=== PATIENT | female | born 1955 | race Two or more races ===

== ENCOUNTER 2020-01-14 08:46 | Outpatient (REF) | payer OTHER, SELFPAY | END 2020-01-14 08:47 | disposition home or self-care (01) | LOC: HO.LAB 08:46 | PROVIDERS: Visit Provider Internal Medicine | DX: Z20.828 Contact with and (suspected) exposure to other viral communicable diseases (principal) | CPT/HCPCS: 87635 ==

== ENCOUNTER 2021-02-04 11:24 | Outpatient (REF) | payer OTHER, SELFPAY | END 2021-02-04 11:25 | disposition home or self-care (01) | LOC: HO.LAB 11:24 | PROVIDERS: PCP Internal Medicine; Visit Provider Internal Medicine | DX: Z20.822 Contact with and (suspected) exposure to COVID-19 (principal) | CPT/HCPCS: C9803; U0003; U0005 ==

== ENCOUNTER 2021-08-08 13:00 | Outpatient (REF) | payer OTHER, SELFPAY ==
[2021-08-08 14:11] LABS: MANUAL DIFF FLAG NO
[2021-08-08 14:44] LABS: Basophils Percent Auto 0.4 % (0-2); Eosinophils Absolute Auto 0.2 X10*3/uL (0.0-0.4); Hemoglobin 11.7 g/dl (12.0-16.0); Imm Gran Abs Auto 0.01 X10*3/uL (0.00-0.03); Imm Gran Pct Auto 0.1 % (0.0-0.4); Lymphocytes Absolute Auto 3.9 X10*3/uL (1.2-4.9); Lymphocytes Percent Auto 51.4 % (20-40); Mean Corpuscular HGB Conc 32.5 g/dl (31.0-35.0); Mean Corpuscular Volume 95.2 fL (80.0-98.0); Mean Platelet Volume 10.8 fL (9.4-12.3); Monocytes Absolute Auto 0.7 X10*3/uL (0.1-1.2); Monocytes Percent Auto 8.9 % (2-11); Neutrophils Absolute Auto 2.8 x10*3/uL (2.0-8.3); Neutrophils Percent Auto 36.2 % (45-73); Platelet Count 268 X10*3/uL (160-400); Red Blood Count 3.78 X10*6/uL (4.20-5.50); Red Cell Distribution Width 12.7 % (11.0-16.0); White Blood Count 7.6 X10*3/uL (4.8-10.8)
[2021-08-08 15:07] LABS: C Reactive Protein 0.39 mg/dL (< or = 0.50)
[2021-08-08 15:23] LABS: Erythrocyte Sedimentation Rate 9 MM/HR (0-20)
[2021-08-11 16:54] LABS: Vitamin D 25-OH, D2 12 ng/mL; Vitamin D 25-OH, D3 14 ng/mL; Vitamin D 25-OH, Total 26 ng/mL (30-100)
== END 2021-08-08 13:01 | disposition home or self-care (01) ==
LOC: HO.LAB 13:00
PROVIDERS: PCP Internal Medicine; Visit Provider Internal Medicine Rheumatology
DX: M05.9 Rheumatoid arthritis with rheumatoid factor, unspecified (principal); M85.80 Other specified disorders of bone density and structure, unspecified site; Z78.0 Asymptomatic menopausal state; Z79.899 Other long term (current) drug therapy
CPT/HCPCS: 36415; 82306; 85025; 85652; 86140

== ENCOUNTER 2021-08-11 11:18 | Inpatient (IN) | payer MEDICARE, OTHER, SELFPAY ==
--- NOTE | ~2021-08-11 | XR_ITS ---
EXAMINATION: XR CHEST CLINICAL INFORMATION: Dyspnea COMPARISON: 10/29/2018 TECHNIQUE: Frontal view of the chest was obtained. FINDINGS: Density at the right lateral lung base. This could represent the patient's nipple shadow or possible underlying lung nodularity.. This cannot be said with certainty. The left lung is clear. There is no failure or obvious infiltrate. No effusion. The cardiac silhouette is comparable. XR/XR chest 1V IMPRESSION: Density at the right lung base. This could represent a lung lesion versus the patient's nipple. Recommend PA and lateral films with nipple markers to further evaluate versus CT. Otherwise no acute finding
--- NOTE | ~2021-08-11 | NM_ITS ---
EXAMINATION: NM LUNG IMAGE PERFUSION CLINICAL INFORMATION: Dyspnea. New onset atrial fibrillation COMPARISON: 08/11/2021 chest x-ray TECHNIQUE: Multiple oblique gamma camera images of the chest were obtained following the intravenous injection of 3.8 mCi of technetium 99m MAA. FINDINGS: There is homogeneous distribution of activity within both lungs. No fixed segmental or subsegmental defects were identified. NM/NM pul perfusion IMPRESSION: Homogeneous distribution of activity with no focal subsegmental or segmental defects seen. Normal perfusion study.
[2021-08-11 11:21] VITALS: BP 129/84; PULSE 118; RESP 16; TEMP 35.9; O2SAT 98; BMI 28.3
--- NOTE | 2021-08-11 11:23 | ECG_ITS ---
Test Reason : diff breathing Blood Pressure : / mmHG Vent. Rate : 149 BPM Atrial Rate : 000 BPM P-R Int : 000 ms QRS Dur : 088 ms QT Int : 294 ms P-R-T Axes : 000 -08 076 degrees QTc Int : 463 ms Atrial fibrillation with rapid ventricular response Minimal voltage criteria for LVH, may be normal variant ( Eddie product ) Anterior infarct , age undetermined Abnormal ECG When compared to the previous EKG of 28 oct 2018, rhythm change Referred By: Generic ED Physician Electronically Signed By:BRETT BENTLEY
[2021-08-11 11:41] LABS: Basophils Percent Auto 0.3 % (0-2); Eosinophils Absolute Auto 0.2 X10*3/uL (0.0-0.4); Eosinophils Percent Auto 3.3 % (0-4); Hematocrit 39.1 % (37.0-47.0); Hemoglobin 12.9 g/dl (12.0-16.0); Imm Gran Abs Auto 0.01 X10*3/uL (0.00-0.03); Imm Gran Pct Auto 0.1 % (0.0-0.4); Lymphocytes Absolute Auto 4.5 X10*3/uL (1.2-4.9); Lymphocytes Percent Auto 64.9 % (20-40); MANUAL DIFF FLAG SCAN; Mean Corpuscular Hemoglobin 30.9 pg (27.0-33.0); Mean Corpuscular Volume 93.5 fL (80.0-98.0); Monocytes Absolute Auto 0.6 X10*3/uL (0.1-1.2); Monocytes Percent Auto 8.4 % (2-11); Neutrophils Absolute Auto 1.6 x10*3/uL (2.0-8.3); Platelet Count 277 X10*3/uL (160-400); Red Blood Count 4.18 X10*6/uL (4.20-5.50); Red Cell Distribution Width 12.8 % (11.0-16.0); SCAN SMEAR FLAG 1; White Blood Count 6.9 X10*3/uL (4.8-10.8)
[2021-08-11 11:50] LABS: Prothrombin Time 11.7 SEC (9.9-13.0)
[2021-08-11 11:56] LABS: Anion Gap 10 (12-20); Blood Urea Nitrogen 9 mg/dL (9-16); Calcium 9.3 mg/dL (8.4-10.2); Carbon Dioxide 27 mmol/L (22-29); Chloride 106 mmol/L (96-108); Estimated Glomerular Filt Rate > 60; Glucose Random 118 mg/dL (60-115); Potassium 4.1 mmol/L (3.3-5.1); Sodium 139 mmol/L (135-145)
[2021-08-11 11:58] LABS: SLIDE REVIEW VERIFIED
[2021-08-11 12:01] LABS: Troponin-I High Sensitivity 11.8 ng/L (<3.5-17.0)
--- NOTE | 2021-08-11 12:42 | ED_ITS ---
HPI - SOB/Dyspnea General Chief Complaint: Weakness Stated Complaint: diff breathing feels weird Time Seen by Provider: 08/11/21 12:33 Source: patient Mode of arrival: ambulatory Limitations: no limitations History of Present Illness MD elicited complaint: shortness of breath (fatigue, malaise, just doesn't feel well) Onset (ago): day(s) (last night) Timing: constant Severity: moderate Exacerbating factors: exertion and movement Relieving factors: rest Associated symptoms: cough, dizziness and lightheadedness Treatment prior to arrival: none Related Data Home Medications Medication Instructions Recorded Confirmed acetaminophen 650 mg 650 mg PO DAILY tab 08/08/21 08/08/21 tablet,extended release (Tylenol 8 Hour) aspirin 81 mg tablet,delayed 81 mg PO DAILY 08/08/21 08/08/21 release (Adult Low Dose Aspirin) clobetasol 0.05 % topical cream 1 appl TOPICAL BID PRN 08/08/21 08/08/21 etanercept 50 mg/mL (1 mL) 50 mg SUBCUT QWEEK 08/08/21 08/08/21 subcutaneous pen injector (Enbrel SureClick) ibuprofen 600 mg tablet 600 mg PO .prn rarely PRN tab 08/08/21 08/08/21 lisinopril 40 mg tablet 40 mg PO DAILY 08/08/21 08/08/21 oxabplpx-dwq-ucayb acid 0.4 1 tab PO DAILY 08/08/21 08/08/21 mg-lycopene 300 mcg-lutein 250 mcg tablet (Centrum Silver) omeprazole 20 mg capsule,delayed 20 mg PO DAILY 08/08/21 08/08/21 release triamcinolone acetonide 0.05 % 1 appl TOPICAL BID PRN 08/08/21 08/08/21 topical ointment Allergies Allergy/AdvReac Type Severity Reaction Status Date / Time ciprofloxacin [From Cipro] Allergy Intermediate Rash Verified 08/08/21 13:22 codeine Allergy Intermediate rash Verified 08/08/21 13:22 Review of Systems Review of Systems: Constitutional : No Fever, No Chills, pos fatigue ENT/Mouth : No sore throat, No Rhinorrhea, No Swallowing Difficulty Eyes: No Eye Pain, No Swelling, No Redness Cardiovascular : No Chest Pain, positive SOB, No Orthopnea, no Edema Respiratory : pos Cough, No Sputum, No Wheezing, positive dyspnea Gastrointestinal : No Nausea, No Vomiting, No Diarrhea, No abdominal Pain, No Hematochezia, No Melena Genitourinary : No Dysuria, pos Urinary Frequency, No Hematuria Musculoskeletal : No joint pain, No Myalgias Skin : No Skin Lesions, No rash Neuro : No Weakness, No Numbness, No Dizziness, No Headache Psych : No Anxiety/Panic, No Depression Heme/Lymph: No Bruising, No Lymphadenopathy Endocrine : No Polyuria, No Polydipsia All other systems reviewed and are negative [facility] Past Medical History Attestation statement: The following information was validated with the patient. Medical History History of myocardial infarction Hypertension Long-term use of immunosuppressant medication Osteopenia after menopause Seropositive rheumatoid arthritis Social History Social History Household Members: Spouse and Family Housing: House Are you a primary palliative care specialist to a significant other at home: No Do you presently have visiting nurse or other home services: No Alcohol intake: never Patient Tobacco Use Status: Former Tobacco user Years Smoked: quit 30-40 years ago e-Cigarette/Vaping Use: Never Used Use of substances other than those prescribed or required for medical reasons: No Advance Directives: Yes Advance Directives on File: Yes Advance Directives Date on File: 08/11/21 service: No Current occupational status: employed 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 Oriented X3. No acute distress. Eyes: Pupils equal, round and reactive to light. ENT: Pharynx normal. Neck: Normal inspection. Neck supple. CVS: tachycardic and irregular heart rate and rhythm. Pulses normal. Respiratory: No respiratory distress. Breath sounds normal. Abdomen: Soft and nontender. Skin: Skin warm and dry. Normal skin color. Normal skin turgor. Extremities: trace pitting lower extremity edema ankle to mid bull. No calf ttp Neuro: Oriented X 3. No motor deficit. No sensory deficit. Course Course Course Narrative: good response will give IV lopressor 2.5mg BP stable mildly elevated ddimer VQ scan ordered hemoglobin, plts stable normal coags and renal function could start on eliquis - chadsvasc score 4 eliquis 5mg BID repeat IV lopressor HR down to 120s went of DOAC with patient - daughter and here aware would be okay with eliquis risks and benefits explained no hx of bleeding issues will admit given HR up and down to 130s at times but then down to 80s symptomatic with standing hospitalist to follow up on VQ scan MDM - SOB/Dyspnea MDM Narrative Medical decision making narrative: 66 yo female with hx of RA, GERD, HTN, prior [place] comes in with feeling fatigue, weak, increased urinary frequency has no CP but feels mildy short of breath - she noted a dry cough since last night. At this time she is in afib which is new for the patient. Will obtain labs, CXR, IV lopressor for rate control. Dispo per results and rate control. Lab Data Result diagrams: 08/11/21 11:30 08/11/21 11:30 Labs: Lab Results 08/11/21 08/11/21 08/11/21 Range/Units 11:30 11:30 11:30 WBC 6.9 (4.8-10.8) X10*3/uL RBC 4.18 L (4.20-5.50) X10*6/uL Hgb 12.9 (12.0-16.0) g/dl Hct 39.1 (37.0-47.0) % MCV 93.5 (80.0-98.0) fL MCH 30.9 (27.0-33.0) pg MCHC 33.0 (31.0-35.0) g/dl RDW 12.8 (11.0-16.0) % Plt Count 277 (160-400) X10*3/uL MPV 10.0 (9.4-12.3) fL Immature Gran % (Auto) 0.1 (0.0-0.4) % Neut % (Auto) 23.0 L (45-73) % Lymph % (Auto) 64.9 H (20-40) % Trigg % (Auto) 8.4 (2-11) % Eos % (Auto) 3.3 (0-4) % Baso % (Auto) 0.3 (0-2) % Lymph # (Auto) 4.5 (1.2-4.9) X10*3/uL Trigg # (Auto) 0.6 (0.1-1.2) X10*3/uL Eos # (Auto) 0.2 (0.0-0.4) X10*3/uL Baso # (Auto) 0.0 (0.0-0.2) X10*3/uL Abs Immat Gran (auto) 0.01 (0.00-0.03) X10*3/uL Absolute Neuts (auto) 1.6 L (2.0-8.3) x10*3/uL Absolute Nucleated RBC 0.000 (0.0-0.012) X10*3/uL Nucleated RBC % (auto) 0.0 (0.0-0.2) /100WBC Smear Tech's Comments VERIFIED PT 11.7 (9.9-13.0) SEC INR 1.0 (0.9-1.1) D-Dimer High Sensitivty NG/ML Sodium 139 (135-145) mmol/L Potassium 4.1 (3.3-5.1) mmol/L Chloride 106 (96-108) mmol/L Carbon Dioxide 27 (22-29) mmol/L Anion Gap 10 L (12-20) BUN 9 (9-16) mg/dL Creatinine 0.72 (0.5-1.4) mg/dL Estim Creat Clear Calc 74.0 Estimated GFR > 60 Random Glucose 118 H (60-115) mg/dL Calcium 9.3 (8.4-10.2) mg/dL Magnesium 1.8 (1.6-2.6) mg/dL Total Bilirubin 1.3 H (0.0-1.0) mg/dL Direct Bilirubin 0.5 (0.0-0.5) mg/dL AST 23 (5-31) U/L ALT 15 (0-31) U/L Alkaline Phosphatase 89 (39-117) U/L Troponin I High Sens (<3.5-17.0) ng/L B-Natriuretic Peptide (<100) pg/mL Total Protein 7.3 (6.5-8.0) g/dL Albumin 3.8 (3.5-5.0) g/dL TSH 1.65 (0.32-4.0) uIU/mL Urine Color Urine Appearance Urine pH (5.0-8.0) Ur Specific [place] (1.005-1.025) Urine Protein (NEG-TRACE) MG/DL Urine Glucose (UA) (NEG) MG/DL Urine Ketones (NEG) MG/DL Urine Blood (NEG) Urine Nitrite (NEG) Ur Leukocyte Esterase (NEG) Urine RBC (0) /HPF Urine WBC (0-4) /HPF Ur Squamous Epith Cells /LPF Urine Bacteria /LPF COVID-19 (REX) (Negative) COVID-19 Clin Com 08/11/21 08/11/21 08/11/21 Range/Units 11:30 13:28 13:28 WBC (4.8-10.8) X10*3/uL RBC (4.20-5.50) X10*6/uL Hgb (12.0-16.0) g/dl Hct (37.0-47.0) % MCV (80.0-98.0) fL MCH (27.0-33.0) pg MCHC (31.0-35.0) g/dl RDW (11.0-16.0) % Plt Count (160-400) X10*3/uL MPV (9.4-12.3) fL Immature Gran % (Auto) (0.0-0.4) % Neut % (Auto) (45-73) % Lymph % (Auto) (20-40) % Trigg % (Auto) (2-11) % Eos % (Auto) (0-4) % Baso % (Auto) (0-2) % Lymph # (Auto) (1.2-4.9) X10*3/uL Trigg # (Auto) (0.1-1.2) X10*3/uL Eos # (Auto) (0.0-0.4) X10*3/uL Baso # (Auto) (0.0-0.2) X10*3/uL Abs Immat Gran (auto) (0.00-0.03) X10*3/uL Absolute Neuts (auto) (2.0-8.3) x10*3/uL Absolute Nucleated RBC (0.0-0.012) X10*3/uL Nucleated RBC % (auto) (0.0-0.2) /100WBC Smear Tech's Comments PT (9.9-13.0) SEC INR (0.9-1.1) D-Dimer High Sensitivty 286 NG/ML Sodium (135-145) mmol/L Potassium (3.3-5.1) mmol/L Chloride (96-108) mmol/L Carbon Dioxide (22-29) mmol/L Anion Gap (12-20) BUN (9-16) mg/dL Creatinine (0.5-1.4) mg/dL Estim Creat Clear Calc Estimated GFR Random Glucose (60-115) mg/dL Calcium (8.4-10.2) mg/dL Magnesium (1.6-2.6) mg/dL Total Bilirubin (0.0-1.0) mg/dL Direct Bilirubin (0.0-0.5) mg/dL AST (5-31) U/L ALT (0-31) U/L Alkaline Phosphatase (39-117) U/L Troponin I High Sens 11.8 (<3.5-17.0) ng/L B-Natriuretic Peptide 590 H (<100) pg/mL Total Protein (6.5-8.0) g/dL Albumin (3.5-5.0) g/dL TSH (0.32-4.0) uIU/mL Urine Color Urine Appearance Urine pH (5.0-8.0) Ur Specific [place] (1.005-1.025) Urine Protein (NEG-TRACE) MG/DL Urine Glucose (UA) (NEG) MG/DL Urine Ketones (NEG) MG/DL Urine Blood (NEG) Urine Nitrite (NEG) Ur Leukocyte Esterase (NEG) Urine RBC (0) /HPF Urine WBC (0-4) /HPF Ur Squamous Epith Cells /LPF Urine Bacteria /LPF COVID-19 (REX) (Negative) COVID-19 Clin Com 08/11/21 08/11/21 08/11/21 Range/Units 13:28 13:28 15:41 WBC (4.8-10.8) X10*3/uL RBC (4.20-5.50) X10*6/uL Hgb (12.0-16.0) g/dl Hct (37.0-47.0) % MCV (80.0-98.0) fL MCH (27.0-33.0) pg MCHC (31.0-35.0) g/dl RDW (11.0-16.0) % Plt Count (160-400) X10*3/uL MPV (9.4-12.3) fL Immature Gran % (Auto) (0.0-0.4) % Neut % (Auto) (45-73) % Lymph % (Auto) (20-40) % Trigg % (Auto) (2-11) % Eos % (Auto) (0-4) % Baso % (Auto) (0-2) % Lymph # (Auto) (1.2-4.9) X10*3/uL Trigg # (Auto) (0.1-1.2) X10*3/uL Eos # (Auto) (0.0-0.4) X10*3/uL Baso # (Auto) (0.0-0.2) X10*3/uL Abs Immat Gran (auto) (0.00-0.03) X10*3/uL Absolute Neuts (auto) (2.0-8.3) x10*3/uL Absolute Nucleated RBC (0.0-0.012) X10*3/uL Nucleated RBC % (auto) (0.0-0.2) /100WBC Smear Tech's Comments PT (9.9-13.0) SEC INR (0.9-1.1) D-Dimer High Sensitivty NG/ML Sodium (135-145) mmol/L Potassium (3.3-5.1) mmol/L Chloride (96-108) mmol/L Carbon Dioxide (22-29) mmol/L Anion Gap (12-20) BUN (9-16) mg/dL Creatinine (0.5-1.4) mg/dL Estim Creat Clear Calc Estimated GFR Random Glucose (60-115) mg/dL Calcium (8.4-10.2) mg/dL Magnesium (1.6-2.6) mg/dL Total Bilirubin (0.0-1.0) mg/dL Direct Bilirubin (0.0-0.5) mg/dL AST (5-31) U/L ALT (0-31) U/L Alkaline Phosphatase (39-117) U/L Troponin I High Sens 15.6 (<3.5-17.0) ng/L B-Natriuretic Peptide (<100) pg/mL Total Protein (6.5-8.0) g/dL Albumin (3.5-5.0) g/dL TSH (0.32-4.0) uIU/mL Urine Color STRAW Urine Appearance CLEAR Urine pH 6.0 (5.0-8.0) Ur Specific [place] 1.010 (1.005-1.025) Urine Protein NEG (NEG-TRACE) MG/DL Urine Glucose (UA) NEG (NEG) MG/DL Urine Ketones NEG (NEG) MG/DL Urine Blood 2+ H (NEG) Urine Nitrite NEG (NEG) Ur Leukocyte Esterase 1+ H (NEG) Urine RBC 1-4 (0) /HPF Urine WBC 0-2 (0-4) /HPF Ur Squamous Epith Cells TRACE /LPF Urine Bacteria TRACE /LPF COVID-19 (REX) Negative (Negative) COVID-19 Clin Com See Note ECG Data Attestation: I personally reviewed and interpreted this ECG as follows: ECG interpretation date: 08/11/21 ECG interpretation time: 12:45 Interpretation: Rate: 149 Rhythm: afib with RVR [place]allister: left Normal QRS complex. ST T wave : no DEBBIE, nonspecific qTC: normal prior studies: none available The study has been interpreted contemporaneously by me. Discharge Plan Discharge Clinical Impression: Atrial fibrillation with rapid ventricular response Patient Disposition: Admitted As Inpatient Instructions: A-fib (Atrial Fibrillation) (ED) Prescriptions: No Action lisinopril 40 mg tablet 40 mg PO DAILY 0RF Enbrel SureClick 50 mg/mL (1 mL) pen injector 50 mg subcut QWEEK 0RF omeprazole 20 mg capsule,delayed release(DR/EC) 20 mg PO DAILY 0RF Centrum Silver 0.4 mg-300 mcg- 250 mcg tablet 1 tab PO DAILY 0RF aspirin [Adult Low Dose Aspirin] 81 mg tablet,delayed release (DR/EC) 81 mg PO DAILY 0RF acetaminophen [Tylenol 8 Hour] 650 mg tablet extended release 650 mg PO DAILY 0RF ibuprofen 600 mg tablet 600 mg PO .prn rarely PRN (Reason: prnrarely) 0RF clobetasol 0.05 % cream 1 appl topical BID PRN0RF triamcinolone acetonide 0.05 % ointment 1 appl topical BID PRN0RF
[2021-08-11] MEDS: Metoprolol Tartrate 5 MG/5 ML VIAL IVPUSH (12:57)
[2021-08-11 13:00] VITALS: BP 147/91; PULSE 141; RESP 18; O2SAT 97
--- NOTE | 2021-08-11 13:04 | PC.NURSE ---
pt has no complaints at this time. earlier had fatigue, sob, palpitations. denies ever having cp, diaphoresis,
[2021-08-11 13:21] VITALS: BP 131/92; PULSE 103; RESP 18; O2SAT 98
--- NOTE | 2021-08-11 13:22 | PC.NURSE ---
pt continues to be asymptomatic.
[2021-08-11 13:49] LABS: D Dimer High Sensitivity 286 NG/ML
[2021-08-11] MEDS: Metoprolol Tartrate 5 MG/5 ML VIAL 2.5 MG IVPUSH ×2 (13:57→15:46)
[2021-08-11 13:59] LABS: B Type Natriuretic Peptide 590 pg/mL (<100); Troponin-I High Sensitivity 15.6 ng/L (<3.5-17.0)
[2021-08-11 14:00] LABS: COVID-19 Test Negative (Negative); IDNOW Serial# 55D5AD1C
[2021-08-11 14:07] LABS: Alanine Aminotransferase 15 U/L (0-31); Albumin Level 3.8 g/dL (3.5-5.0); Alkaline Phosphatase 89 U/L (39-117); Aspartate Amino Transferase 23 U/L (5-31); Bilirubin Direct 0.5 mg/dL (0.0-0.5); Bilirubin Total 1.3 mg/dL (0.0-1.0); Magnesium 1.8 mg/dL (1.6-2.6); Total Protein 7.3 g/dL (6.5-8.0)
[2021-08-11 14:27] LABS: Thyroid Stimulating Hormone 1.65 uIU/mL (0.32-4.0)
[2021-08-11] MEDS: Furosemide 20 MG/2 ML VIAL IVPUSH (14:43)
--- NOTE | 2021-08-11 15:18 | PC.NURSE ---
pt to nuc med w/o RN. was able to ambulate to BR unassisted w/o difficulty. Report given to Vandana FRASER.
[2021-08-11 15:47] VITALS: BP 117/93; PULSE 122; RESP 16; O2SAT 97
[2021-08-11 15:50] LABS: Appearance Urine CLEAR; Color Urine STRAW; Glucose Urine UA NEG (NEG); Leukocyte Esterase Urine 1+ (NEG); Nitrite Urine NEG (NEG); UACC Culture Trigger YES; Urine Blood 2+ (NEG); Urine Ketones NEG (NEG); Urine Protein NEG (NEG-TRACE)
[2021-08-11 15:57] LABS: Bacteria Urine TRACE /LPF; Squamous Epithelial Cell Urine TRACE /LPF; WBC Urine 0-2 /HPF (0-4)
--- NOTE | 2021-08-11 16:38 | PM.IMHP ---
History of Present Illness Date of Service: 08/11/21 Attending physician on admission: Sebastian Celaya Chief Complaint: Weakness This is a 58-year-old female who presents to the emergency department with multiple complaints. Patient states overnight she woke up multiple times throughout the night to urinate. She was also not feeling ?normal.? This morning when she woke up she was feeling weak and fatigued. She has associated dizziness. She denies any chest pain, palpitations or shortness of breath. She denies any abdominal pain, dysuria, nausea, vomiting. On arrival to the emergency department she was noted to be tachycardic with a heart rate as high as the 140s. EKG revealed atrial fibrillation with rapid ventricular response. Patient has no history of atrial fibrillation. She received multiple doses of IV Lopressor in order to attempt to control heart rate however she remained tachycardic. Patient continues to report weakness and dizziness. Her lab work was significant for an elevated BNP at 590, she was treated with a dose of IV Lasix. She underwent a V/Q scan the results of which are pending at the time of admission. Review of Systems Review of Systems: Yes Unobtainable due to mental status Constitutional: Constitutional: Denies chills, Reports fatigue, Denies fever(s) and Reports lethargy ENT: Reports dizziness Cardiovascular: Cardiovascular: Denies chest pain, Denies palpitations and Denies dyspnea Respiratory: Respiratory: Denies dyspnea Gastrointestinal: Gastrointestinal: Denies abdominal pain, Denies nausea and Denies vomiting Genitourinary: Genitourinary: Reports other (urinary frequency ) Neurologic: Reports dizziness Endocrine: Endocrine: Reports fatigue and Denies palpitations [facility] Medical History History of myocardial infarction Hypertension Long-term use of immunosuppressant medication Osteopenia after menopause Seropositive rheumatoid arthritis Functional capacity: independent ambulation Pertinent family history: no history of atrial fibrillation Social History Household Members: Spouse and Family Housing: House Are you a primary career and guidance counselor to a significant other at home: No Do you presently have visiting nurse or other home services: No Alcohol intake: never Patient Tobacco Use Status: Former Tobacco user Years Smoked: quit 30-40 years ago e-Cigarette/Vaping Use: Never Used Use of substances other than those prescribed or required for medical reasons: No Advance Directives: Yes Advance Directives on File: Yes Advance Directives Date on File: 08/11/21 service: No Current occupational status: employed 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 Meds Allergies Allergy/AdvReac Type Severity Reaction Status Date / Time ciprofloxacin [From Cipro] Allergy Intermediate Rash Verified 08/08/21 13:22 codeine Allergy Intermediate rash Verified 08/08/21 13:22 Active Medications: Current Medications Pharmacy Consult (Consult Rx Perform Med Rec) 1 each MISCELLANE ONCE PRN PRN Reason: Consult order Home Medications Medication Instructions Recorded Confirmed Last Taken Type acetaminophen 650 mg 650 mg PO DAILY tab 08/08/21 08/08/21 Unknown History tablet,extended release (Tylenol 8 Hour) aspirin 81 mg tablet,delayed 81 mg PO DAILY 08/08/21 08/08/21 Unknown History release (Adult Low Dose Aspirin) clobetasol 0.05 % topical cream 1 appl TOPICAL BID PRN 08/08/21 08/08/21 Unknown History etanercept 50 mg/mL (1 mL) 50 mg SUBCUT QWEEK 08/08/21 08/08/21 Unknown History subcutaneous pen injector (Enbrel SureClick) ibuprofen 600 mg tablet 600 mg PO .prn rarely PRN tab 08/08/21 08/08/21 Unknown History lisinopril 40 mg tablet 40 mg PO DAILY 08/08/21 08/08/21 Unknown History fkpowcvb-hwh-peuim acid 0.4 1 tab PO DAILY 08/08/21 08/08/21 Unknown History mg-lycopene 300 mcg-lutein 250 mcg tablet (Centrum Silver) omeprazole 20 mg capsule,delayed 20 mg PO DAILY 08/08/21 08/08/21 Unknown History release triamcinolone acetonide 0.05 % 1 appl TOPICAL BID PRN 08/08/21 08/08/21 Unknown History topical ointment Physical Exam Vital Signs and Narrative: Vital Signs: Last Vital Signs Temp 96.7 F L 08/11/21 11:21 Pulse 122 H 08/11/21 15:47 Resp 16 08/11/21 15:47 BP 117/93 H 08/11/21 15:47 Pulse Ox 97 08/11/21 15:47 BMI result Body Mass Index 28.3 Const: General: cooperative, comfortable, alert and awake Nutritional Appearance: average body habitus Orientation/consciousness: patient oriented x3 Eyes: Pupils: Equal, round and reactive pupils present EOM: EOMs intact bilaterally Resp: Effort & Inspection: normal respiratory effort and able to speak in complete sentences Auscultation: clear to auscultation bilaterally Cardio: Rate: tachycardic Rhythm: abnormal rhythm irregularly irregular Heart sounds: Murmur heart sound present Peripheral pulses: Peripheral pulses 2+ throughout GI: Inspection: No distended Palpation (GI): Soft to palpation and nontender Neuro: General: patient oriented x3 Cranial nerves: Yes Equal, round and reactive pupils present Extrem: General: Yes no pedal edema Results Labs CBC and Chem 7: 08/11/21 11:30 08/11/21 11:30 Labs: Laboratory Results - last 24 hr 08/11/21 08/11/21 08/11/21 11:30 11:30 11:30 MCV 93.5 MCH 30.9 MCHC 33.0 RDW 12.8 Plt Count 277 MPV 10.0 Immature Gran % (Auto) 0.1 Neut % (Auto) 23.0 L Lymph % (Auto) 64.9 H [place] % (Auto) 8.4 Eos % (Auto) 3.3 Baso % (Auto) 0.3 Lymph # (Auto) 4.5 Saunders # (Auto) 0.6 Eos # (Auto) 0.2 Baso # (Auto) 0.0 Abs Immat Gran (auto) 0.01 Absolute Neuts (auto) 1.6 L Absolute Nucleated RBC 0.000 Nucleated RBC % (auto) 0.0 Smear Tech's Comments VERIFIED PT 11.7 INR 1.0 D-Dimer High Sensitivty Anion Gap 10 L Estim Creat Clear Calc 74.0 Estimated GFR > 60 Random Glucose 118 H Calcium 9.3 Magnesium 1.8 Total Bilirubin 1.3 H Direct Bilirubin 0.5 AST 23 ALT 15 Alkaline Phosphatase 89 Troponin I High Sens B-Natriuretic Peptide Total Protein 7.3 Albumin 3.8 TSH 1.65 Urine Color Urine Appearance Urine pH Ur Specific [place] Urine Protein Urine Glucose (UA) Urine Ketones Urine Blood Urine Nitrite Ur Leukocyte Esterase Urine RBC Urine WBC Ur Squamous Epith Cells Urine Bacteria COVID-19 (REX) COVID-19 Clin Com 08/11/21 08/11/21 08/11/21 11:30 13:28 13:28 MCV MCH MCHC RDW Plt Count MPV Immature Gran % (Auto) Neut % (Auto) Lymph % (Auto) [place] % (Auto) Eos % (Auto) Baso % (Auto) Lymph # (Auto) [place] # (Auto) Eos # (Auto) Baso # (Auto) Abs Immat Gran (auto) Absolute Neuts (auto) Absolute Nucleated RBC Nucleated RBC % (auto) Smear Tech's Comments PT INR D-Dimer High Sensitivty 286 Anion Gap Estim Creat Clear Calc Estimated GFR Random Glucose Calcium Magnesium Total Bilirubin Direct Bilirubin AST ALT Alkaline Phosphatase Troponin I High Sens 11.8 B-Natriuretic Peptide 590 H Total Protein Albumin TSH Urine Color Urine Appearance Urine pH Ur Specific [place] Urine Protein Urine Glucose (UA) Urine Ketones Urine Blood Urine Nitrite Ur Leukocyte Esterase Urine RBC Urine WBC Ur Squamous Epith Cells Urine Bacteria COVID-19 (REX) COVID-[employer] 08/11/21 08/11/21 08/11/21 13:28 13:28 15:41 MCV MCH MCHC RDW Plt Count MPV Immature Gran % (Auto) Neut % (Auto) Lymph % (Auto) [place] % (Auto) Eos % (Auto) Baso % (Auto) Lymph # (Auto) [place] # (Auto) Eos # (Auto) Baso # (Auto) Abs Immat Gran (auto) Absolute Neuts (auto) Absolute Nucleated RBC Nucleated RBC % (auto) Smear Tech's Comments PT INR D-Dimer High Sensitivty Anion Gap Estim Creat Clear Calc Estimated GFR Random Glucose Calcium Magnesium Total Bilirubin Direct Bilirubin AST ALT Alkaline Phosphatase Troponin I High Sens 15.6 B-Natriuretic Peptide Total Protein Albumin TSH Urine Color STRAW Urine Appearance CLEAR Urine pH 6.0 Ur Specific [place] 1.010 Urine Protein NEG Urine Glucose (UA) NEG Urine Ketones NEG Urine Blood 2+ H Urine Nitrite NEG Ur Leukocyte Esterase 1+ H Urine RBC 1-4 Urine WBC 0-2 Ur Squamous Epith Cells TRACE Urine Bacteria TRACE COVID-19 (REX) Negative COVID-[employer] Com See Note Imaging Radiologist's Impressions: Impressions Chest X-Ray 08/11/21 14:00 IMPRESSION: Density at the right lung base. This could represent a lung lesion versus the patient's nipple. Recommend PA and lateral films with nipple markers to further evaluate versus CT. Otherwise no acute finding Assessment and Plan (1) Atrial fibrillation with rapid ventricular response: Status: Acute Plan This is a 66-year-old female with history of rheumatoid arthritis on Enbrel, hypertension, coronary artery disease who presents to the emergency department with dizziness and weakness found to have new onset atrial fibrillation with rapid ventricular response New onset atrial fibrillation with rapid ventricular response Patient is symptomatic with dizziness and fatigue HR fluctuating, but remains elevated CHADS2 Vasc score 4, will start Eliquis TSH wnl, mag 1.8 -cardiology conult -ECHO -will start lopressor 12.5 mg q6h -will start AC with Eliquis -tele monitoring Elevated BNP BNP 590 received a dose of lasix in ED ECHO pending appears euvolemic at this time, will hold off on further diuretics monitor fluid status closely Med rec pending at this time. DVT prophylaxis Code status-full code Healthcare proxy-patient endorses her daughter Chanel Attending-Dr. Celaya Given new onset atrial fibrillation, ongoing tachycardia and symptoms related to the above patient will likely need 2 midnight stay in the hospital for specialist consultation, heart rate regulation and close monitoring for possible CHF. Quality Stroke Does the patient have a stroke diagnosis?: No VTE Prior VTE?: No VTE Risk Level:: Medical - moderate - high VTE Device Contraindication: N/A - Device Ordered VTE Drug Contraindication: N/A - Med Ordered
[2021-08-11 17:17] VITALS: BP 120/71; PULSE 118; RESP 16; O2SAT 98
[2021-08-11] MEDS: Metoprolol Tartrate 12.5 MG HALFTAB PO (17:17)
--- NOTE | 2021-08-11 17:22 | PHA.MEDREC ---
Pharmacy Consult ? Medication Reconciliation Pharmacy has completed the medication reconciliation. Spoke with patient in the ED who knew her medications. Her lisinopril dose was just increased to 40 mg daily but today she only took 20 mg. She also is going to start taking melatonin. The only medication she took today was lisinopril 20 mg
[2021-08-11 20:15] VITALS: BP 109/75; PULSE 90; RESP 20; TEMP 36.8; O2SAT 97
[2021-08-11] MEDS: Acetaminophen 325 MG TABLET 650 MG PO (20:27)
[2021-08-11] MEDS: Apixaban 5 MG TABLET PO (20:27)
--- NOTE | 2021-08-11 21:40 | MHC.CM.PN ---
Addendum entered by Anabel Call 08/11/21 21:46: J&J 07/03/20. Pfizer 05/02/21 Original Note: IMM 08/11. HCP#1/daughter Chanel Burrows ([phone]) & HCP#2 Teagan Nichols ([phone]). On file. J&J/Pfizer booster. Lives with . 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 Independent. No DME/Services. Drives. D/C plan is home without services. Family to transport. Pt has asbestos microscopist at [facility] Dr. Turk. CM to follow for d/c needs.
[2021-08-12 00:41] VITALS: BP 129/90; PULSE 105; RESP 18; TEMP 36.8; O2SAT 97
[2021-08-12] MEDS: Metoprolol Tartrate 12.5 MG HALFTAB PO ×3 (00:44→09:37)
[2021-08-12] MEDS: 0.9 % Sodium Chloride Flush 3 ML SYRINGE IVFLUSH ×4 (00:45→19:49)
[2021-08-12 03:56] VITALS: BP 120/80; PULSE 85; RESP 20; TEMP 36.3; O2SAT 99; BMI 28.1
[2021-08-12 06:00] LABS: Anion Gap 9 (12-20); Blood Urea Nitrogen 15 mg/dL (9-16); Calcium 9.3 mg/dL (8.4-10.2); Carbon Dioxide 29 mmol/L (22-29); Chloride 104 mmol/L (96-108); Creatinine Clr Calc Pharmacy 73.9; Estimated Glomerular Filt Rate > 60; Glucose Random 115 mg/dL (60-115); Potassium 4.1 mmol/L (3.3-5.1); Sodium 138 mmol/L (135-145)
--- NOTE | 2021-08-12 07:00 | CA_ITS ---
Transthoracic Echocardiogram Patient (Last, First, Middle): Palmira Briones, Gender: Female Date of : 1955 Age: 66 Procedure Date: 08/12/2021 Procedure Type: Transthoracic Echocardiogram [place] [facility] [place]: 162.56 cm Weight: 74.39 kg BSA: 1.80 m2 Heart Rate: bpm Surgical Assist: Referring MD: Anayeli MCDERMOTT Symptoms: new onset afib Study Quality: Good ECG Rhythm: Atrial Fibrillation with rapid rate Conclusions: - The left ventricular systolic function is mildly decreased. The calculated ejection fraction is 43% by biplane method. - There is evidence of regional wall motion abnormalities. - No obvious valvular pathology seen on this study. Findings Left Ventricle Normal left ventricular cavity size. There is moderately increased left ventricular wall thickness. The left ventricular systolic function is mildly decreased. The calculated ejection fraction is 43% by biplane method. There is evidence of regional wall motion abnormalities. Diastolic function is indeterminate on the basis of available data. Wall Motion Rest Echo Findings The basal inferoseptal and basal anteroseptal segments are hypokinetic. The basal inferior segment is akinetic. Right Ventricle Normal right ventricular cavity size and systolic function. Atria Both atria are normal in size. Aortic Valve There is a normal trileaflet aortic valve. There is no aortic valve stenosis. There is no aortic valve regurgitation. Mitral Valve The mitral valve appears normal. There is no mitral valve regurgitation. There is no mitral valve stenosis. Pulmonic Valve The pulmonic valve is likely normal. Tricuspid Valve There is trace tricuspid valve regurgitation. The pulmonary artery systolic pressure is normal. Great Vessels The asc aorta is normal in size. Venous The inferior vena cava is normal in size and collapses less than 50% with inspiration. Pericardium/Pleural There is no evidence of pericardial effusion. Prior Study Comparison No prior study available for comparison. Recommendations, Care & Conclusions No obvious valvular pathology seen on this study. Measurements 2D Linear Measurements IVSd: 1.22 0.6-0.9/0.6-1.0 cm LVIDd: 3.95 3.9-5.3/4.2-5.9 cm LVIDd Index: 2.19 2.4-3.2/2.2-3.1 cm/m2 LVIDs: 2.49 2.0-3.6 cm LVPWd: 1.23 0.7-1.1 cm Ao Root: 2.80 2.1-3.5 cm LA Diam: 3.20 2.7-3.8/3.0-4.0 cm LAIDs Index: 1.78 1.5-2.3 cm/m2 LV Mass: 208.53 67-162/88-224 g LV Mass Index: 115.85 43-95/49-115 g/m2 LVOT Diam: 2.00 3.0+(-)1.3 cm 2D Systolic Function EF 4C: 40.00 >55% EF 2C: 48.40 >55% EF BiP: 43.40 >55% Mitral Valve MV Pk E: 1.06 MV Decel Time: 164.00 E'Lateral: 12.00 E'Medial: 6.20 E/E' Med: 17.10 E/E' Lat: 8.80 Aortic Valve AoV Pk Ash: 1.35 AoV Mn Ash: 0.93 AoV VTI: 0.25 AoV Pk Grad: 7.00 Aov Mn Grad: 4.00 VERONICA Cont.VTI: 1.72 LVOT LVOT Pk Ash: 0.95 LVOT Mn Ash: 0.63 LVOT VTI: 0.13 LVOT Pk Grad: 4.00 LVOT Mn Grad: 2.00 LVOT Diam: 2.00 LVOT Area: 3.14 Diastolic Function MV Pk E: 1.06 E'Medial: 6.20 E/E' Med: 17.10 E' Laterial: 12.00 E/E' Lat: 8.80 Right Ventricle TAPSE (mm): 24.00 TVS' Ash: 9.46 Tricuspid Valve TR Pk Ash: 2.30 TR Pk Grad: 21.00 RA Press: 8.00 Great Vessels Aorta Ao Root-2D: 2.80 2.0-3.7 cm Sinus of Valsalva: 2.80 2.0-3.5 cm Ao Asc: 3.10 2.1-3.4 cm Pulmonary Valve PV Pk Ash: 0.91 Peak PV Grad: 3.00 Updated in Other Vendor System with Status of Final Prakash Veronica MD electronically signed on 08/12/2021 1:58:01 PM with status of Final
[2021-08-12 07:53] VITALS: BP 140/91; PULSE 89; RESP 18; TEMP 37; O2SAT 98
[2021-08-12] MEDS: Apixaban 5 MG TABLET PO ×2 (09:37→19:49)
[2021-08-12] MEDS: Acetaminophen 325 MG TABLET 650 MG PO ×2 (10:06→17:05)
--- NOTE | 2021-08-12 10:17 | P.CONCA_ITS ---
History of Present Illness History of Present Illness Date of Service: 08/12/21 Chief complaint: New Onset Afib Narrative: This is a cardiology consultation regarding atrial fibrillation. Patient states that she goes to [facility]. She thinks she was told to have had a prior [place] but again details are not very clear. She has had a stress test last year but again unknown findings. Patient does not have any baseline complaints like angina or shortness of breath. For the last few days she has not been feeling good. Generally sensation of feeling unwell. Some dizziness. No clear palpitations. Also no clear angina or other objective cardiac symptoms. She was seen in the ER and found to have atrial fibrillation rapid rate and subsequently admitted. There is no prior history of the same. She is on oral beta-blockers at this time on anticoagulation has also been started. Review of Systems Review of Systems: Yes all other systems are reviewed and are negative Constitutional: Constitutional: Reports as per HPI and Reports fatigue Eyes: Eyes: Reports as per HPI ENT: Reports as per HPI Cardiovascular: Cardiovascular: Reports as per HPI, Denies acrocyanosis, Denies cool extremities, Denies chest pain, Denies leg edema, Reports lightheadedness, Denies palpitations and Denies dyspnea Respiratory: Respiratory: Reports as per HPI, Reports no additional respiratory complaints and Denies dyspnea Gastrointestinal: Gastrointestinal: Reports as per HPI and Reports no additional gastrointestinal complaints Genitourinary: Genitourinary: Reports as per HPI Musculoskeletal: Musculoskeletal: Reports no additional musculoskeletal complaints and Reports as per HPI Integumentary/Breasts: Skin/Breast: Reports system reviewed and no additional complaints, except as docu Neurologic: Reports system reviewed and no additional complaints, except as documented and Reports as per HPI Psychiatric: Psychiatric: Reports no additional psychiatric complaints and Reports as per HPI Endocrine: Endocrine: Reports no additional endocrine complaints, Reports as per HPI, Reports fatigue and Denies palpitations Hematologic/Lymphatic: Hematologic/Lymphatic: Reports no additional hematologic/lymphatic complaints and Reports as per HPI Allergic/Immunologic: Allergic/Immunologic: Reports no additional allergic/immunologic complaints and Reports as per HPI FOR[facility]LY [facility], [facility] Past Medical History Medical History History of myocardial infarction Hypertension Long-term use of immunosuppressant medication Osteopenia after menopause Seropositive rheumatoid arthritis Functional capacity: independent ambulation Family History Family History (Updated 08/12/21 @ 10:21 by Prakash Veronica MD) Father Heart problem Mother CHF (congestive heart failure) Social History Social History Household Members: Family Household Members Other:: and son Housing: House Are you a primary progressive care manager to a significant other at home: No Do you presently have visiting nurse or other home services: No Alcohol intake: never Patient Tobacco Use Status: Former Tobacco user Years Smoked: quit 30-40 years ago e-Cigarette/Vaping Use: Never Used Use of substances other than those prescribed or required for medical reasons: No Have you been hit, kicked, punched, or otherwise hurt by someone within the past year? 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 Meds Allergies Allergy/AdvReac Type Severity Reaction Status Date / Time ciprofloxacin [From Cipro] Allergy Intermediate Rash Verified 08/08/21 13:22 codeine Allergy Intermediate rash Verified 08/08/21 13:22 Active Medications: Current Medications Acetaminophen (Acetaminophen 325 Mg Tablet) 650 mg PO Q6H PRN PRN Reason: Pain, Mild (Pain Scale 1-3) Last Admin: 08/12/21 10:06 Dose: 650 mg Documented by: Apixaban (Apixaban 5 Mg Tablet) 5 mg PO BID RONEL Last Admin: 08/12/21 09:37 Dose: 5 mg Documented by: Docusate Sodium (Docusate Sodium 100 Mg Capsule) 100 mg PO DAILY PRN PRN Reason: Constipation Metoprolol Tartrate (Metoprolol Tartrate 12.5 Mg Halftab) 12.5 mg PO Q6H RONEL; Protocol Last Admin: 08/12/21 09:37 Dose: 12.5 mg Documented by: Pharmacy Consult (Consult Rx Perform Med Rec) 1 each MISCELLANE ONCE PRN PRN Reason: Consult order Sodium Chloride (0.9 % Sodium Chloride Flush 3 Ml Syringe) [facility] Last Admin: 08/12/21 09:37 Dose: 3 ml Documented by: Home Medications Medication Instructions Recorded Confirmed Last Taken Type acetaminophen 650 mg 1,300 mg PO BID tab 08/08/21 08/11/21 08/10/21 History tablet,extended release (Tylenol 8 Hour) aspirin 81 mg tablet,delayed 81 mg PO DAILY 08/08/21 08/11/21 08/10/21 History release (Adult Low Dose Aspirin) clobetasol 0.05 % topical cream 1 appl TOPICAL BID PRN 08/08/21 08/11/21 08/10/21 History etanercept 50 mg/mL (1 mL) 50 mg SUBCUT TU@0900 08/08/21 08/11/21 08/10/21 History subcutaneous pen injector (Enbrel SureClick) ibuprofen 600 mg tablet 600 mg PO Q8H PRN tab 08/08/21 08/11/21 08/10/21 History lisinopril 40 mg tablet 40 mg PO DAILY 08/08/21 08/11/21 08/11/21 History [id number] acid 0.4 1 tab PO DAILY 08/08/21 08/11/21 08/10/21 History mg-lycopene 300 mcg-lutein 250 mcg tablet (Centrum Silver) omeprazole 20 mg capsule,delayed 20 mg PO DAILY@0630 08/08/21 08/11/21 08/10/21 History release triamcinolone acetonide 0.05 % 1 appl TOPICAL BID PRN 08/08/21 08/11/21 08/10/21 History topical ointment melatonin 3 mg tablet 6 mg PO BEDTIME PRN 08/11/21 08/11/21 08/10/21 History Physical Exam Vital Signs: Vital Signs: Last Vital Signs Temp 98.6 F 08/12/21 07:53 Pulse 89 08/12/21 07:53 Resp 18 08/12/21 07:53 BP 140/91 H 08/12/21 07:53 Pulse Ox 98 08/12/21 07:53 BMI result Body Mass Index 28.1 Const: General: comfortable and no acute distress Orientation/consciousness: patient oriented x3 HEENT: Other: Unremarkable Head: Yes normal to inspection Neck: Neck: Yes normal visual inspection Chest: Chest palpation & inspection: normal inspection of the chest Resp: Auscultation: clear to auscultation bilaterally Cardio: Palpation: normal PMI Heart sounds: S1 normal heart sound present, S2 normal heart sound present, no gallops, no murmurs and no rubs GI: Palpation (GI): Soft to palpation Back/Spine/Pelvis: Other: unremarkable Skin: General skin exam: no rashes or lesions noted Neuro: General: patient oriented x3 Extrem: General: Yes normal to inspection Psych: Mental Status: mental status grossly normal Objective Labs and Meds Result diagrams: 08/11/21 11:30 08/12/21 05:17 Lab results: Laboratory Results - last 24 hr 08/11/21 08/11/21 08/11/21 11:30 11:30 11:30 WBC 6.9 RBC 4.18 L Hgb 12.9 Hct 39.1 MCV 93.5 MCH 30.9 MCHC 33.0 RDW 12.8 Plt Count 277 MPV 10.0 Immature Gran % (Auto) 0.1 Neut % (Auto) 23.0 L Lymph % (Auto) 64.9 H [place] % (Auto) 8.4 Eos % (Auto) 3.3 Baso % (Auto) 0.3 Lymph # (Auto) 4.5 [place] # (Auto) 0.6 Eos # (Auto) 0.2 Baso # (Auto) 0.0 Abs Immat Gran (auto) 0.01 Absolute Neuts (auto) 1.6 L Absolute Nucleated RBC 0.000 Nucleated RBC % (auto) 0.0 Smear Tech's Comments VERIFIED PT 11.7 INR 1.0 D-Dimer High Sensitivty Sodium 139 Potassium 4.1 Chloride 106 Carbon Dioxide 27 Anion Gap 10 L BUN 9 Creatinine 0.72 Estim Creat Clear Calc 74.0 Estimated GFR > 60 Random Glucose 118 H Calcium 9.3 Magnesium 1.8 Total Bilirubin 1.3 H Direct Bilirubin 0.5 AST 23 ALT 15 Alkaline Phosphatase 89 Troponin I High Sens B-Natriuretic Peptide Total Protein 7.3 Albumin 3.8 TSH 1.65 Urine Color Urine Appearance Urine pH Ur Specific [place] Urine Protein Urine Glucose (UA) Urine Ketones Urine Blood Urine Nitrite Ur Leukocyte Esterase Urine RBC Urine WBC Ur Squamous Epith Cells Urine Bacteria COVID-19 (REX) [email or web address] 08/11/21 08/11/21 08/11/21 11:30 13:28 13:28 WBC RBC Hgb Hct MCV MCH MCHC RDW Plt Count MPV Immature Gran % (Auto) Neut % (Auto) Lymph % (Auto) [place] % (Auto) Eos % (Auto) Baso % (Auto) Lymph # (Auto) [place] # (Auto) Eos # (Auto) Baso # (Auto) Abs Immat Gran (auto) Absolute Neuts (auto) Absolute Nucleated RBC Nucleated RBC % (auto) Smear Tech's Comments PT INR D-Dimer High Sensitivty 286 Sodium Potassium Chloride Carbon Dioxide Anion Gap BUN Creatinine Estim Creat Clear Calc Estimated GFR Random Glucose Calcium Magnesium Total Bilirubin Direct Bilirubin AST ALT Alkaline Phosphatase Troponin I High Sens 11.8 B-Natriuretic Peptide 590 H Total Protein Albumin TSH Urine Color Urine Appearance Urine pH Ur Specific [place] Urine Protein Urine Glucose (UA) Urine Ketones Urine Blood Urine Nitrite Ur Leukocyte Esterase Urine RBC Urine WBC Ur Squamous Epith Cells Urine Bacteria COVID-19 (REX) [employer] 08/11/21 08/11/21 08/11/21 13:28 13:28 15:41 WBC RBC Hgb Hct MCV MCH MCHC RDW Plt Count MPV Immature Gran % (Auto) Neut % (Auto) Lymph % (Auto) [place] % (Auto) Eos % (Auto) Baso % (Auto) Lymph # (Auto) [place] # (Auto) Eos # (Auto) Baso # (Auto) Abs Immat Gran (auto) Absolute Neuts (auto) Absolute Nucleated RBC Nucleated RBC % (auto) Smear Tech's Comments PT INR D-Dimer High Sensitivty Sodium Potassium Chloride Carbon Dioxide Anion Gap BUN Creatinine Estim Creat Clear Calc Estimated GFR Random Glucose Calcium Magnesium Total Bilirubin Direct Bilirubin AST ALT Alkaline Phosphatase Troponin I High Sens 15.6 B-Natriuretic Peptide Total Protein Albumin TSH Urine Color STRAW Urine Appearance CLEAR Urine pH 6.0 Ur Specific [place] 1.010 Urine Protein NEG Urine Glucose (UA) NEG Urine Ketones NEG Urine Blood 2+ H Urine Nitrite NEG Ur Leukocyte Esterase 1+ H Urine RBC 1-4 Urine WBC 0-2 Ur Squamous Epith Cells TRACE Urine Bacteria TRACE COVID-19 (REX) Negative [email or web address] See Note 08/12/21 05:17 WBC RBC Hgb Hct MCV MCH MCHC RDW Plt Count MPV Immature Gran % (Auto) Neut % (Auto) Lymph % (Auto) [place] % (Auto) Eos % (Auto) Baso % (Auto) Lymph # (Auto) [place] # (Auto) Eos # (Auto) Baso # (Auto) Abs Immat Gran (auto) Absolute Neuts (auto) Absolute Nucleated RBC Nucleated RBC % (auto) Smear Tech's Comments PT INR D-Dimer High Sensitivty Sodium 138 Potassium 4.1 Chloride 104 Carbon Dioxide 29 Anion Gap 9 L BUN 15 D Creatinine 0.72 Estim Creat Clear Calc 73.9 Estimated GFR > 60 Random Glucose 115 Calcium 9.3 Magnesium Total Bilirubin Direct Bilirubin AST ALT Alkaline Phosphatase Troponin I High Sens B-Natriuretic Peptide Total Protein Albumin TSH Urine Color Urine Appearance Urine pH Ur Specific [place] Urine Protein Urine Glucose (UA) Urine Ketones Urine Blood Urine Nitrite Ur Leukocyte Esterase Urine RBC Urine WBC Ur Squamous Epith Cells Urine Bacteria COVID-19 (REX) COVID-19 Clin Com ECG Interpretation: EKG with atrial fibrillation at 149/Min; voltage criteria for LVH; cannot exclude old anterior infarct; lateral ST depression. Imaging Radiologist's impression: Impressions Chest X-Ray 08/11/21 14:00 IMPRESSION: Density at the right lung base. This could represent a lung lesion versus the patient's nipple. Recommend PA and lateral films with nipple markers to further evaluate versus CT. Otherwise no acute finding Pulmonary Perfusion Imaging 08/11/21 15:20 IMPRESSION: Homogeneous distribution of activity with no focal subsegmental or segmental defects seen. Normal perfusion study. Assessment and Plan (1) Atrial fibrillation with rapid ventricular response: Status: Acute (2) Essential hypertension: Status: Acute Plan Clinically, she is in atrial fibrillation rapid rate. Currently, rate around 110-120/Min. High sensitivity troponins are 11.8 and 15.6. Cardiac BNP is 590. In 2019, it was 81. Creatinine is 0.72. Potassium 4.1. Hemoglobin 12.9. Platelets 277. We will increase the beta-blockers. Also on Eliquis. Will contact her disease case manager's office for records. Otherwise, will need echocardiogram for cardiac function assessment. Once these reviewed, we will follow up with you. Discussed with daughter at the bedside. Procedures Date of Service Date of Service: 08/12/21
--- NOTE | 2021-08-12 10:44 | P.PNIM_ITS ---
Subjective Subjective Date of Service: 08/12/21 Interval History: Seen and examined this morning Follow-up for new onset atrial fibrillation No overnight events Heart rate under better control this morning Patient denies any chest pain, shortness of breath, palpitations She is still not feeling well, primarily reporting generalized weakness Review of Systems Review of Systems: Yes all other systems are reviewed and are negative Constitutional Constitutional: Denies chills and Denies fever(s) Cardiovascular Cardiovascular: Denies chest pain, Denies palpitations and Denies dyspnea Respiratory Respiratory: Denies cough and Denies dyspnea Gastrointestinal Gastrointestinal: Denies abdominal pain, Denies diarrhea, Denies nausea and Denies vomiting Genitourinary Genitourinary: Reports nocturia Endocrine Endocrine: Denies palpitations Physical Exam Vital Signs: Vital Signs: Last Vital Signs Temp 98.6 F 08/12/21 07:53 Pulse 89 08/12/21 07:53 Resp 18 08/12/21 07:53 BP 140/91 H 08/12/21 07:53 Pulse Ox 98 08/12/21 07:53 BMI result Body Mass Index 28.1 Const: General: cooperative, comfortable, alert and awake Nutritional Appearance: average body habitus Orientation/consciousness: patient oriented x3 Eyes: Pupils: Equal, round and reactive pupils present EOM: EOMs intact bilaterally Resp: Effort & Inspection: normal respiratory effort and able to speak in complete sentences Auscultation: clear to auscultation bilaterally Cardio: Rhythm: abnormal rhythm irregularly irregular Heart sounds: Murmur heart sound present Peripheral pulses: Peripheral pulses 2+ throughout GI: Inspection: No distended Palpation (GI): Soft to palpation and no ntender Neuro: General: patient oriented x3 Cranial nerves: Yes Equal, round and reactive pupils present Extrem: General: Yes no pedal edema Objective Data Active Medications Acetaminophen (Acetaminophen 325 Mg Tablet) 650 mg PO Q6H PRN PRN Reason: Pain, Mild (Pain Scale 1-3) Last Admin: 08/12/21 10:06 Dose: 650 mg Documented by: KENYATTA Apixaban (Apixaban 5 Mg Tablet) 5 mg PO BID [facility] Last Admin: 08/12/21 09:37 Dose: 5 mg Documented by: KENYATTA Docusate Sodium (Docusate Sodium 100 Mg Capsule) 100 mg PO DAILY PRN PRN Reason: Constipation Lisinopril (Lisinopril 20 Mg Tablet) 20 mg PO DAILY [facility]; Protocol Melatonin (Melatonin 3 Mg Tablet) 6 mg PO BEDTIME PRN PRN Reason: Sleep Metoprolol Tartrate (Metoprolol Tartrate 12.5 Mg Halftab) 12.5 mg PO Q6H [facility]; Protocol Stop: 08/12/21 11:00 Last Admin: 08/12/21 09:37 Dose: 12.5 mg Documented by: EKNYATTA Metoprolol Tartrate (Metoprolol Tartrate 50 Mg Tablet) 50 mg PO Q6H [facility]; Protocol Multivitamins/Vitamin C (Multivitamin Tablet) 1 tab PO DAILY [facility] Non-Formulary Medication (Triamcinolone Acetonide) 1 appl TOPICAL BID PRN PRN Reason: Itching Non-Formulary Medication (Clobetasol) 1 appl TOPICAL BID PRN PRN Reason: Itching Omeprazole (Omeprazole 20 Mg Capsule.Dr) 20 mg PO DAILY@0630 [facility] Pharmacy Consult (Consult Rx Perform Med Rec) 1 each MISCELLANE ONCE PRN PRN Reason: Consult order Sodium Chloride (0.9 % Sodium Chloride Flush 3 Ml Syringe) [address] [facility] [facility] Last Admin: 08/12/21 09:37 Dose: 3 ml Documented by: KENYATTA Labs CBC & Chem 7: 08/11/21 11:30 08/12/21 05:17 Labs: Laboratory Results - last 24 hr 08/11/21 08/11/21 08/11/21 11:30 11:30 11:30 MCV 93.5 MCH 30.9 MCHC 33.0 RDW 12.8 Plt Count 277 MPV 10.0 Immature Gran % (Auto) 0.1 Neut % (Auto) 23.0 L Lymph % (Auto) 64.9 H Gonzales % (Auto) 8.4 Eos % (Auto) 3.3 Baso % (Auto) 0.3 Lymph # (Auto) 4.5 Gonzales # (Auto) 0.6 Eos # (Auto) 0.2 Baso # (Auto) 0.0 Abs Immat Gran (auto) 0.01 Absolute Neuts (auto) 1.6 L Absolute Nucleated RBC 0.000 Nucleated RBC % (auto) 0.0 Smear Tech's Comments VERIFIED PT 11.7 INR 1.0 D-Dimer High Sensitivty Anion Gap 10 L Estim Creat Clear Calc 74.0 Estimated GFR > 60 Random Glucose 118 H Calcium 9.3 Magnesium 1.8 Total Bilirubin 1.3 H Direct Bilirubin 0.5 AST 23 ALT 15 Alkaline Phosphatase 89 Troponin I High Sens B-Natriuretic Peptide Total Protein 7.3 Albumin 3.8 TSH 1.65 Urine Color Urine Appearance Urine pH Ur Specific Sheldon Urine Protein Urine Glucose (UA) Urine Ketones Urine Blood Urine Nitrite Ur Leukocyte Esterase Urine RBC Urine WBC Ur Squamous Epith Cells Urine Bacteria COVID-19 (REX) COVID-19 Clin Com 08/11/21 08/11/21 08/11/21 11:30 13:28 13:28 MCV MCH MCHC RDW Plt Count MPV Immature Gran % (Auto) Neut % (Auto) Lymph % (Auto) Gonzales % (Auto) Eos % (Auto) Baso % (Auto) Lymph # (Auto) Gonzales # (Auto) Eos # (Auto) Baso # (Auto) Abs Immat Gran (auto) Absolute Neuts (auto) Absolute Nucleated RBC Nucleated RBC % (auto) Smear Tech's Comments PT INR D-Dimer High Sensitivty 286 Anion Gap Estim Creat Clear Calc Estimated GFR Random Glucose Calcium Magnesium Total Bilirubin Direct Bilirubin AST ALT Alkaline Phosphatase Troponin I High Sens 11.8 B-Natriuretic Peptide 590 H Total Protein Albumin TSH Urine Color Urine Appearance Urine pH Ur Specific Sheldon Urine Protein Urine Glucose (UA) Urine Ketones Urine Blood Urine Nitrite Ur Leukocyte Esterase Urine RBC Urine WBC Ur Squamous Epith Cells Urine Bacteria COVID-19 (REX) COVID-19 GOOM Com 08/11/21 08/11/21 08/11/21 13:28 13:28 15:41 MCV MCH MCHC RDW Plt Count MPV Immature Gran % (Auto) Neut % (Auto) Lymph % (Auto) Gonzales % (Auto) Eos % (Auto) Baso % (Auto) Lymph # (Auto) Gonzales # (Auto) Eos # (Auto) Baso # (Auto) Abs Immat Gran (auto) Absolute Neuts (auto) Absolute Nucleated RBC Nucleated RBC % (auto) Smear Tech's Comments PT INR D-Dimer High Sensitivty Anion Gap Estim Creat Clear Calc Estimated GFR Random Glucose Calcium Magnesium Total Bilirubin Direct Bilirubin AST ALT Alkaline Phosphatase Troponin I High Sens 15.6 B-Natriuretic Peptide Total Protein Albumin TSH Urine Color STRAW Urine Appearance CLEAR Urine pH 6.0 Ur Specific Sheldon 1.010 Urine Protein NEG Urine Glucose (UA) NEG Urine Ketones NEG Urine Blood 2+ H Urine Nitrite NEG Ur Leukocyte Esterase 1+ H Urine RBC 1-4 Urine WBC 0-2 Ur Squamous Epith Cells TRACE Urine Bacteria TRACE COVID-19 (REX) Negative COVID-19 Clin Com See Note 08/12/21 05:17 MCV MCH MCHC RDW Plt Count MPV Immature Gran % (Auto) Neut % (Auto) Lymph % (Auto) Gonzales % (Auto) Eos % (Auto) Baso % (Auto) Lymph # (Auto) Gonzales # (Auto) Eos # (Auto) Baso # (Auto) Abs Immat Gran (auto) Absolute Neuts (auto) Absolute Nucleated RBC Nucleated RBC % (auto) Smear Tech's Comments PT INR D-Dimer High Sensitivty Anion Gap 9 L Estim Creat Clear Calc 73.9 Estimated GFR > 60 Random Glucose 115 Calcium 9.3 Magnesium Total Bilirubin Direct Bilirubin AST ALT Alkaline Phosphatase Troponin I High Sens B-Natriuretic Peptide Total Protein Albumin TSH Urine Color Urine Appearance Urine pH Ur Specific Sheldon Urine Protein Urine Glucose (UA) Urine Ketones Urine Blood Urine Nitrite Ur Leukocyte Esterase Urine RBC Urine WBC Ur Squamous Epith Cells Urine Bacteria COVID-19 (REX) COVID-19 Clin Com Microbiology Microbiology Results: Microbiology 08/11/21 15:51 Urine Culture - Final Urine clean catch - Urine cash top Assessment and Plan (1) Atrial fibrillation with rapid ventricular response: Status: Acute Plan This is a 66-year-old female with history of rheumatoid arthritis on Enbrel, hypertension, coronary artery disease who presents to the emergency department with dizziness and weakness found to have new onset atrial fibrillation with rapid ventricular response New onset atrial fibrillation with rapid ventricular response Patient is symptomatic with dizziness and fatigue HR fluctuating, still not at goal CHADS2 Vasc score 4, started on Eliquis this admission TSH wnl, mag 1.8 seen by cardiology will increase lopressor to 50mg q6h -ECHO pending -tele monitoring Elevated BNP BNP 590 received a dose of lasix in ED ECHO pending appears euvolemic at this time, will hold off on further diuretics monitor fluid status closely HTN will hold Lisinopril for now as lopressor is being increased for HR control monitor BP closely, if BP not at goal with increased lopressor, will resume lisinopril gerd continue prilosec RA on Enbrel DVT prophylaxis Code status-full code Healthcare proxy-patient endorses her daughter Chanel Attending-Dr. Celaya Given new onset atrial fibrillation, ongoing tachycardia and symptoms related to the above patient will likely need 2 midnight stay in the hospital for sp ecialist consultation, heart rate regulation and close monitoring for possible CHF. Quality Stroke Does the patient have a stroke diagnosis?: No VTE Prior VTE?: No VTE Risk Level:: Medical - moderate - high VTE Device Contraindication: N/A - Device Ordered VTE Drug Contraindication: N/A - Med Ordered
[2021-08-12] MEDS: Metoprolol Tartrate 25 MG TABLET PO (11:01)
[2021-08-12 11:08] VITALS: BP 100/67; PULSE 78; RESP 18; TEMP 37.5; O2SAT 98
[2021-08-12] MEDS: Metoprolol Tartrate 50 MG TABLET PO ×2 (12:59→19:49)
--- NOTE | 2021-08-12 13:43 | MHC.CM.PN ---
per rounds no dc date for pt at this time
[2021-08-13] VITALS: BP 123/86; PULSE 85; RESP 18; TEMP 37.1; O2SAT 98
[2021-08-13] MEDS: Metoprolol Tartrate 50 MG TABLET PO ×2 (01:04→06:18)
[2021-08-13 03:54] VITALS: BP 125/71; PULSE 89; RESP 20; TEMP 36.8; O2SAT 93
[2021-08-13] MEDS: Omeprazole 20 MG CAPSULE.DR PO (06:18)
[2021-08-13 07:41] VITALS: BP 125/83; PULSE 84; RESP 20; TEMP 36.7; O2SAT 96
[2021-08-13] MEDS: Multivitamin TABLET 1 TAB PO (09:39)
[2021-08-13] MEDS: 0.9 % Sodium Chloride Flush 3 ML SYRINGE IVFLUSH (09:39)
[2021-08-13] MEDS: Apixaban 5 MG TABLET PO (09:39)
--- NOTE | 2021-08-13 09:50 | PM.PNCARD ---
Subjective Subjective Date of Service: 08/13/21 Interval history: She states that she feels okay. No specific complaints like angina or shortness of breath or in fact anything cardiac related at all. She does not feel any palpitations. No dizziness or presyncope. Review of Systems Review of Systems Yes all other systems are reviewed and are negative Constitutional: Reports as per HPI and Reports fatigue Eyes: Reports as per HPI Reports as per HPI Cardiovascular: Reports as per HPI, Denies acrocyanosis, Denies cool extremities, Denies chest pain, Denies leg edema, Reports lightheadedness, Denies palpitations and Denies dyspnea Respiratory: Reports as per HPI, Reports no additional respiratory complaints and Denies dyspnea Gastrointestinal: Reports as per HPI and Reports no additional gastrointestinal complaints Musculoskeletal: Reports no additional musculoskeletal complaints and Reports as per HPI Skin/Breast: Reports system reviewed and no additional complaints, except as docu Reports system reviewed and no additional complaints, except as documented and Reports as per HPI Psychiatric: Reports no additional psychiatric complaints and Reports as per HPI Endocrine: Reports no additional endocrine complaints, Reports as per HPI, Reports fatigue and Denies palpitations Hematologic/Lymphatic: Reports no additional hematologic/lymphatic complaints and Reports as per HPI Allergic/Immunologic: Reports no additional allergic/immunologic complaints and Reports as per HPI Physical Exam Vital Signs: Last Vital Signs Temp 98.1 F 08/13/21 07:41 Pulse 84 08/13/21 07:41 Resp 20 08/13/21 07:41 BP 125/83 08/13/21 07:41 Pulse Ox 96 08/13/21 07:41 BMI result Body Mass Index 28.1 Const General: comfortable and no acute distress Orientation/consciousness: patient oriented x3 HEENT Other: Unremarkable Head: Yes normal to inspection Neck Neck: Yes normal visual inspection Chest Chest palpation & inspection: normal inspection of the chest Resp Auscultation: clear to auscultation bilaterally Cardio Palpation: normal PMI Heart sounds: S1 normal heart sound present, S2 normal heart sound present, no gallops, no murmurs and no rubs GI Palpation (GI): Soft to palpation Back/Spine/Pelvis Other: unremarkable Skin General skin exam: no rashes or lesions noted Neuro General: patient oriented x3 Extrem General: Yes normal to inspection Psych Mental Status: mental status grossly normal Objective Labs and Meds Result diagrams: 08/11/21 11:30 08/12/21 05:17 Progress Note: A&P Assessment and plan (1) Atrial fibrillation with rapid ventricular response: Status: Acute (2) Essential hypertension: Status: Acute Plan Echocardiogram with LVEF of 43%. Wall motion abnormalities seen. No valvular issues. Recent office note from [facility] Cardiology reviewed including echocardiogram and stress test. Overall, she seems to be stable on the current regimen including metoprolol 50 mg q.6 hours and Eliquis. Telemetry still shows atrial fibrillation but rate is well controlled. Clinically she does not have any symptoms either. Discharge planning. Can change to metoprolol tartrate 100 mg b.i.d.. Continue Eliquis. She can follow-up with her own health sciences dean from [facility]. She may need an outpatient cardioversion after 4 weeks of anticoagulation. Discussed about this with patient too. Time Spent With Patient Time: Total time spent is greater than 50% in coordination of care (as documented) at patient's floor/unit and/or counseling patient: 35min. Progress Note: Quality Stroke Does the patient have a stroke diagnosis?: No Procedures Date of Service Date of Service: 08/13/21
--- NOTE | 2021-08-13 10:25 | PM.DS ---
DS: Providers Provider Date of Service: 08/13/21 Date of admission: 08/11/21 16:36 Date of discharge: 08/13/21 Primary care physician: Artemio Pearce MD Consults: 08/11/21 16:35 Consult to Cardiology Routine Consulting Provider: Prakash Veronica Reason for consultation: new onset afib with RVR Has provider been notified: No Attending physician on discharge: Davi Lind Discharging clinician: Anayeli Inman DS: Diagnosis Discharge Diagnosis (1) Atrial fibrillation with rapid ventricular response: Status: Acute (2) Essential hypertension: Status: Acute DS: Summary Hospital Course Hospital Course: From H&P on the day of admission This is a 58-year-old female who presents to the emergency department with multiple complaints.? Patient states overnight she woke up multiple times throughout the night to urinate.? She was also not feeling ?normal.? This morning when she woke up she was feeling weak and fatigued.? She has associated dizziness.? She denies any chest pain, palpitations or shortness of breath. She denies any abdominal pain, dysuria, nausea, vomiting.? On arrival to the emergency department she was noted to be tachycardic with a heart rate as high as the 140s.? EKG revealed atrial fibrillation with rapid ventricular response.? Patient has no history of atrial fibrillation.? She received multiple doses of IV Lopressor in order to attempt to control heart rate however she remained tachycardic. Patient continues to report weakness and dizziness. Her lab work was significant for an elevated BNP at 590, she was treated with a dose of IV Lasix.? She underwent a V/Q scan the results of which are pending at the time of admission. Discharge diagnoses Atrial fibrillation with rapid ventricular response, new onset Essential hypertension Dizziness Atrial fibrillation with rapid ventricular response. In the emergency department patient was noted to be in new onset atrial fibrillation. Her heart rate was uncontrolled. She was admitted to the hospital for further management. She was started on Lopressor which was uptitrated for adequate response. Her heart rate is now under adequate control and maintained in the 80s. She will be discharged home on 100 mg b.i.d. of metoprolol tartrate. Given elevated chads 2 Vasc score she was started on anticoagulation with Eliquis. She is encouraged to monitor for signs of bleeding and avoid concurrent NSAIDs. She was seen in consultation by Cardiology and underwent echocardiogram. Records were obtained from her outpatient primary developer programmer analyst and no change was appreciated on her repeat echocardiogram. She will be discharged home with plan to follow-up with her primary developer programmer analyst. Her lisinopril was discontinued as metoprolol was started in its place. She can follow-up with her developer programmer analyst to monitor blood pressure. Her blood pressure has been controlled in the 120s systolic since increasing dose of metoprolol. Symptoms of dizziness have resolved with control of heart rate. Time Spent with Patient Time attestation: Total time spent providing and/or coordinating discharge services: Discharge coordination time: Greater than 30 minutes Quality: Safe Use of Opioids Does Pt have an Active Cancer Diagnosis on the Problem List?: No Quality: Stroke Does the patient have a stroke diagnosis?: No Physical Exam Vital Signs: Vital Signs: Last Vital Signs Temp 98.1 F 08/13/21 07:41 Pulse 84 08/13/21 07:41 Resp 20 08/13/21 07:41 BP 125/83 08/13/21 07:41 Pulse Ox 96 08/13/21 07:41 BMI result Body Mass Index 28.1 Const: General: cooperative, comfortable, alert and awake Nutritional Appearance: average body habitus Orientation/consciousness: patient oriented x3 Eyes: Pupils: Equal, round and reactive pupils present EOM: EOMs intact bilaterally Resp: Effort & Inspection: normal respiratory effort and able to speak in complete sentences Auscultation: clear to auscultation bilaterally Cardio: Rate: tachycardic Rhythm: abnormal rhythm irregularly irregular Heart sounds: Murmur heart sound present Peripheral pulses: Peripheral pulses 2+ throughout GI: Inspection: No distended Palpation (GI): Soft to palpation and nontender Neuro: General: patient oriented x3 Cranial nerves: Yes Equal, round and reactive pupils present Extrem: General: Yes no pedal edema Discharge Plan Discharge Patient Disposition: Home, Self-Care Discharge Diagnosis: Atrial fibrillation with RVR Referrals: Artemio Pearce MD [Primary Care Provider] - 1 Week Discharge Medications: New Eliquis 5 mg Tablet 5 mg PO BID 30 Days Qty: 60 0RF metoprolol tartrate 100 mg tablet 100 mg PO BID 30 Days Qty: 60 0RF Continued melatonin 3 mg Tablet 6 mg PO BEDTIME PRN (Reason: Sleep) 0RF Enbrel SureClick 50 mg/mL (1 mL) pen injector 50 mg subcut TU@0900 0RF omeprazole 20 mg capsule,delayed release(DR/EC) 20 mg PO DAILY@0630 0RF Centrum Silver 0.4 mg-300 mcg- 250 mcg tablet 1 tab PO DAILY 0RF acetaminophen [Tylenol 8 Hour] 650 mg tablet extended release 1,300 mg PO BID 0RF clobetasol 0.05 % cream 1 appl topical BID PRN (Reason: Itching) 0RF triamcinolone acetonide 0.05 % ointment 1 appl topical BID PRN (Reason: Itching) 0RF Discontinued lisinopril 40 mg tablet 40 mg PO DAILY 0RF aspirin [Adult Low Dose Aspirin] 81 mg tablet,delayed release (DR/EC) 81 mg PO DAILY 0RF ibuprofen 600 mg tablet 600 mg PO Q8H PRN (Reason: Pain (Scale Score 4-6)) 0RF Discharge Orders: Discharge Order (Routine); Ordered 08/13/21 Ordered By: Anayeli Inman Activity on Discharge: As tolerated Stand Alone Forms: Patient Portal Discharge page Care Plan Goals: see below Health Concerns: New onset atrial fibrillation with rapid ventricular response Plan of Treatment: You have been started on a blood thinner. Please take as prescribed. Monitor for signs of bleeding. Do not take NSAIDs in combination with blood thinners as they increase risk of bleeding Your Lisinopril has been stopped you have been started on metoprolol to control your heart rate Call to schedule a follow up appointment with your developer programmer analyst Assessment: See discharge summary Patient Instructions: A-fib (Atrial Fibrillation) (ED) Discharge Date/Time: 08/13/21 14:25
--- NOTE | 2021-08-13 10:27 | MHC.CM.PN ---
Patient has been medically cleared for dc to home today, self care. Last IMM addressed on 08/11/21.
== END 2021-08-13 14:25 | disposition home or self-care (01) | DRG 309 ==
LOC: HO.ED 16:25 → HO.EDOVER 16:45 → HO.IMC 08-12 03:10
PROVIDERS: Admitting Provider Physician Assistant Medical; Emergency Provider Emergency Medicine; PCP Internal Medicine; Visit Provider Physician Assistant Medical
DX: I48.91 Unspecified atrial fibrillation (principal); D84.821 Immunodeficiency due to drugs; I50.9 Heart failure, unspecified; M05.9 Rheumatoid arthritis with rheumatoid factor, unspecified; I25.2 Old myocardial infarction; Z20.822 Contact with and (suspected) exposure to COVID-19; Z87.891 Personal history of nicotine dependence; Z88.1 Allergy status to other antibiotic agents; Z88.5 Allergy status to narcotic agent; Z79.01 Long term (current) use of anticoagulants; Z79.899 Other long term (current) drug therapy
CPT/HCPCS: 36415; 71045; 78580; 80048; 80076; 81001; 83735; 83880; 84443; 84484; 85025; 85379; 85610; 87086; 87635; 93005; 93306; 96374; 96375; 96376; 99285; A9540; J1940

== ENCOUNTER 2021-09-22 04:38 | Emergency (ER) | payer OTHER, SELFPAY ==
--- NOTE | ~2021-09-22 | CT_ITS ---
EXAMINATION: CT HEAD WITHOUT CONTRAST CLINICAL INFORMATION: Headache. On Eliquis. COMPARISON: 10/29/2018 TECHNIQUE: Contiguous axial imaging was performed from the skull base to vertex without intravenous contrast. This CT examination was performed using dose optimization techniques as appropriate, variously including the following: * Automated exposure control * Adjustment of mA and/or kV according to patient size (this includes techniques or standardized protocols for targeted exams where dose is matched to indication/reason for exam; i.e. extremities or head) Use of iterative reconstruction technique DLP: 596 mGy-cm. FINDINGS: There is no evidence of acute intracranial hemorrhage or territorial infarction. No abnormal mass effect or midline shift is seen. San to white matter differentiation is well preserved. No extra-axial fluid collections are identified. No hydrocephalus. No significant volume loss. There is no abnormal attenuation within the brain parenchyma. The osseous structures and soft tissues are normal. The mastoid air cells and visualized portions of the paranasal sinuses are well aerated. CT/CT head/brain wo con IMPRESSION: No acute intracranial pathology.
[2021-09-22 04:44] VITALS: BP 183/103; PULSE 65; RESP 16; O2SAT 99; BMI 27.1
--- NOTE | 2021-09-22 05:17 | ED_ITS ---
HPI - Headache General Chief Complaint: Headache Stated Complaint: High Blood Pressure Time Seen by Provider: 09/22/21 05:03 Source: patient Mode of arrival: ambulatory Limitations: no limitations History of Present Illness HPI Narrative: patient with previous history of AFib, hypertension on Eliquis was not feeling good since yesterday evening went to bed woke up at 03:00 o'clock with headache on the right side checked her blood pressure was elevated to 172/101 patient took her metoprolol 100 mg twice daily as usual last night. No nausea no vomiting no diarrhea no focal deficit , after arrival patient's blood pressure was 183/103 patient denied any chest pain or palpitation Related Data Home Medications Medication Instructions Recorded Confirmed acetaminophen 650 mg 1,300 mg PO BID 08/08/21 08/11/21 tablet,extended release (Tylenol 8 Hour) clobetasol 0.05 % topical cream 1 appl topical BID PRN Itching 08/08/21 08/11/21 ceyjmmjc-plx-[id number] acid 0.4 1 tab PO DAILY 08/08/21 08/11/21 mg-lycopene 300 mcg-lutein 250 mcg tablet (Centrum Silver) omeprazole 20 mg capsule,delayed 20 mg PO DAILY@0630 08/08/21 08/11/21 release triamcinolone acetonide 0.05 % 1 appl topical BID PRN Itching 08/08/21 08/11/21 topical ointment melatonin 3 mg tablet 6 mg PO BEDTIME PRN Sleep 08/11/21 08/11/21 Previous Rx's Medication Instructions Recorded apixaban 5 mg tablet (Eliquis) 5 mg PO BID 30 days #60 tabs 08/13/21 metoprolol tartrate 100 mg tablet 100 mg PO BID 30 days #60 tabs 08/13/21 etanercept 50 mg/mL (1 mL) 50 mg subcut QWEEK #4 mL 09/05/21 subcutaneous pen injector (Enbrel SureClick) Allergies Allergy/AdvReac Type Severity Reaction Status Date / Time ciprofloxacin [From Cipro] Allergy Intermediate Rash Verified 09/22/21 04:43 codeine Allergy Intermediate rash Verified 09/22/21 04:43 Review of Systems Review of Systems: Yes all other systems are reviewed and are negative PMFSH Past Medical History Medical History History of myocardial infarction Hypertension Long-term use of immunosuppressant medication Osteopenia after menopause Seropositive rheumatoid arthritis Family History Family History Father Heart problem Mother CHF (congestive heart failure) Social History Social History Household Members: Family Household Members Other:: and son Housing: House Are you a primary childcare center administrator to a significant other at home: No Do you presently have visiting nurse or other home services: No Alcohol intake: never Patient Tobacco Use Status: Never used Tobacco Years Smoked: quit 30-40 years ago e-Cigarette/Vaping Use: Never Used Use of substances other than those prescribed or required for medical reasons: No Advance Directives: Yes Advance Directives on File: Yes Advance Directives Date on File: 08/11/21 service: No Current occupational status: employed 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 Oriented X3. No acute distress. Eyes: PERRLA, No Nystagmus ENT: Pharynx normal. Oral Mucosa moist Neck: Normal inspection. Neck supple. CVS: Normal heart rate and rhythm. Pulses normal. Respiratory: No respiratory distress. Equal air entry bilateral, no wheezing/rales/rhonchi Abdomen: Soft and nontender. Bowel sounds are present, no mass palpable, no CVA tenderness Skin: Skin warm and dry. Normal skin color. Normal skin turgor. Extremities: No lower extremity edema. No calf tenderness Neuro: Oriented X 3. No motor deficit. No sensory deficit.No cerebellar signs , cranial nerves II-XII intact MDM - Headache MDM Narrative Medical decision making narrative: 05:20patient's acute onset of headache with no focal neurological deficit with history of AFib on Eliquis will get CT scan of the head to rule out any bleed 06:[address] negative for acute bleed patient headache is better after lis inopril 5 mg, blood pressures improved to 167/88 discharge patient home Differential Diagnosis Differential diagnosis: Likely subarachnoid hemorrhage and headache ECG Data Attestation: I personally reviewed and interpreted this ECG as follows: Interpretation: NORMAL SINUS RHYTHM HEART RATE 66 BEATS PER MINUTE POOR PROGRESSION OF R-WAVE ANTERIOR LEADS NORMAL INTERVALS NORMAL AXIS NO ACUTE ST WAVE CHANGES Discharge Plan Discharge Clinical Impression: Hypertension Patient Disposition: Home, Self-Care Instructions: Chronic Hypertension (ED) Additional Instructions: INCREASE YOUR DOSE OF LISINOPRIL TO 20 MG DAILY AND FOLLOW-UP WITH YOUR PROCEDURE MANAGER Prescriptions: No Action Enbrel SureClick 50 mg/mL (1 mL) pen injector 50 mg subcut QWEEK Qty: 4 4RF melatonin 3 mg Tablet 6 mg PO BEDTIME PRN (Reason: Sleep) Eliquis 5 mg Tablet 5 mg PO BID 30 Days Qty: 60 0RF metoprolol tartrate 100 mg tablet 100 mg PO BID 30 Days Qty: 60 0RF omeprazole 20 mg capsule,delayed release(DR/EC) 20 mg PO DAILY@0630 Centrum Silver 0.4 mg-300 mcg- 250 mcg tablet 1 tab PO DAILY acetaminophen [Tylenol 8 Hour] 650 mg tablet extended release 1,300 mg PO BID clobetasol 0.05 % cream 1 appl topical BID PRN (Reason: Itching) triamcinolone acetonide 0.05 % ointment 1 appl topical BID PRN (Reason: Itching)
--- NOTE | 2021-09-22 05:20 | ECG_ITS ---
Test Reason : AFIB Blood Pressure : / mmHG Vent. Rate : 066 BPM Atrial Rate : 066 BPM P-R Int : 154 ms QRS Dur : 084 ms QT Int : 426 ms P-R-T Axes : 051 -07 080 degrees QTc Int : 446 ms Normal sinus rhythm Septal infarct (cited on or before 11-AUG-2021) Abnormal ECG When compared with ECG of 11-AUG-2021 11:21, Sinus rhythm has replaced Atrial fibrillation Vent. rate has decreased BY 83 BPM Referred By: Scott Shepard Electronically Signed By:BRETT BENTLEY
[2021-09-22 06:00] VITALS: BP 181/91; PULSE 60; RESP 14; O2SAT 94
[2021-09-22] MEDS: lisinopriL 5 MG TABLET PO (06:00)
== END 2021-09-22 07:07 | disposition home or self-care (01) ==
PROVIDERS: Emergency Provider Internal Medicine; PCP Internal Medicine
DX: R51.9 Headache, unspecified (principal); I10 Essential (primary) hypertension; I48.91 Unspecified atrial fibrillation; M05.9 Rheumatoid arthritis with rheumatoid factor, unspecified; Z79.01 Long term (current) use of anticoagulants; Z79.899 Other long term (current) drug therapy
CPT/HCPCS: 70450; 93005; 99284

== ENCOUNTER 2022-03-18 04:56 | Emergency (ER) | payer OTHER, SELFPAY ==
--- NOTE | 2022-03-18 05:13 | ECG_ITS ---
Test Reason : HIGH BP Blood Pressure : / mmHG Vent. Rate : 058 BPM Atrial Rate : 058 BPM P-R Int : 152 ms QRS Dur : 090 ms QT Int : 444 ms P-R-T Axes : 037 -17 039 degrees QTc Int : 435 ms Sinus bradycardia Moderate voltage criteria for LVH, may be normal variant ( R in aVL , Eddie product ) Nonspecific ST abnormality Abnormal ECG When compared with ECG of 22-SEP-2021 05:43, No significant change was found Referred By: Generic ED Physician Electronically Signed By:Franco Murrell
[2022-03-18 05:16] VITALS: BP 207/97; PULSE 66; RESP 19; TEMP 36.4; O2SAT 98; BMI 27.4
[2022-03-18 05:36] LABS: Hematocrit 38.8 % (37.0-47.0); Hemoglobin 12.7 g/dl (12.0-16.0); Mean Corpuscular HGB Conc 32.7 g/dl (31.0-35.0); Mean Corpuscular Hemoglobin 31.4 pg (27.0-33.0); Mean Corpuscular Volume 95.8 fL (80.0-98.0); Mean Platelet Volume 10.6 fL (9.4-12.3); Platelet Count 183 X10*3/uL (160-400); Red Blood Count 4.05 X10*6/uL (4.20-5.50); Red Cell Distribution Width 11.9 % (11.0-16.0); White Blood Count 4.9 X10*3/uL (4.8-10.8)
[2022-03-18 05:46] LABS: COVID-19 Test Positive (Negative); IDNOW Serial# 9DB6401D
--- NOTE | 2022-03-18 05:50 | ED.GENADULT ---
HPI - General Adult General Chief complaint: General Medical Stated complaint: High Blood Pressure Time Seen by Provider: 03/18/22 05:50 Source: patient Mode of arrival: ambulatory Limitations: no limitations History of Present Illness HPI narrative: Patient with history of atrial fibrillation essential hypertension on metoprolol 100 mg twice daily and Eliquis and lisinopril 40 mg daily no nausea no vomiting no fever no chills no cough patient just had COVID last week asymptomatic at this time Related Data Home Medications Medication Instructions Recorded Confirmed acetaminophen 650 mg 1,300 mg PO BID 08/08/21 02/15/22 tablet,extended release (Tylenol 8 Hour) clobetasol 0.05 % topical cream 1 appl topical BID PRN Itching 08/08/21 02/15/22 [id number]-ddz-[id number] acid 0.4 1 tab PO DAILY 08/08/21 02/15/22 mg-lycopene 300 mcg-lutein 250 mcg tablet (Centrum Silver) omeprazole 20 mg capsule,delayed 20 mg PO DAILY@0630 08/08/21 02/15/22 release triamcinolone acetonide 0.05 % 1 appl topical BID PRN Itching 08/08/21 02/15/22 topical ointment melatonin 3 mg tablet 6 mg PO BEDTIME PRN Sleep 08/11/21 02/15/22 lisinopril 20 mg tablet 20 mg PO DAILY 02/15/22 02/15/22 triamcinolone acetonide 0.1 % topical 02/15/22 02/15/22 topical ointment Previous Rx's Medication Instructions Recorded apixaban 5 mg tablet (Eliquis) 5 mg PO BID 30 days #60 tabs 08/13/21 metoprolol tartrate 100 mg tablet 100 mg PO BID 30 days #60 tabs 08/13/21 etanercept 50 mg/mL (1 mL) 50 mg subcut QWEEK #4 mL 02/23/22 subcutaneous pen injector (Enbrel SureClick) lisinopril 20 mg tablet 20 mg PO BID #60 tabs 03/18/22 Allergies Allergy/AdvReac Type Severity Reaction Status Date / Time ciprofloxacin [From Cipro] Allergy Intermediate Rash Verified 02/15/22 09:20 codeine Allergy Intermediate rash Verified 02/15/22 09:20 Review of Systems Review of Systems: Yes all other systems are reviewed and are negative PMFSH Past Medical History Medical History History of myocardial infarction Hypertension Long-term use of immunosuppressant medication Osteopenia after menopause Seropositive rheumatoid arthritis Family History Family History Father Heart problem Mother CHF (congestive heart failure) Social History Social History Household Members: Family Household Members Other:: and son Housing: House Are you a primary home care administrator to a significant other at home: No Do you presently have visiting nurse or other home services: No Alcohol intake: never Patient Tobacco Use Status: Never used Tobacco Years Smoked: quit 30-40 years ago Smoked in Last 30 Days: No e-Cigarette/Vaping Use: Never Used Use of substances other than those prescribed or required for medical reasons: No Advance Directives: Yes Advance Directives on File: Yes Advance Directives Date on File: 08/11/21 service: No Current occupational status: employed 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 Oriented X3. No acute distress. Eyes: PERRLA, No Nystagmus ENT: Pharynx normal. Oral Mucosa moist Neck: Normal inspection. Neck supple. CVS: Normal heart rate and rhythm. Pulses normal. Respiratory: No respiratory distress. Equal air entry bilateral, no wheezing/rales/rhonchi Abdomen: Soft and nontender. Bowel sounds are present, no mass palpable, no CVA tenderness Skin: Skin warm and dry. Normal skin color. Normal skin turgor. Extremities: No lower extremity edema. No calf tenderness Neuro: Oriented X 3. No motor deficit. 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 Labs are stable normal BUN creatinine patient does have a problem with controlling blood pressure lately is on lisinopril 20 mg will increase the dose to 40 mg and call will add hydrochlorothiazide advised to follow with PCP Lab Data [facility] Lab Attestation statement: I reviewed the patient's lab results. Result Diagrams: 03/18/22 05:30 03/18/22 05:30 Labs: Lab Results 03/18/22 03/18/22 03/18/22 Range/Units 05:26 05:30 05:30 WBC 4.9 (4.8-10.8) X10*3/uL RBC 4.05 L (4.20-5.50) X10*6/uL Hgb 12.7 (12.0-16.0) g/dl Hct 38.8 (37.0-47.0) % MCV 95.8 (80.0-98.0) fL MCH 31.4 (27.0-33.0) pg MCHC 32.7 (31.0-35.0) g/dl RDW 11.9 (11.0-16.0) % Plt Count 183 D (160-400) X10*3/uL MPV 10.6 (9.4-12.3) fL Absolute Nucleated RBC 0.000 (0.0-0.012) X10*3/uL Nucleated RBC % (auto) 0.0 (0.0-0.2) /100WBC Sodium 139 (135-145) mmol/L Potassium 3.9 (3.3-5.1) mmol/L Chloride 107 (96-108) mmol/L Carbon Dioxide 25 (22-29) mmol/L Anion Gap 11 L (12-20) BUN 9 (9-16) mg/dL Creatinine 0.68 (0.5-1.4) mg/dL Estim Creat Clear Calc 77.3 Estimated GFR > 60 Random Glucose 105 (60-115) mg/dL Calcium 9.0 (8.4-10.2) mg/dL Total Bilirubin 1.5 H (0.0-1.0) mg/dL AST 30 (5-31) U/L ALT 21 (0-31) U/L Alkaline Phosphatase 69 (39-117) U/L Total Protein 7.2 (6.5-8.0) g/dL Albumin 3.8 (3.5-5.0) g/dL COVID-19 ([facility]) Positive A (Negative) COVID-19 Clin Com See Note Independent Interpretation I performed an independent interpretation of an: EKG Interpretation: Sinus bradycardia heart rate 58 beats per minute LVH no acute ST change no acute ischemia Discharge Plan Discharge Clinical Impression: Hypertension Patient Disposition: Home, Self-Care Instructions: Hypertension (ED) Additional Instructions: Increase the dose of lisinopril to 20 mg twice daily Check blood pressure should be less than 135/85 Continue rest of your medications Follow-up with your fermentation engineer/PCP Prescriptions: New lisinopril 20 mg tablet 20 mg PO BID Qty: 60 0RF No Action Enbrel SureClick 50 mg/mL (1 mL) pen injector 50 mg subcut QWEEK Qty: 4 4RF melatonin 3 mg Tablet 6 mg PO BEDTIME PRN (Reason: Sleep) Eliquis 5 mg Tablet 5 mg PO BID 30 Days Qty: 60 0RF metoprolol tartrate 100 mg tablet 100 mg PO BID 30 Days Qty: 60 0RF omeprazole 20 mg capsule,delayed release(DR/EC) 20 mg PO DAILY@0630 Centrum Silver 0.4 mg-300 mcg- 250 mcg tablet 1 tab PO DAILY acetaminophen [Tylenol 8 Hour] 650 mg tablet extended release 1,300 mg PO BID clobetasol 0.05 % cream 1 appl topical BID PRN (Reason: Itching) triamcinolone acetonide 0.05 % ointment 1 appl topical BID PRN (Reason: Itching) lisinopril 20 mg tablet 20 mg PO DAILY triamcinolone acetonide 0.1 % ointment topical
[2022-03-18 05:53] LABS: Alanine Aminotransferase 21 U/L (0-31); Albumin Level 3.8 g/dL (3.5-5.0); Alkaline Phosphatase 69 U/L (39-117); Anion Gap 11 (12-20); Aspartate Amino Transferase 30 U/L (5-31); Bilirubin Total 1.5 mg/dL (0.0-1.0); Blood Urea Nitrogen 9 mg/dL (9-16); Carbon Dioxide 25 mmol/L (22-29); Chloride 107 mmol/L (96-108); Creatinine Clr Calc Pharmacy 77.3; Estimated Glomerular Filt Rate > 60; Glucose Random 105 mg/dL (60-115); Potassium 3.9 mmol/L (3.3-5.1); Sodium 139 mmol/L (135-145); Total Protein 7.2 g/dL (6.5-8.0)
[2022-03-18 06:00] VITALS: BP 175/101; PULSE 65; RESP 18; O2SAT 99
--- NOTE | 2022-03-18 06:02 | PC.NURSE ---
PT A&Ox4, reports no pain. Reports headache and nausea and high blood pressure. Reports being med compliant. States she was covid + Sunday.
[2022-03-18 08:42] VITALS: BP 169/88; PULSE 69; RESP 18; O2SAT 98
== END 2022-03-18 08:50 | disposition home or self-care (01) ==
PROVIDERS: Emergency Provider Internal Medicine; PCP Internal Medicine
DX: I10 Essential (primary) hypertension (principal); I48.91 Unspecified atrial fibrillation; Z79.899 Other long term (current) drug therapy; Z79.01 Long term (current) use of anticoagulants
CPT/HCPCS: 36415; 70450; 80053; 85027; 87635; 93005; 96374; 99284; 99285

== ENCOUNTER 2022-03-19 00:19 | Emergency (ER) | payer OTHER, SELFPAY ==
[2022-03-19 00:29] VITALS: BP 164/94; PULSE 61; RESP 16; TEMP 36.4; O2SAT 97; BMI 27.6
--- NOTE | 2022-03-19 00:41 | ECG_ITS ---
Test Reason : htn Blood Pressure : / mmHG Vent. Rate : 058 BPM Atrial Rate : 058 BPM P-R Int : 166 ms QRS Dur : 088 ms QT Int : 440 ms P-R-T Axes : 030 -15 051 degrees QTc Int : 431 ms Sinus bradycardia Moderate voltage criteria for LVH, may be normal variant ( R in aVL , Eddie product ) Nonspecific ST abnormality Abnormal ECG When compared with ECG of 18-MAR-2022 05:17, No significant change was found Referred By: Generic ED Physician Electronically Signed By:Franco Murrell
--- NOTE | 2022-03-19 00:53 | ED.GENADULT ---
HPI - General Adult General Chief complaint: General Medical Stated complaint: hypertension Time Seen by Provider: 03/19/22 00:46 Source: patient Mode of arrival: ambulatory Limitations: no limitations History of Present Illness HPI narrative: Patient with history of hypertension recently had COVID confirm from home test on 03/12 was seen here last night for headache and hypertension dose of lisinopril increased from from 20to 40 mg patient does take Eliquis headache is gradual onset going on for 1 week since had a COVID no nausea no vomiting pain just some chills and says that urinating a lot. No pain anywhere else cough is getting better no fever no chills Related Data Home Medications Medication Instructions Recorded Confirmed acetaminophen 650 mg 1,300 mg PO BID 08/08/21 02/15/22 tablet,extended release (Tylenol 8 Hour) clobetasol 0.05 % topical cream 1 appl topical BID PRN Itching 08/08/21 02/15/22 [id number]-lkg-[id number] acid 0.4 1 tab PO DAILY 08/08/21 02/15/22 mg-lycopene 300 mcg-lutein 250 mcg tablet (Centrum Silver) omeprazole 20 mg capsule,delayed 20 mg PO DAILY@0630 08/08/21 02/15/22 release triamcinolone acetonide 0.05 % 1 appl topical BID PRN Itching 08/08/21 02/15/22 topical ointment melatonin 3 mg tablet 6 mg PO BEDTIME PRN Sleep 08/11/21 02/15/22 lisinopril 20 mg tablet 20 mg PO DAILY 02/15/22 02/15/22 triamcinolone acetonide 0.1 % topical 02/15/22 02/15/22 topical ointment Previous Rx's Medication Instructions Recorded apixaban 5 mg tablet (Eliquis) 5 mg PO BID 30 days #60 tabs 08/13/21 metoprolol tartrate 100 mg tablet 100 mg PO BID 30 days #60 tabs 08/13/21 etanercept 50 mg/mL (1 mL) 50 mg subcut QWEEK #4 mL 02/23/22 subcutaneous pen injector (Enbrel Baltazarick) lisinopril 20 mg tablet 20 mg PO BID #60 tabs 03/18/22 hydrochlorothiazide 25 mg tablet 25 mg PO QAM #30 tabs 03/19/22 Allergies Allergy/AdvReac Type Severity Reaction Status Date / Time ciprofloxacin [From Cipro] Allergy Intermediate Rash Verified 02/15/22 09:20 codeine Allergy Intermediate rash Verified 02/15/22 09:20 Review of Systems Review of Systems: Yes all other systems are reviewed and are negative [facility] Past Medical History Medical History History of myocardial infarction Hypertension Long-term use of immunosuppressant medication Osteopenia after menopause Seropositive rheumatoid arthritis Family History Family History Father Heart problem Mother CHF (congestive heart failure) Social History Social History Household Members: Family Household Members Other:: and son Housing: House Are you a primary post acute care nurse practitioner to a significant other at home: No Do you presently have visiting nurse or other home services: No Alcohol intake: never Patient Tobacco Use Status: Never used Tobacco Years Smoked: quit 30-40 years ago e-Cigarette/Vaping Use: Never Used Advance Directives: Yes Advance Directives on File: Yes Advance Directives Date on File: 08/11/21 service: No Current occupational status: employed 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 Oriented X3. No acute distress. Eyes: PERRLA, No Nystagmus ENT: Pharynx normal. Oral Mucosa moist Neck: Normal inspection. Neck supple. CVS: Normal heart rate and rhythm. Pulses normal. Respiratory: No respiratory distress. Equal air entry bilateral, no wheezing/rales/rhonchi Abdomen: Soft and nontender. Bowel sounds are present, no mass palpable, no CVA tenderness Skin: Skin warm and dry. Normal skin color. Normal skin turgor. Extremities: No lower extremity edema. No calf tenderness Neuro: Oriented X 3. No motor deficit. No sensory deficit.No cerebellar signs , cranial nerves II-XII intact Medical Decision Making Medical Decision Making MDM Narrative: Patient with hypertension recent COVID blood pressure 160/94 only no warning signs of severe hypertension yesterday patient had a CT scan of the head which was negative will add blood pressure a gym hydrochlorothiazide. Will check urine and chest x-ray as patient has some chills will give tramadol for headache. Plan to discharge patient home if UA and chest x-ray negative Dr. Donnelly will check the results Discharge Plan Discharge Clinical Impression: Essential hypertension Patient Disposition: Home, Self-Care Instructions: Chronic Hypertension (ED) Additional Instructions: Continue blood pressure medication as prescribed 20 mg of lisinopril twice daily add hydrochlorothiazide 25 mg in the morning for better blood pressure control Follow-up with your PCP Prescriptions: New hydrochlorothiazide 25 mg tablet 25 mg PO QAM Qty: 30 0RF No Action Enbrel SureClick 50 mg/mL (1 mL) pen injector 50 mg subcut QWEEK Qty: 4 4RF lisinopril 20 mg tablet 20 mg PO BID Qty: 60 0RF melatonin 3 mg Tablet 6 mg PO BEDTIME PRN (Reason: Sleep) Eliquis 5 mg Tablet 5 mg PO BID 30 Days Qty: 60 0RF metoprolol tartrate 100 mg tablet 100 mg PO BID 30 Days Qty: 60 0RF omeprazole 20 mg capsule,delayed release(DR/EC) 20 mg PO DAILY@0630 Centrum Silver 0.4 mg-300 mcg- 250 mcg tablet 1 tab PO DAILY acetaminophen [Tylenol 8 Hour] 650 mg tablet extended release 1,300 mg PO BID clobetasol 0.05 % cream 1 appl topical BID PRN (Reason: Itching) triamcinolone acetonide 0.05 % ointment 1 appl topical BID PRN (Reason: Itching) lisinopril 20 mg tablet 20 mg PO DAILY triamcinolone acetonide 0.1 % ointment topical
--- NOTE | 2022-03-19 01:51 | PC.NURSE ---
Pt declines Tramadol at this time. Reports headache has improved.
[2022-03-19 01:57] VITALS: BP 175/94; PULSE 60; O2SAT 98
[2022-03-19 02:00] LABS: Appearance Urine Clear; Color Urine Yellow; Glucose Urine UA Negative (Negative); Leukocyte Esterase Urine Moderate (2+) (Negative); Nitrite Urine Negative (Negative); UMIC TRIGGER UACC YES; Urine Blood Moderate (2+) (Negative); Urine Ketones Negative (Negative); Urine Protein Negative (Neg-Trace)
[2022-03-19 02:08] LABS: Bacteria Urine None Seen (None Seen); Hyaline Casts Urine 0-2 /LPF (0-2); Squamous Epithelial Cell Urine 0-2 /HPF (0-2); WBC Urine 0-5 /HPF (0-5)
--- NOTE | 2022-03-19 02:24 | PC.NURSE ---
Discharge instructions reviewed with pt. Pt verbalizes understanding.
== END 2022-03-19 02:25 | disposition home or self-care (01) ==
PROVIDERS: Emergency Provider Internal Medicine; PCP Internal Medicine
DX: I10 Essential (primary) hypertension (principal); R51.9 Headache, unspecified; R07.89 Other chest pain; Z79.01 Long term (current) use of anticoagulants; Z79.899 Other long term (current) drug therapy
CPT/HCPCS: 71045; 81001; 93005; 99284

== ENCOUNTER 2022-07-24 11:23 | Outpatient (REF) | payer OTHER, SELFPAY ==
--- NOTE | ~2022-07-24 | XR_ITS ---
EXAMINATION: XR foot RT min 3V, XR foot LT min 3V CLINICAL INFORMATION: Rheumatoid arthritis COMPARISON: None TECHNIQUE: 3 views of the bilateral feet XR/XR foot LT min 3V FINDINGS/IMPRESSION: RIGHT FOOT: No fracture or dislocation. Mild degenerative changes of the first metatarsophalangeal joint and the proximal and distal interphalangeal joints. Mild degenerative changes of the dorsal midfoot with degenerative spurring. Plantar calcaneal enthesopathy. Calcifications along the course of the plantar fascia. Periarticular cortical erosion along the head of the fifth metatarsal, which can be seen in the setting of erosive arthropathy such as rheumatoid arthritis. No joint effusion. Soft tissues are unremarkable. LEFT FOOT: No fracture or dislocation. Mild degenerative changes of the first metatarsophalangeal joint and the proximal and distal interphalangeal joints. Advanced degenerative changes of the dorsal midfoot with loss of talonavicular joint space and degenerative spurring. Plantar calcaneal spurring with calcification along the course of the plantar fascia. No cortical erosion. Small tibiotalar joint effusion. Soft tissues are unremarkable. IMPRESSION: RIGHT FOOT: Periarticular cortical erosion along the head of the fifth metatarsal which may be seen in the setting of erosive arthropathy such as rheumatoid arthritis. Mild degenerative changes of the left foot. LEFT FOOT: Degenerative changes of the foot worst involving the talonavicular joint where it is advanced with complete loss of joint space. Small tibiotalar joint effusion. No cortical erosion.
--- NOTE | ~2022-07-24 | XR_ITS ---
EXAMINATION: XR foot RT min 3V, XR foot LT min 3V CLINICAL INFORMATION: Rheumatoid arthritis COMPARISON: None TECHNIQUE: 3 views of the bilateral feet XR/XR foot RT min 3V FINDINGS/IMPRESSION: RIGHT FOOT: No fracture or dislocation. Mild degenerative changes of the first metatarsophalangeal joint and the proximal and distal interphalangeal joints. Mild degenerative changes of the dorsal midfoot with degenerative spurring. Plantar calcaneal enthesopathy. Calcifications along the course of the plantar fascia. Periarticular cortical erosion along the head of the fifth metatarsal, which can be seen in the setting of erosive arthropathy such as rheumatoid arthritis. No joint effusion. Soft tissues are unremarkable. LEFT FOOT: No fracture or dislocation. Mild degenerative changes of the first metatarsophalangeal joint and the proximal and distal interphalangeal joints. Advanced degenerative changes of the dorsal midfoot with loss of talonavicular joint space and degenerative spurring. Plantar calcaneal spurring with calcification along the course of the plantar fascia. No cortical erosion. Small tibiotalar joint effusion. Soft tissues are unremarkable. IMPRESSION: RIGHT FOOT: Periarticular cortical erosion along the head of the fifth metatarsal which may be seen in the setting of erosive arthropathy such as rheumatoid arthritis. Mild degenerative changes of the left foot. LEFT FOOT: Degenerative changes of the foot worst involving the talonavicular joint where it is advanced with complete loss of joint space. Small tibiotalar joint effusion. No cortical erosion.
[2022-07-24 12:58] LABS: MANUAL DIFF FLAG NO
[2022-07-24 13:11] LABS: Basophils Percent Auto 0.4 % (0-2); Eosinophils Absolute Auto 0.2 X10*3/uL (0.0-0.4); Eosinophils Percent Auto 2.3 % (0-4); Hematocrit 38.3 % (37.0-47.0); Hemoglobin 12.4 g/dl (12.0-16.0); Imm Gran Abs Auto 0.02 X10*3/uL (0.00-0.03); Imm Gran Pct Auto 0.3 % (0.0-0.4); Lymphocytes Absolute Auto 3.1 X10*3/uL (1.2-4.9); Lymphocytes Percent Auto 42.8 % (20-40); Mean Corpuscular HGB Conc 32.4 g/dl (31.0-35.0); Mean Corpuscular Hemoglobin 31.2 pg (27.0-33.0); Mean Corpuscular Volume 96.5 fL (80.0-98.0); Mean Platelet Volume 10.1 fL (9.4-12.3); Monocytes Absolute Auto 0.6 X10*3/uL (0.1-1.2); Monocytes Percent Auto 8.3 % (2-11); Neutrophils Absolute Auto 3.3 x10*3/uL (2.0-8.3); Neutrophils Percent Auto 45.9 % (45-73); Platelet Count 264 X10*3/uL (160-400); Red Blood Count 3.97 X10*6/uL (4.20-5.50); Red Cell Distribution Width 12.4 % (11.0-16.0); White Blood Count 7.3 X10*3/uL (4.8-10.8)
[2022-07-24 13:51] LABS: C Reactive Protein 0.27 mg/dL (< or = 0.50)
[2022-07-24 13:53] LABS: Erythrocyte Sedimentation Rate 13 MM/HR (0-20)
[2022-07-27 02:03] LABS: TS Negative Control Passed; TS Panel A 1; TS Panel B 3; TS Positive Control Passed; TSpotTB Negative (Negative)
[2022-07-29 14:19] LABS: Vitamin D 25-OH, D2 <4 ng/mL; Vitamin D 25-OH, D3 46 ng/mL; Vitamin D 25-OH, Total 46 ng/mL (30-100)
== END 2022-07-24 11:24 | disposition home or self-care (01) ==
LOC: HO.XRAY 11:23
PROVIDERS: Visit Provider Internal Medicine Rheumatology
DX: M05.9 Rheumatoid arthritis with rheumatoid factor, unspecified (principal); M85.80 Other specified disorders of bone density and structure, unspecified site; Z78.0 Asymptomatic menopausal state; Z79.899 Other long term (current) drug therapy
CPT/HCPCS: 36415; 73630; 82306; 85025; 85652; 86140; 86481

== ENCOUNTER → 2022-09-25 13:52 | Outpatient (BNVA) | payer OTHER, SELFPAY | PROVIDERS: PCP Internal Medicine; Visit Provider Internal Medicine Rheumatology ==

== ENCOUNTER 2022-09-26 12:23 | Emergency (ER) | payer OTHER, SELFPAY ==
[2022-09-26 12:33] VITALS: BP 132/75; PULSE 67; RESP 16; TEMP 36.6; O2SAT 100; BMI 29.9
--- NOTE | 2022-09-26 12:35 | ED.ARRPALP ---
HPI - Arrhythmia/Palpitations General Chief Complaint: Arrhythmia/Palpitations Stated Complaint: Irregular heartbeat Time Seen by Provider: 09/26/22 13:03 Related Data Home Medications Medication Instructions Recorded Confirmed acetaminophen 650 mg 1,300 mg PO BID 08/08/21 02/15/22 tablet,extended release (Tylenol 8 Hour) clobetasol 0.05 % topical cream 1 appl topical BID PRN Itching 08/08/21 02/15/22 evmdghck-glo-[id number] acid 0.4 1 tab PO DAILY 08/08/21 02/15/22 mg-lycopene 300 mcg-lutein 250 mcg tablet (Centrum Silver) omeprazole 20 mg capsule,delayed 20 mg PO DAILY@0630 08/08/21 02/15/22 release triamcinolone acetonide 0.05 % 1 appl topical BID PRN Itching 08/08/21 02/15/22 topical ointment melatonin 3 mg tablet 6 mg PO BEDTIME PRN Sleep 08/11/21 02/15/22 triamcinolone acetonide 0.1 % topical 02/15/22 02/15/22 topical ointment amlodipine 5 mg tablet 5 mg PO DAILY 09/25/22 aspirin 81 mg tablet,delayed 81 mg PO DAILY 09/25/22 release gabapentin 300 mg capsule 300 mg PO DAILY 09/25/22 Previous Rx's Medication Instructions Recorded metoprolol tartrate 100 mg tablet 100 mg PO BID 30 days #60 tabs 08/13/21 lisinopril 20 mg tablet 20 mg PO BID #60 tabs 03/18/22 hydrochlorothiazide 25 mg tablet 25 mg PO QAM #30 tabs 03/19/22 etanercept 50 mg/mL (1 mL) 50 mg subcut QWEEK #4 mL 06/18/22 subcutaneous pen injector (Enbrel SureClick) Allergies Allergy/AdvReac Type Severity Reaction Status Date / Time ciprofloxacin [From Cipro] Allergy Intermediate Rash Verified 09/26/22 12:32 codeine Allergy Intermediate rash Verified 09/26/22 12:32 [facility] Past Medical History Medical History History of myocardial infarction Hypertension Long-term use of immunosuppressant medication Osteopenia after menopause Seropositive rheumatoid arthritis Family History Family History Father Heart problem Mother CHF (congestive heart failure) Social History Social History Household Members: Family Household Members Other:: and son Housing: House Are you a primary career transition specialist to a significant other at home: No Do you presently have visiting nurse or other home services: No Alcohol intake: never Patient Tobacco Use Status: Never used Tobacco Years Smoked: quit 30-40 years ago Smoked in Last 30 Days: No e-Cigarette/Vaping Use: Never Used Use of substances other than those prescribed or required for medical reasons: No Advance Directives: Yes Advance Directives on File: Yes Advance Directives Date on File: 08/11/21 service: No Current occupational status: employed 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 States she is not always in A.fib. Takes Metoprolol. Denies CP/SOB EKG A.fib w/controlled rate. EKG, labs, CXR ordered Full HPI, ROS and PE to be performed by primary ED provider. Medical Decision Making Lab Data 09/26/22 12:45 09/26/22 12:45 Labs: Lab Results 09/26/22 09/26/22 09/26/22 Range/Units 12:45 12:45 12:45 WBC 7.2 (4.8-10.8) X10*3/uL RBC 4.10 L (4.20-5.50) X10*6/uL Hgb 12.8 (12.0-16.0) g/dl Hct 39.5 (37.0-47.0) % MCV 96.3 (80.0-98.0) fL MCH 31.2 (27.0-33.0) pg MCHC 32.4 (31.0-35.0) g/dl RDW 12.4 (11.0-16.0) % Plt Count 286 (160-400) X10*3/uL MPV 9.7 (9.4-12.3) fL Immature Gran % (Auto) 0.3 (0.0-0.4) % Neut % (Auto) 40.4 L (45-73) % Lymph % (Auto) 45.5 H (20-40) % [place] % (Auto) 10.0 (2-11) % Eos % (Auto) 2.8 (0-4) % Baso % (Auto) 1.0 (0-2) % Lymph # (Auto) 3.3 (1.2-4.9) X10*3/uL [place] # (Auto) 0.7 (0.1-1.2) X10*3/uL Eos # (Auto) 0.2 (0.0-0.4) X10*3/uL Baso # (Auto) 0.1 (0.0-0.2) X10*3/uL Abs Immat Gran (auto) 0.02 (0.00-0.03) X10*3/uL Absolute Neuts (auto) 2.9 (2.0-8.3) x10*3/uL Absolute Nucleated RBC 0.000 (0.0-0.012) X10*3/uL Nucleated RBC % (auto) 0.0 (0.0-0.2) /100WBC PT (10.0-13.1) SEC INR (0.9-1.1) Sodium 140 (135-145) mmol/L Potassium 4.4 (3.3-5.1) mmol/L Chloride 108 (96-108) mmol/L Carbon Dioxide 24 (22-29) mmol/L Anion Gap 12 (12-20) BUN 15 (9-16) mg/dL Creatinine 0.76 (0.5-1.4) mg/dL Estim Creat Clear Calc 71.0 Estimated GFR > 60 Random Glucose 89 (60-115) mg/dL Calcium 9.7 D (8.4-10.2) mg/dL Magnesium 1.9 (1.6-2.6) mg/dL Total Bilirubin 1.4 H (0.0-1.0) mg/dL Direct Bilirubin 0.4 (0.0-0.5) mg/dL AST 22 (5-31) U/L ALT 12 (0-31) U/L Alkaline Phosphatase 92 (39-117) U/L Troponin I High Sens 2.9 (<3.5-17.0) ng/L B-Natriuretic Peptide (<100) pg/mL Total Protein 7.5 (6.5-8.0) g/dL Albumin 3.8 (3.5-5.0) g/dL TSH (0.32-4.0) uIU/mL 09/26/22 09/26/22 09/26/22 Range/Units 12:45 12:45 14:08 WBC (4.8-10.8) X10*3/uL RBC (4.20-5.50) X10*6/uL Hgb (12.0-16.0) g/dl Hct (37.0-47.0) % MCV (80.0-98.0) fL MCH (27.0-33.0) pg MCHC (31.0-35.0) g/dl RDW (11.0-16.0) % Plt Count (160-400) X10*3/uL MPV (9.4-12.3) fL Immature Gran % (Auto) (0.0-0.4) % Neut % (Auto) (45-73) % Lymph % (Auto) (20-40) % [place] % (Auto) (2-11) % Eos % (Auto) (0-4) % Baso % (Auto) (0-2) % Lymph # (Auto) (1.2-4.9) X10*3/uL [place] # (Auto) (0.1-1.2) X10*3/uL Eos # (Auto) (0.0-0.4) X10*3/uL Baso # (Auto) (0.0-0.2) X10*3/uL Abs Immat Gran (auto) (0.00-0.03) X10*3/uL Absolute Neuts (auto) (2.0-8.3) x10*3/uL Absolute Nucleated RBC (0.0-0.012) X10*3/uL Nucleated RBC % (auto) (0.0-0.2) /100WBC PT 11.8 (10.0-13.1) SEC INR 1.0 (0.9-1.1) Sodium (135-145) mmol/L Potassium (3.3-5.1) mmol/L Chloride (96-108) mmol/L Carbon Dioxide (22-29) mmol/L Anion Gap (12-20) BUN (9-16) mg/dL Creatinine (0.5-1.4) mg/dL Estim Creat Clear Calc Estimated GFR Random Glucose (60-115) mg/dL Calcium (8.4-10.2) mg/dL Magnesium (1.6-2.6) mg/dL Total Bilirubin (0.0-1.0) mg/dL Direct Bilirubin (0.0-0.5) mg/dL AST (5-31) U/L ALT (0-31) U/L Alkaline Phosphatase (39-117) U/L Troponin I High Sens < 2.7 (<3.5-17.0) ng/L B-Natriuretic Peptide 801 H (<100) pg/mL Total Protein (6.5-8.0) g/dL Albumin (3.5-5.0) g/dL TSH (0.32-4.0) uIU/mL 09/26/22 Range/Units 14:08 WBC (4.8-10.8) X10*3/uL RBC (4.20-5.50) X10*6/uL Hgb (12.0-16.0) g/dl Hct (37.0-47.0) % MCV (80.0-98.0) fL MCH (27.0-33.0) pg MCHC (31.0-35.0) g/dl RDW (11.0-16.0) % Plt Count (160-400) X10*3/uL MPV (9.4-12.3) fL Immature Gran % (Auto) (0.0-0.4) % Neut % (Auto) (45-73) % Lymph % (Auto) (20-40) % [place] % (Auto) (2-11) % Eos % (Auto) (0-4) % Baso % (Auto) (0-2) % Lymph # (Auto) (1.2-4.9) X10*3/uL [place] # (Auto) (0.1-1.2) X10*3/uL Eos # (Auto) (0.0-0.4) X10*3/uL Baso # (Auto) (0.0-0.2) X10*3/uL Abs Immat Gran (auto) (0.00-0.03) X10*3/uL Absolute Neuts (auto) (2.0-8.3) x10*3/uL Absolute Nucleated RBC (0.0-0.012) X10*3/uL Nucleated RBC % (auto) (0.0-0.2) /100WBC PT (10.0-13.1) SEC INR (0.9-1.1) Sodium (135-145) mmol/L Potassium (3.3-5.1) mmol/L Chloride (96-108) mmol/L Carbon Dioxide (22-29) mmol/L Anion Gap (12-20) BUN (9-16) mg/dL Creatinine (0.5-1.4) mg/dL Estim Creat Clear Calc Estimated GFR Random Glucose (60-115) mg/dL Calcium (8.4-10.2) mg/dL Magnesium (1.6-2.6) mg/dL Total Bilirubin (0.0-1.0) mg/dL Direct Bilirubin (0.0-0.5) mg/dL AST (5-31) U/L ALT (0-31) U/L Alkaline Phosphatase (39-117) U/L Troponin I High Sens (<3.5-17.0) ng/L B-Natriuretic Peptide (<100) pg/mL Total Protein (6.5-8.0) g/dL Albumin (3.5-5.0) g/dL TSH 1.13 (0.32-4.0) uIU/mL Discharge Plan Discharge Clinical Impression: Atrial fibrillation Patient Disposition: Home, Self-Care Instructions: A-fib (Atrial Fibrillation) (DC) Prescriptions: No Action Enbrel SureClick 50 mg/mL (1 mL) pen injector 50 mg subcut QWEEK Qty: 4 5RF lisinopril 20 mg tablet 20 mg PO BID Qty: 60 0RF hydrochlorothiazide 25 mg tablet 25 mg PO QAM Qty: 30 0RF melatonin 3 mg Tablet 6 mg PO BEDTIME PRN (Reason: Sleep) metoprolol tartrate 100 mg tablet 100 mg PO BID 30 Days Qty: 60 0RF omeprazole 20 mg capsule,delayed release(DR/EC) 20 mg PO DAILY@0630 Centrum Silver 0.4 mg-300 mcg- 250 mcg tablet 1 tab PO DAILY acetaminophen [Tylenol 8 Hour] 650 mg tablet extended release 1,300 mg PO BID clobetasol 0.05 % cream 1 appl topical BID PRN (Reason: Itching) triamcinolone acetonide 0.05 % ointment 1 appl topical BID PRN (Reason: Itching) triamcinolone acetonide 0.1 % ointment topical aspirin 81 mg tablet,delayed release (DR/EC) 81 mg PO DAILY gabapentin 300 mg capsule 300 mg PO DAILY amlodipine 5 mg tablet 5 mg PO DAILY Referrals: Jm Blue MD [Primary Care Provider] - 09/28/22 Interventions: ED Discharge Assessment Last Done: 09/26/22 15:42 Discharge Date/Time: 09/26/22 15:42
[2022-09-26 13:14] VITALS: PULSE 75
--- NOTE | 2022-09-26 14:03 | ED.ARRPALP ---
HPI - Arrhythmia/Palpitations General Chief Complaint: Arrhythmia/Palpitations Stated Complaint: Irregular heartbeat Time Seen by Provider: 09/26/22 13:03 History of Present Illness HPI narrative: Patient is a 67-year-old female history of atrial fibrillation currently not on anticoagulation patient was on anticoagulation in the past. Was taken off the med try her online advertising manager. Patient has a history of hypertension as well. No history of congestive heart failure. He was cardioverted last year. He denies any fever chills. No chest pain. No diaphoresis feels weak similar to when she had the atrial fibrillation. The symptoms been ongoing for about 4 days. Denies any leg swelling. Denies any nausea vomiting. Denies any thyroid issues in the past. No sleeping issue. Feels very weak. History of rheumatoid arthritis. Related Data Home Medications Medication Instructions Recorded Confirmed acetaminophen 650 mg 1,300 mg PO BID 08/08/21 02/15/22 tablet,extended release (Tylenol 8 Hour) clobetasol 0.05 % topical cream 1 appl topical BID PRN Itching 08/08/21 02/15/22 fftncldo-uaq-eiukr acid 0.4 1 tab PO DAILY 08/08/21 02/15/22 mg-lycopene 300 mcg-lutein 250 mcg tablet (Centrum Silver) omeprazole 20 mg capsule,delayed 20 mg PO DAILY@0630 08/08/21 02/15/22 release triamcinolone acetonide 0.05 % 1 appl topical BID PRN Itching 08/08/21 02/15/22 topical ointment melatonin 3 mg tablet 6 mg PO BEDTIME PRN Sleep 08/11/21 02/15/22 triamcinolone acetonide 0.1 % topical 02/15/22 02/15/22 topical ointment amlodipine 5 mg tablet 5 mg PO DAILY 09/25/22 aspirin 81 mg tablet,delayed 81 mg PO DAILY 09/25/22 release gabapentin 300 mg capsule 300 mg PO DAILY 09/25/22 Previous Rx's Medication Instructions Recorded metoprolol tartrate 100 mg tablet 100 mg PO BID 30 days #60 tabs 08/13/21 lisinopril 20 mg tablet 20 mg PO BID #60 tabs 03/18/22 hydrochlorothiazide 25 mg tablet 25 mg PO QAM #30 tabs 03/19/22 etanercept 50 mg/mL (1 mL) 50 mg subcut QWEEK #4 mL 06/18/22 subcutaneous pen injector (Enbrel SureClick) Allergies Allergy/AdvReac Type Severity Reaction Status Date / Time ciprofloxacin [From Cipro] Allergy Intermediate Rash Verified 09/26/22 12:32 codeine Allergy Intermediate rash Verified 09/26/22 12:32 Review of Systems Review of Systems: Positive palpitation positive weakness Yes all other systems are reviewed and are negative [facility] Past Medical History Attestation statement: The following information was validated with the patient. Medical History History of myocardial infarction Hypertension Long-term use of immunosuppressant medication Osteopenia after menopause Seropositive rheumatoid arthritis Family History Family History Father Heart problem Mother CHF (congestive heart failure) Social History Social History Household Members: Family Household Members Other:: and son Housing: House Are you a primary child day care teacher to a significant other at home: No Do you presently have visiting nurse or other home services: No Alcohol intake: never Patient Tobacco Use Status: Never used Tobacco Years Smoked: quit 30-40 years ago Smoked in Last 30 Days: No e-Cigarette/Vaping Use: Never Used Use of substances other than those prescribed or required for medical reasons: No Advance Directives: Yes Advance Directives on File: Yes Advance Directives Date on File: 08/11/21 service: No Current occupational status: employed 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 Oriented X3. No acute distress. Eyes: Pupils equal, round and reactive to light. ENT: Pharynx normal. Neck: Normal inspection. Neck supple. No lymph nodes noted. No crepitus CVS: Irregularly irregular Respiratory: No respiratory distress. Breath sounds normal. No Wheezing. No rales Abdomen: Soft and nontender. No rigidity. No distention. good BS x4 Skin: Skin warm and dry. Normal skin color. Normal skin turgor. Extremities: No lower extremity edema. Neurovascular intact to all extremities. No Lacerations. No Rash Neuro: Oriented X 3. No motor deficit. No sensory deficit. Moving all extermities. No slurred speech Medical Decision Making Medical Decision Making [facility] Narrative: Positive history of atrial fibrillation. My interpretation of patient's EKG shows an atrial fibrillation. Rate is controlled. His troponin is negative. TSH is normal. There is no evidence of hyper or hypothyroid. Patient electrolytes are unremarkable. She is not on anticoagulations. She does have a history of hypertension. Discussed with patient she was on blood thinner her at 1 point, it was stopped by her online advertising manager. Will have patient closely follow-up with her online advertising manager on an outpatient basis. Her chest x-ray was negative for any acute evidence of pneumonia. There is no acute evidence of congestive heart failure. She is to be discharged home. In stable condition. Differential Diagnosis Differential Diagnoses: The differential diagnosis associated with the presentation includes Atrial fibrillation Lab Data [facility] Lab Attestation statement: I reviewed the patient's lab results. 09/26/22 12:45 09/26/22 12:45 Labs: Lab Results 09/26/22 09/26/22 09/26/22 Range/Units 12:45 12:45 12:45 WBC 7.2 (4.8-10.8) X10*3/uL RBC 4.10 L (4.20-5.50) X10*6/uL Hgb 12.8 (12.0-16.0) g/dl Hct 39.5 (37.0-47.0) % MCV 96.3 (80.0-98.0) fL MCH 31.2 (27.0-33.0) pg MCHC 32.4 (31.0-35.0) g/dl RDW 12.4 (11.0-16.0) % Plt Count 286 (160-400) X10*3/uL MPV 9.7 (9.4-12.3) fL Immature Gran % (Auto) 0.3 (0.0-0.4) % Neut % (Auto) 40.4 L (45-73) % Lymph % (Auto) 45.5 H (20-40) % [place] % (Auto) 10.0 (2-11) % Eos % (Auto) 2.8 (0-4) % Baso % (Auto) 1.0 (0-2) % Lymph # (Auto) 3.3 (1.2-4.9) X10*3/uL [place] # (Auto) 0.7 (0.1-1.2) X10*3/uL Eos # (Auto) 0.2 (0.0-0.4) X10*3/uL Baso # (Auto) 0.1 (0.0-0.2) X10*3/uL Abs Immat Gran (auto) 0.02 (0.00-0.03) X10*3/uL Absolute Neuts (auto) 2.9 (2.0-8.3) x10*3/uL Absolute Nucleated RBC 0.000 (0.0-0.012) X10*3/uL Nucleated RBC % (auto) 0.0 (0.0-0.2) /100WBC PT (10.0-13.1) SEC INR (0.9-1.1) Sodium 140 (135-145) mmol/L Potassium 4.4 (3.3-5.1) mmol/L Chloride 108 (96-108) mmol/L Carbon Dioxide 24 (22-29) mmol/L Anion Gap 12 (12-20) BUN 15 (9-16) mg/dL Creatinine 0.76 (0.5-1.4) mg/dL Estim Creat Clear Calc 71.0 Estimated GFR > 60 Random Glucose 89 (60-115) mg/dL Calcium 9.7 D (8.4-10.2) mg/dL Magnesium 1.9 (1.6-2.6) mg/dL Total Bilirubin 1.4 H (0.0-1.0) mg/dL Direct Bilirubin 0.4 (0.0-0.5) mg/dL AST 22 (5-31) U/L ALT 12 (0-31) U/L Alkaline Phosphatase 92 (39-117) U/L Troponin I High Sens 2.9 (<3.5-17.0) ng/L B-Natriuretic Peptide (<100) pg/mL Total Protein 7.5 (6.5-8.0) g/dL Albumin 3.8 (3.5-5.0) g/dL TSH (0.32-4.0) uIU/mL 09/26/22 09/26/22 09/26/22 Range/Units 12:45 12:45 14:08 WBC (4.8-10.8) X10*3/uL RBC (4.20-5.50) X10*6/uL Hgb (12.0-16.0) g/dl Hct (37.0-47.0) % MCV (80.0-98.0) fL MCH (27.0-33.0) pg MCHC (31.0-35.0) g/dl RDW (11.0-16.0) % Plt Count (160-400) X10*3/uL MPV (9.4-12.3) fL Immature Gran % (Auto) (0.0-0.4) % Neut % (Auto) (45-73) % Lymph % (Auto) (20-40) % [place] % (Auto) (2-11) % Eos % (Auto) (0-4) % Baso % (Auto) (0-2) % Lymph # (Auto) (1.2-4.9) X10*3/uL [place] # (Auto) (0.1-1.2) X10*3/uL Eos # (Auto) (0.0-0.4) X10*3/uL Baso # (Auto) (0.0-0.2) X10*3/uL Abs Immat Gran (auto) (0.00-0.03) X10*3/uL Absolute Neuts (auto) (2.0-8.3) x10*3/uL Absolute Nucleated RBC (0.0-0.012) X10*3/uL Nucleated RBC % (auto) (0.0-0.2) /100WBC PT 11.8 (10.0-13.1) SEC INR 1.0 (0.9-1.1) Sodium (135-145) mmol/L Potassium (3.3-5.1) mmol/L Chloride (96-108) mmol/L Carbon Dioxide (22-29) mmol/L Anion Gap (12-20) BUN (9-16) mg/dL Creatinine (0.5-1.4) mg/dL Estim Creat Clear Calc Estimated GFR Random Glucose (60-115) mg/dL Calcium (8.4-10.2) mg/dL Magnesium (1.6-2.6) mg/dL Total Bilirubin (0.0-1.0) mg/dL Direct Bilirubin (0.0-0.5) mg/dL AST (5-31) U/L ALT (0-31) U/L Alkaline Phosphatase (39-117) U/L Troponin I High Sens < 2.7 (<3.5-17.0) ng/L B-Natriuretic Peptide 801 H (<100) pg/mL Total Protein (6.5-8.0) g/dL Albumin (3.5-5.0) g/dL TSH (0.32-4.0) uIU/mL 09/26/22 Range/Units 14:08 WBC (4.8-10.8) X10*3/uL RBC (4.20-5.50) X10*6/uL Hgb (12.0-16.0) g/dl Hct (37.0-47.0) % MCV (80.0-98.0) fL MCH (27.0-33.0) pg MCHC (31.0-35.0) g/dl RDW (11.0-16.0) % Plt Count (160-400) X10*3/uL MPV (9.4-12.3) fL Immature Gran % (Auto) (0.0-0.4) % Neut % (Auto) (45-73) % Lymph % (Auto) (20-40) % [place] % (Auto) (2-11) % Eos % (Auto) (0-4) % Baso % (Auto) (0-2) % Lymph # (Auto) (1.2-4.9) X10*3/uL [place] # (Auto) (0.1-1.2) X10*3/uL Eos # (Auto) (0.0-0.4) X10*3/uL Baso # (Auto) (0.0-0.2) X10*3/uL Abs Immat Gran (auto) (0.00-0.03) X10*3/uL Absolute Neuts (auto) (2.0-8.3) x10*3/uL Absolute Nucleated RBC (0.0-0.012) X10*3/uL Nucleated RBC % (auto) (0.0-0.2) /100WBC PT (10.0-13.1) SEC INR (0.9-1.1) Sodium (135-145) mmol/L Potassium (3.3-5.1) mmol/L Chloride (96-108) mmol/L Carbon Dioxide (22-29) mmol/L Anion Gap (12-20) BUN (9-16) mg/dL Creatinine (0.5-1.4) mg/dL Estim Creat Clear Calc Estimated GFR Random Glucose (60-115) mg/dL Calcium (8.4-10.2) mg/dL Magnesium (1.6-2.6) mg/dL Total Bilirubin (0.0-1.0) mg/dL Direct Bilirubin (0.0-0.5) mg/dL AST (5-31) U/L ALT (0-31) U/L Alkaline Phosphatase (39-117) U/L Troponin I High Sens (<3.5-17.0) ng/L B-Natriuretic Peptide (<100) pg/mL Total Protein (6.5-8.0) g/dL Albumin (3.5-5.0) g/dL TSH 1.13 (0.32-4.0) uIU/mL Independent Interpretation I performed an independent interpretation of an: EKG Interpretation: My interpretation patient's EKG showed a atrial fibrillation pattern heart rate is 80 IA QRS QT within normal limits there is no acute ST segment elevation noted. External Record Review External record reviewed: Inpatient record Chronic Conditions Patient?s care impacted by: Hypertension Discharge Plan Discharge Clinical Impression: Atrial fibrillation Patient Disposition: Home, Self-Care Instructions: A-fib (Atrial Fibrillation) (DC) Prescriptions: No Action Enbrel SureClick 50 mg/mL (1 mL) pen injector 50 mg subcut QWEEK Qty: 4 5RF lisinopril 20 mg tablet 20 mg PO BID Qty: 60 0RF hydrochlorothiazide 25 mg tablet 25 mg PO QAM Qty: 30 0RF melatonin 3 mg Tablet 6 mg PO BEDTIME PRN (Reason: Sleep) metoprolol tartrate 100 mg tablet 100 mg PO BID 30 Days Qty: 60 0RF omeprazole 20 mg capsule,delayed release(DR/EC) 20 mg PO DAILY@0630 Centrum Silver 0.4 mg-300 mcg- 250 mcg tablet 1 tab PO DAILY acetaminophen [Tylenol 8 Hour] 650 mg tablet extended release 1,300 mg PO BID clobetasol 0.05 % cream 1 appl topical BID PRN (Reason: Itching) triamcinolone acetonide 0.05 % ointment 1 appl topical BID PRN (Reason: Itching) triamcinolone acetonide 0.1 % ointment topical aspirin 81 mg tablet,delayed release (DR/EC) 81 mg PO DAILY gabapentin 300 mg capsule 300 mg PO DAILY amlodipine 5 mg tablet 5 mg PO DAILY Referrals: Jm Blue MD [Primary Care Provider] - 09/28/22
== END 2022-09-26 15:42 | disposition home or self-care (01) ==
PROVIDERS: Emergency Provider Emergency Medicine Emergency Medical Services; PCP Internal Medicine
DX: I48.91 Unspecified atrial fibrillation (principal); R00.2 Palpitations; I25.2 Old myocardial infarction; I10 Essential (primary) hypertension; Z79.60 Long term (current) use of unspecified immunomodulators and immunosuppressants
CPT/HCPCS: 36415; 71045; 80048; 80076; 83735; 83880; 84443; 84484; 85025; 85610; 93005; 99283; 99284

== ENCOUNTER 2023-04-05 14:33 | Outpatient (AMB) | payer OTHER, SELFPAY ==
[2023-04-05 14:43] VITALS: BP 110/68; PULSE 63; TEMP 36.1; O2SAT 98; BMI 30.1
--- NOTE | 2023-04-05 14:43 | A.OFFVIS_ITS ---
Intake Vital Signs 04/05/23 14:43 Height 5 ft 4 in Weight 175 lb 4.28 oz BMI 30.1 BP 110/68 Blood Pressure Location Rt brachial Position Sitting Pulse 63 Pulse Source Pulse Oximeter Temp 96.9 F Temp Source Skin Pulse Oximetry (%) 98 Oxygen Delivery Method Room Air Intake Visit Reasons: RA Intake Note: Pt last seen by Dr Palma back in September 2022, presents today for follow up. Denies new surgery or hospitalizations. Still following with cardiology Dr Turk. Denies new or increased pain. States she is doing well overall and is just here to follow up and check labs routinely. [place] Required: No Accompanied by: Self / Same As Patient Allergies ciprofloxacin [From Cipro] Allergy (Intermediate, Verified 04/05/23 14:51) Rash codeine Allergy (Intermediate, Verified 04/05/23 14:51) rash Medication List - Last Reconciled 04/05/23 by Deep Barakat MD acetaminophen ER (Tylenol 8 Hour) 1,300 mg PO BID amlodipine 5 mg PO DAILY aspirin 81 mg PO DAILY clobetasol 0.05% 1 appl topical BID PRN etanercept (Enbrel SureClick) 50 mg subcut QWEEK gabapentin 300 mg PO DAILY hydrochlorothiazide 25 mg PO QAM lisinopril 20 mg PO BID melatonin 6 mg PO BEDTIME PRN metoprolol tartrate 100 mg PO BID 30 days ojjyygcd-ydh-ZG-lycopen-lutein 0.4 mg-300 mcg- 250 mcg (Centrum Silver) 1 tab PO DAILY omeprazole 20 mg PO DAILY@0630 triamcinolone acetonide 0.05% 1 appl topical BID PRN triamcinolone acetonide 0.1% topical HPI HPI Comments History of Present Illness Details This is a 67-year-old female with seropositive erosive RA who returns for follow-up. On Enbrel 50 mg weekly. Doing well overall with no increased joint pain or stiffness. She states that she gets intermittent swelling of the anterior aspect of her ankles but it does not hurt much. She does take Tylenol 2 tablets in the morning and at night to treat generalized pains such as her back pain. She denies any shortness of breath. She states that she had a cardioversion back in October of 2022 with pentecostal of sinus rhythm Most recent history by Dr. Palma 09/2022: The patient returns for evaluat ion of her rheumatoid arthritis. She remains on Enbrel at 50 mg weekly. She takes occasional ibuprofen if needed. She has pain in the feet, mostly in the instep on the left foot. We did do x-rays at the last visit. It looks like her cardiac situation has stabilized. She is on medications to apparently keep her out of atrial fibrillation and she is off the Eliquis. She does admit to some fatigue and low energy. It is unclear whether this is medication related or not. She is taking gabapentin at night now not taking it during the day but does not think it really helps her. [facility] Medical History Osteopenia after menopause History of myocardial infarction Hypertension Long-term use of immunosuppressant medication Seropositive rheumatoid arthritis Family History Father Heart problem Mother CHF (congestive heart failure) Social History Household Members: Family Household Members Other:: and son Both parents involved: No Caregiver staying overnight: No Housing: House Are you a primary career information specialist to a significant other at home: No Do you presently have visiting nurse or other home services: No 75 years or older and lives alone: No Alcohol intake: never Patient Tobacco Use Status: Never used Tobacco Years Smoked: quit 30-40 years ago e-Cigarette/Vaping Use: Never Used Advance Directives Date on File: 08/11/21 service: No Current occupational status: employed 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 Review of Systems [facility] [place] Denies arthralgias and Reports joint swelling Physical Exam Vital Signs: Last Vital Signs Temp 96.9 F 04/05/23 14:43 Pulse 63 04/05/23 14:43 BP 110/68 04/05/23 14:43 Pulse Ox 98 04/05/23 14:43 Oxygen Delivery Method Room Air 04/05/23 14:43 BMI result Body Mass Index 30.1 Const General: cooperative, healthy appearing and comfortable Nutritional Appearance: average body habitus Orientation/consciousness: patient oriented x3 Limitations: no limitations HEENT Head: Yes normocephalic and Yes atraumatic Mouth: moist mucous membranes Resp Effort & Inspection: normal respiratory effort and able to speak in complete sentences Auscultation: clear to auscultation bilaterally Cardio Rate: regular rate Rhythm: regular rhythm Skin General skin exam: no rashes or lesions noted Neuro General: patient oriented x3 Extrem Other: Osteoarthritic changes of both hands without tenderness Reduced flexion and extension of both wrists but no tenderness or pain Normal range of motion of elbows and shoulders without pain No knee pain with flexion and extension bilaterally Mild swelling of ankles anteriorly but not tender Negative MTP squeeze test bilaterally Bilateral foot bunions Results Reviewed Results Reviewed: Laboratory Tests 07/24/22 07/24/22 07/24/22 12:56 12:56 12:56 WBC 7.3 Hgb 12.4 ESR 13 C-Reactive Protein 0.27 25-OH Vitamin D Total 07/24/22 12:56 WBC Hgb ESR C-Reactive Protein 25-OH Vitamin D Total [address] [address] XRay Report Signed Patient: Palmira Briones MR#: [id number] : 1955 Acct:[id number] Age/Sex: 67 / F ADM Date: 07/24/22 Loc: [facility] Attending Dr: Jesús Palma MD Ordering Physician: Jesús Palma MD Date of Service: 07/24/22 Procedure(s): XR foot RT min 3V Accession Number(s): [id number] cc: Jesús Palma MD~ EXAMINATION: XR foot RT min 3V, XR foot LT min 3V CLINICAL INFORMATION: Rheumatoid arthritis? COMPARISON: None? TECHNIQUE: 3 views of the bilateral feet ? XR/XR foot RT min 3V FINDINGS/IMPRESSION: ? RIGHT FOOT: ? No fracture or dislocation. ? Mild degenerative changes of the first metatarsophalangeal joint and the proximal and distal interphalangeal joints. Mild degenerative changes of the dorsal midfoot with degenerative spurring. Plantar calcaneal enthesopathy. Calcifications along the course of the plantar fascia. ? Periarticular cortical erosion along the head of the fifth metatarsal, which can be seen in the setting of erosive arthropathy such as rheumatoid arthritis. ? No joint effusion. ? Soft tissues are unremarkable. ? LEFT FOOT: ? ? No fracture or dislocation. ? Mild degenerative changes of the first metatarsophalangeal joint and the proximal and distal interphalangeal joints. Advanced degenerative changes of the dorsal midfoot with loss of talonavicular joint space and degenerative spurring. Plantar calcaneal spurring with calcification along the course of the plantar fascia. ? No cortical erosion. ? Small tibiotalar joint effusion. ? Soft tissues are unremarkable. ? IMPRESSION: ? RIGHT FOOT: Periarticular cortical erosion along the head of the fifth metatarsal which may be seen in the setting of erosive arthropathy such as rheumatoid arthritis. ? Mild degenerative changes of the left foot. LEFT FOOT: Degenerative changes of the foot worst involving the talonavicular joint where it is advanced with complete loss of joint space. Small tibiotalar joint effusion. No cortical erosion.? ?Dictated By: Lesly England MD Assessment & Plan Assessment & Plan (1) Seropositive rheumatoid arthritis: Comment: dx 2011 ++RF HCQ 08/05. MTX added 07/2013. Enbrel started 06/2014 - tried for about 4 months but stopped because of anxiety, lightheadedness, and fatigue. 2014: SSZ added to MTX & HCQ and SSZ stopped because of GI side effects 04/2015 Enbrel restarted 06/08 - added to MTX & HCQ; HCQ discontinued 03/2016 as it wasn't needed. 12/2017: MTX stopped, patient noncompliant with lab work. Enbrel continued. Code(s): M05.9 - Rheumatoid arthritis with rheumatoid factor, unspecified Plan: This is a 67-year-old female with seropositive erosive RA who presents for follow-up. She was doing well overall on Enbrel 50 mg weekly. Continue with Enbrel 50 mg weekly. Labs before next visit in 6 months (2) Long-term use of immunosuppressant medication: Code(s): Z79.899 - Other mcc (current) drug therapy Plan: Hold Enbrel for any signs of infection (3) CHF (congestive heart failure): Code(s): I50.9 - Heart failure, unspecified Qualifiers: Heart failure type: systolic Heart failure chronicity: chronic Qualified Code(s): I50.22 - Chronic systolic (congestive) heart failure Plan: HFrEF with mildly reduced ejection fraction, 2D echo showed fixed defects, stres s test did not show signs of ischemia. She had AFib that was cardioverted back to sinus. Her reduced ejection fraction seemed to be less likely to be related to Enbrel. Currently patient is minimally symptomatic from cardiac standpoint. Will continue to monitor patient, if her ejection fraction worsens, we can consider changing her Enbrel Plan I spent 36 minutes reviewing patient's chart, evaluating patient, ordering diagnostic workup, counseling patient and documenting in the chart Orders: Orders Erythrocyte Sedimentation Rate 6 Months M05.9 - Rheumatoid arthritis with rheumatoid factor, unspecified T Spot TB 6 Months Z11.7 - Encounter for testing for latent tuberculosis infection Cyclic Citrullinated Peptide 6 Months M05.9 - Rheumatoid arthritis with rheumatoid factor, unspecified Complete Blood Count Auto Diff 6 Months M05.9 - Rheumatoid arthritis with rheumatoid factor, unspecified Comprehensive Met. Panel 6 Months M05.9 - Rheumatoid arthritis with rheumatoid factor, unspecified C Reactive Protein 6 Months M05.9 - Rheumatoid arthritis with rheumatoid factor, unspecified Hepatitis A,B,C Profile 6 Months Z11.59 - Encounter for screening for other viral diseases Coding Level of Care Code Est Pt Level 4 (55871) Diagnoses Seropositive rheumatoid arthritis M05.9 Long-term use of immunosuppressant medication Z79.899 Chronic systolic congestive heart failure I50.22 Heart failure type: systolic Heart failure chronicity: chronic
== END 2023-04-05 15:18 | disposition home or self-care (01) ==
LOC: HO.RHE 14:33
PROVIDERS: PCP Internal Medicine; Visit Provider Student in an Organized Health Care Education/Training Program
DX: M05.79 Rheumatoid arthritis with rheumatoid factor of multiple sites without organ or systems involvement (principal); Z79.899 Other long term (current) drug therapy; I50.22 Chronic systolic (congestive) heart failure
CPT/HCPCS: 99214

== ENCOUNTER → 2023-04-05 14:33 | Outpatient (BNVA) | payer OTHER, SELFPAY | PROVIDERS: PCP Internal Medicine; Visit Provider Student in an Organized Health Care Education/Training Program ==

== ENCOUNTER 2023-07-28 00:48 | Emergency (ER) | payer OTHER, SELFPAY ==
--- NOTE | 2023-07-28 | ECG_ITS ---
Test Reason : AFID/ABDOMINAL PAIN Blood Pressure : / mmHG Vent. Rate : 067 BPM Atrial Rate : 067 BPM P-R Int : 166 ms QRS Dur : 092 ms QT Int : 414 ms P-R-T Axes : 058 -03 035 degrees QTc Int : 437 ms Normal sinus rhythm Anterior infarct , age undetermined Abnormal ECG When compared with ECG of 26-SEP-2022 12:24, Sinus rhythm has replaced Atrial fibrillation Referred By: Generic ED Physician Electronically Signed By:BRETT BENTLEY
[2023-07-28 00:58] VITALS: BP 135/88; PULSE 64; RESP 18; TEMP 36.8; O2SAT 99
[2023-07-28 01:19] LABS: MANUAL DIFF FLAG NO
--- NOTE | 2023-07-28 01:27 | ED_ITS ---
HPI - Abdominal Pain General Chief Complaint: Abdominal Pain Stated Complaint: Nausea/Diarrhea/Abd pain Time Seen by Provider: 07/28/23 01:16 Source: patient Mode of arrival: ambulatory Limitations: no limitations History of Present Illness HPI narrative: Patient comes to the emergency room complaining of nausea vomiting and diarrhea x1, abdominal cramping started approximately 1 hour ago. Patient states that since she arrived to the hospital she started to feel better. However, still a bit nauseous. Denies chest pain or shortness of breath. Related Data Home Medications ?Medication ?Instructions ?Recorded ?Confirmed acetaminophen 650 mg 1,300 mg PO BID 08/08/21 02/15/22 tablet,extended release (Tylenol 8 Hour) clobetasol 0.05 % topical cream 1 appl topical BID PRN Itching 08/08/21 02/15/22 xanxgpkh-mgw-esyha acid 0.4 1 tab PO DAILY 08/08/21 02/15/22 mg-lycopene 300 mcg-lutein 250 mcg tablet (Centrum Silver) omeprazole 20 mg capsule,delayed 20 mg PO DAILY@0630 08/08/21 02/15/22 release triamcinolone acetonide 0.05 % 1 appl topical BID PRN Itching 08/08/21 02/15/22 topical ointment melatonin 3 mg tablet 6 mg PO BEDTIME PRN Sleep 08/11/21 02/15/22 triamcinolone acetonide 0.1 % topical 02/15/22 02/15/22 topical ointment amlodipine 5 mg tablet 5 mg PO DAILY 09/25/22 aspirin 81 mg tablet,delayed 81 mg PO DAILY 09/25/22 release gabapentin 300 mg capsule 300 mg PO DAILY 09/25/22 Previous Rx's ?Medication ?Instructions ?Recorded metoprolol tartrate 100 mg tablet 100 mg PO BID 30 days #60 tabs 08/13/21 lisinopril 20 mg tablet 20 mg PO BID #60 tabs 03/18/22 hydrochlorothiazide 25 mg tablet 25 mg PO QAM #30 tabs 03/19/22 Enbrel SureClick 50 mg/mL (1 mL) 50 mg subcut QWEEK #4 mL 06/05/23 subcutaneous pen injector (etanercept) loperamide 2 mg capsule 2 mg PO Q6H PRN loose stool #14 07/28/23 caps Allergies Allergy/AdvReac Type Severity Reaction Status Date / Time ciprofloxacin [From Cipro] Allergy Intermediate Rash Verified 07/28/23 01:01 codeine Allergy Intermediate rash Verified 07/28/23 01:01 Review of Systems Review of Systems Constitutional : No Weight loss, No Fever, No Chills, No Night Sweats, No Fatigue, No Malaise ENT/Mouth : No Hearing loss, No Ear Pain, No Nasal Congestion, No Sinus Pain, No Hoarseness, No sore throat, No Rhinorrhea, No Swallowing Difficulty Eyes: No Eye Pain, No Swelling, No Redness, No Foreign Body, No Discharge, No Vision Changes Cardiovascular : No Chest Pain, No SOB, No Dyspnea on Exertion, No Orthopnea, No Edema, No Palpitations Respiratory : No Cough, No Sputum, No Wheezing, No Smoke Exposure, No Dyspnea Gastrointestinal complaining of nausea, 1 episode of vomiting in 1 of diarrhea. No Constipation, abdominal discomfort which is feeling Genitourinary : no irregular bleeding, No Dysuria, No Urinary Frequency, No Hematuria, No Urinary Incontinence, No Urgency, No Flank Pain, No Urinary Flow Changes, No Hesitancy Musculoskeletal : No joint pain, No Myalgias, No Joint Swelling Skin : No Skin Lesions, No rash Neuro : No Weakness, No Numbness, No Paresthesias, No Loss of Consciousness, No Dizziness, No Headache Psych : No Anxiety/Panic, No Depression, No SI/HI/AH/VH, No Social Issues, Heme/Lymph: No Bruising, No Bleeding,No Lymphadenopathy Endocrine : No Polyuria, No Polydipsia, No Temperature Intolerance [facility] Past Medical History Medical History Osteopenia after menopause History of myocardial infarction Hypertension Long-term use of immunosuppressant medication Seropositive rheumatoid arthritis Family History Family History Father Heart problem Mother CHF (congestive heart failure) Social History Social History Household Members: Family Household Members Other:: and son Housing: House Are you a primary property caretaker to a significant other at home: No Do you presently have visiting nurse or other home services: No Alcohol intake: never Patient Tobacco Use Status: Never used Tobacco Years Smoked: quit 30-40 years ago e-Cigarette/Vaping Use: Never Used Advance Directives: Yes Advance Directives on File: Yes Advance Directives Date on File: 08/11/21 Do you have a plan to hurt others: No Plan service: No Current occupational status: employed 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 Oriented X3. No acute distress. Eyes: Pupils equal, round and reactive to light. ENT: Pharynx normal. Neck: Normal inspection. Neck supple. No lymph nodes noted. No crepitus CVS: Normal heart rate and rhythm. Pulses normal. Normal S1 and S2 Respiratory: No respiratory distress. Breath sounds normal. No Wheezing. No rales Abdomen: Soft and nontender. No rigidity. No distention. Skin: Skin warm and dry. Normal skin color. Normal skin turgor. Extremities: No lower extremity edema. No Lacerations. No Rash Neuro: Oriented X 3. No motor deficit. No sensory deficit. Moving all extremities. No slurred speech. CN 2 through 12 grossly intact Psych: calm, cooperative, normal affect Course Course Course Narrative: -all of patient's labs pending -patient given p.o. Zofran and loperamide Medical Decision Making Medical Decision Making [facility] Narrative: -interpretation of labs: Hematology, coagulation, chemistry within normal limits, LFTs normal, troponin negative, BNP lower than baseline. Serology negative for influenza RSV and COVID -urinalysis negative. -patient likely having a viral syndrome Differential Diagnosis Differential Diagnoses: The differential diagnosis associated with the presentation includes (Gastritis, gastroenteritis, viral illness) Lab Data [facility] Lab Attestation statement: I reviewed the patient's lab results. 07/28/23 01:14 07/28/23 01:14 Labs: Lab Results 07/28/23 07/28/23 Range/Units 01:14 02:25 WBC 8.8 (4.8-10.8) X10*3/uL RBC 3.77 L (4.20-5.50) X10*6/uL Hgb 12.0 (12.0-16.0) g/dl Hct 36.0 L (37.0-47.0) % MCV 95.5 (80.0-98.0) fL MCH 31.8 (27.0-33.0) pg MCHC 33.3 (31.0-35.0) g/dl RDW 12.0 (11.0-16.0) % Plt Count 208 D (160-400) X10*3/uL MPV 10.9 (9.4-12.3) fL Immature Gran % (Auto) 0.2 (0.0-0.4) % Neut % (Auto) 53.0 (45-73) % Lymph % (Auto) 38.6 (20-40) % [place] % (Auto) 6.1 (2-11) % Eos % (Auto) 1.9 (0-4) % Baso % (Auto) 0.2 (0-2) % Lymph # (Auto) 3.4 (1.2-4.9) X10*3/uL [place] # (Auto) 0.5 (0.1-1.2) X10*3/uL Eos # (Auto) 0.2 (0.0-0.4) X10*3/uL Baso # (Auto) 0.0 (0.0-0.2) X10*3/uL Abs Immat Gran (auto) 0.02 (0.00-0.03) X10*3/uL Absolute Neuts (auto) 4.6 (2.0-8.3) x10*3/uL Absolute Nucleated RBC 0.000 (0.0-0.012) X10*3/uL Nucleated RBC % (auto) 0.0 (0.0-0.2) /100WBC PT 12.8 (11.1-13.3) SEC INR 1.1 (0.9-1.1) Sodium 144 (135-145) mmol/L Potassium 3.8 (3.3-5.1) mmol/L Chloride 108 (96-108) mmol/L Carbon Dioxide 26 (22-29) mmol/L Anion Gap 14 (12-20) BUN 15 (9-16) mg/dL Creatinine 0.71 (0.5-1.4) mg/dL Estim Creat Clear Calc 75.1 Estimated GFR > 60 Random Glucose 97 (60-115) mg/dL Calcium 9.1 D (8.4-10.2) mg/dL Total Bilirubin 0.8 (0.0-1.0) mg/dL AST 22 (5-31) U/L ALT 15 (0-31) U/L Alkaline Phosphatase 94 (39-117) U/L Troponin I High Sens 4.0 (<3.5-17.0) ng/L B-Natriuretic Peptide 225 H (<100) pg/mL Total Protein 7.1 (6.5-8.0) g/dL Albumin 3.5 (3.5-5.0) g/dL Urine Color Yellow Urine Appearance Clear Urine pH 7.0 (5.0-9.0) Ur Specific [place] 1.020 (1.005-1.025) Urine Protein Trace (Neg-Trace) mg/dL Urine Glucose (UA) Negative (Negative) mg/dL Urine Ketones Negative (Negative) mg/dL Urine Blood Moderate (2+) H (Negative) Urine Nitrite Negative (Negative) Ur Leukocyte Esterase Small (1+) H (Negative) Influenza Type A (PCR) NEGATIVE (Negative) Influenza Type B (PCR) NEGATIVE (Negative) RSV RNA Qual (PCR) NEGATIVE (Negative) SARS-CoV-2 RNA (RT-PCR) NEGATIVE (Negative) Medications Administered Discontinued Medications Generic Name Dose Route Start Last Admin Trade Name Freq PRN Reason Stop Dose Admin Loperamide HCl 4 mg 07/28/23 01:25 07/28/23 01:33 Loperamide Hcl 2 Mg Capsule PO 07/28/23 01:26 4 mg ONCE ONE Administration Discharge Plan Discharge Clinical Impression: Viral syndrome Patient Disposition: Home, Self-Care Instructions: Acute Diarrhea (ED), Viral Syndrome (ED) Additional Instructions: Please follow-up with your primary care physician tomorrow. If you have any worsening or new symptoms, please return to the emergency room or call 911 Prescriptions: New loperamide 2 mg capsule 2 mg PO Q6H PRN (Reason: loose stool) Qty: 14 0RF No Action Enbrel SureClick 50 mg/mL (1 mL) pen injector 50 mg subcut QWEEK Qty: 4 2RF lisinopril 20 mg tablet 20 mg PO BID Qty: 60 0RF hydrochlorothiazide 25 mg tablet 25 mg PO QAM Qty: 30 0RF melatonin 3 mg Tablet 6 mg PO BEDTIME PRN (Reason: Sleep) metoprolol tartrate 100 mg tablet 100 mg PO BID 30 Days Qty: 60 0RF omeprazole 20 mg capsule,delayed release(DR/EC) 20 mg PO DAILY@0630 Centrum Silver 0.4 mg-300 mcg- 250 mcg tablet 1 tab PO DAILY acetaminophen [Tylenol 8 Hour] 650 mg tablet extended release 1,300 mg PO BID clobetasol 0.05 % cream 1 appl topical BID PRN (Reason: Itching) triamcinolone acetonide 0.05 % ointment 1 appl topical BID PRN (Reason: Itching) triamcinolone acetonide 0.1 % ointment topical aspirin 81 mg tablet,delayed release (DR/EC) 81 mg PO DAILY gabapentin 300 mg capsule 300 mg PO DAILY amlodipine 5 mg tablet 5 mg PO DAILY Print Language: Singaporean
[2023-07-28 01:29] LABS: Basophils Percent Auto 0.2 % (0-2); Eosinophils Absolute Auto 0.2 X10*3/uL (0.0-0.4); Eosinophils Percent Auto 1.9 % (0-4); Imm Gran Abs Auto 0.02 X10*3/uL (0.00-0.03); Imm Gran Pct Auto 0.2 % (0.0-0.4); Lymphocytes Absolute Auto 3.4 X10*3/uL (1.2-4.9); Lymphocytes Percent Auto 38.6 % (20-40); Mean Corpuscular HGB Conc 33.3 g/dl (31.0-35.0); Mean Corpuscular Hemoglobin 31.8 pg (27.0-33.0); Mean Corpuscular Volume 95.5 fL (80.0-98.0); Mean Platelet Volume 10.9 fL (9.4-12.3); Monocytes Absolute Auto 0.5 X10*3/uL (0.1-1.2); Monocytes Percent Auto 6.1 % (2-11); Neutrophils Absolute Auto 4.6 x10*3/uL (2.0-8.3); Platelet Count 208 X10*3/uL (160-400); Red Blood Count 3.77 X10*6/uL (4.20-5.50); White Blood Count 8.8 X10*3/uL (4.8-10.8)
[2023-07-28] MEDS: Loperamide HCl 2 MG CAPSULE 4 MG PO (01:33)
[2023-07-28 01:34] LABS: Alanine Aminotransferase 15 U/L (0-31); Albumin Level 3.5 g/dL (3.5-5.0); Alkaline Phosphatase 94 U/L (39-117); Anion Gap 14 (12-20); Aspartate Amino Transferase 22 U/L (5-31); Bilirubin Total 0.8 mg/dL (0.0-1.0); Blood Urea Nitrogen 15 mg/dL (9-16); Calcium 9.1 mg/dL (8.4-10.2); Carbon Dioxide 26 mmol/L (22-29); Chloride 108 mmol/L (96-108); Creatinine Clr Calc Pharmacy 75.1; Estimated Glomerular Filt Rate > 60; Glucose Random 97 mg/dL (60-115); Potassium 3.8 mmol/L (3.3-5.1); Sodium 144 mmol/L (135-145); Total Protein 7.1 g/dL (6.5-8.0)
[2023-07-28 01:37] LABS: INTERNATIONAL NORM RATIO 1.1 (0.9-1.1); Prothrombin Time 12.8 SEC (11.1-13.3)
[2023-07-28 01:58] LABS: B Type Natriuretic Peptide 225 pg/mL (<100)
[2023-07-28 02:05] LABS: Influenza A PCR NEGATIVE (Negative); Influenza B PCR NEGATIVE (Negative); Resp Syncy Virus RNA Qual PCR NEGATIVE (Negative); SARS COV2 PCR INHOUSE NEGATIVE (Negative)
[2023-07-28 02:25] VITALS: BP 133/86; PULSE 61; RESP 18; TEMP 36.6; O2SAT 98
[2023-07-28 02:32] LABS: Appearance Urine Clear; Color Urine Yellow; Glucose Urine UA Negative (Negative); Leukocyte Esterase Urine Small (1+) (Negative); Nitrite Urine Negative (Negative); UMIC TRIGGER UACC YES; Urine Blood Moderate (2+) (Negative); Urine Ketones Negative (Negative); Urine Protein Trace mg/dL (Neg-Trace)
[2023-07-28 02:53] VITALS: BP 133/86; PULSE 61; RESP 18; TEMP 36.6; O2SAT 98
[2023-07-28 03:12] LABS: Bacteria Urine None Seen (None Seen); Hyaline Casts Urine 0-2 /LPF (0-2); RBC Urine >20 /HPF (0-2); Squamous Epithelial Cell Urine 0-2 /HPF (0-2); UACC Culture Trigger YES; WBC Urine 0-5 /HPF (0-5)
== END 2023-07-28 02:53 | disposition home or self-care (01) ==
PROVIDERS: Emergency Provider Emergency Medicine
DX: B34.9 Viral infection, unspecified (principal); R11.2 Nausea with vomiting, unspecified; R19.7 Diarrhea, unspecified; R10.9 Unspecified abdominal pain; Z03.818 Encounter for observation for suspected exposure to other biological agents ruled out; I10 Essential (primary) hypertension; M05.9 Rheumatoid arthritis with rheumatoid factor, unspecified; Z79.60 Long term (current) use of unspecified immunomodulators and immunosuppressants
CPT/HCPCS: 0241U; 36415; 80053; 81001; 83880; 84484; 85025; 85610; 87086; 93005; 99283; 99284

== ENCOUNTER → 2023-07-28 01:07 | Outpatient (BNV) | payer OTHER, SELFPAY | PROVIDERS: Emergency Provider Emergency Medicine; Visit Provider Internal Medicine | DX: R94.31 Abnormal electrocardiogram [ECG] [EKG] (principal) | CPT/HCPCS: 93010 ==

== ENCOUNTER 2023-10-12 14:49 | Outpatient (AMB) | payer OTHER, SELFPAY ==
[2023-10-12 14:50] VITALS: BP 98/64; PULSE 72; BMI 29.3
--- NOTE | 2023-10-12 14:50 | A.OFFVIS_ITS ---
Vital Signs 10/12/23 14:50 Height 5 ft 4 in Weight 170 lb 13.732 oz BMI 29.3 BP 98/64 Blood Pressure Location Rt brachial Position Sitting Pulse 72 Pulse Source Pulse Oximeter Intake Visit Reasons: RA/CM Intake Note: Patient last seen on 04/05/23 present today for follow up and test results. Warehouse Lead Required: No Accompanied by: Self / Same As Patient Allergies ciprofloxacin [From Cipro] Allergy (Intermediate, Verified 10/12/23 14:52) Rash codeine Allergy (Intermediate, Verified 10/12/23 14:52) rash Medication List - Last Reconciled 10/12/23 by Deep Barakat MD acetaminophen ER (Tylenol 8 Hour) 1,300 mg PO BID amlodipine 5 mg PO DAILY apixaban (Eliquis) 5 mg PO BID clobetasol 0.05% 1 appl topical BID PRN Enbrel SureClick (etanercept) 50 mg subcut QWEEK NS gabapentin 300 mg PO DAILY hydrochlorothiazide 25 mg PO QAM lisinopril 20 mg PO BID loperamide 2 mg PO Q6H PRN melatonin 6 mg PO BEDTIME PRN metoprolol tartrate 100 mg PO BID 30 days vwjcageo-fyb-WY-lycopen-lutein 0.4 mg-300 mcg- 250 mcg (Centrum Silver) 1 tab PO DAILY omeprazole 20 mg PO DAILY@0630 triamcinolone acetonide 0.05% 1 appl topical BID PRN triamcinolone acetonide 0.1% topical HPI Comments Details: This is a 68-year-old female with seropositive erosive RA who returns for foll ow-up. On Enbrel 50 mg weekly. Doing well overall with no increased joint pain or stiffness. She states that she gets intermittent swelling of the anterior aspect of her ankles but it does not hurt much. Sometimes, She does take Tylenol 2 tablets in the morning and at night to treat generalized pains such as her back pain. She denies any shortness of breath. She states that she had a cardioversion back in October of 2022 with confucianism of sinus rhythm [facility] Medical History Osteopenia after menopause History of myocardial infarction Hypertension Long-term use of immunosuppressant medication Seropositive rheumatoid arthritis Family History Father Heart problem Mother CHF (congestive heart failure) Social History Household Members: Family Household Members Other:: and son Both parents involved: No Caregiver staying overnight: No Housing: House Are you a primary day care assistant to a significant other at home: No Do you presently have visiting nurse or other home services: No 75 years or older and lives alone: No Alcohol intake: never Patient Tobacco Use Status: Never used Tobacco Years Smoked: quit 30-40 years ago e-Cigarette/Vaping Use: Never Used Advance Directives Date on File: 08/11/21 service: No Current occupational status: employed 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 Review of Systems Card Denies dyspnea Resp Denies dyspnea Musc Reports arthralgias and Reports joint swelling Physical Exam Vital Signs: Last Vital Signs Pulse 72 10/12/23 14:50 BP 98/64 10/12/23 14:50 BMI result Body Mass Index 29.3 Const General: cooperative, healthy appearing and comfortable Nutritional Appearance: average body habitus Orientation/consciousness: patient oriented x3 Limitations: no limitations HEENT Head: Yes normocephalic and Yes atraumatic Mouth: moist mucous membranes Resp Effort & Inspection: normal respiratory effort and able to speak in complete sentences Auscultation: clear to auscultation bilaterally Cardio Rate: regular rate Rhythm: regular rhythm Skin General skin exam: no rashes or lesions noted Neuro General: patient oriented x3 Extrem Other: Osteoarthritic changes of both hands without tenderness Reduced flexion and extension of both wrists but no tenderness or pain Normal range of motion of elbows and shoulders without pain No knee pain with flexion and extension bilaterally Mild swelling of ankles anteriorly but not tender Negative MTP squeeze test bilaterally Bilateral foot bunions Results Reviewed Results Reviewed: Laboratory Tests 07/24/22 07/24/22 07/24/22 12:56 12:56 12:56 WBC 7.3 Hgb 12.4 ESR 13 C-Reactive Protein 0.27 25-OH Vitamin D Total 07/24/22 12:56 WBC Hgb ESR C-Reactive Protein 25-OH Vitamin D Total [address] [address] XRay Report Signed Patient: Palmira Briones MR#: [id number] : 1955 Acct:[id number] Age/Sex: 67 / F ADM Date: 07/24/22 Loc: [facility] Attending Dr: Jesús Palma MD Ordering Physician: Jesús Palma MD Date of Service: 07/24/22 Procedure(s): XR foot RT min 3V Accession Number(s): [id number] cc: Jesús Palma MD~ EXAMINATION: XR foot RT min 3V, XR foot LT min 3V CLINICAL INFORMATION: Rheumatoid arthritis? COMPARISON: None? TECHNIQUE: 3 views of the bilateral feet ? XR/XR foot RT min 3V FINDINGS/IMPRESSION: ? RIGHT FOOT: ? No fracture or dislocation. ? Mild degenerative changes of the first metatarsophalangeal joint and the proximal and distal interphalangeal joints. Mild degenerative changes of the dorsal midfoot with degenerative spurring. Plantar calcaneal enthesopathy. Calcifications along the course of the plantar fascia. ? Periarticular cortical erosion along the head of the fifth metatarsal, which can be seen in the setting of erosive arthropathy such as rheumatoid arthritis. ? No joint effusion. ? Soft tissues are unremarkable. ? LEFT FOOT: ? ? No fracture or dislocation. ? Mild degenerative changes of the first metatarsophalangeal joint and the proximal and distal interphalangeal joints. Advanced degenerative changes of the dorsal midfoot with loss of talonavicular joint space and degenerative spurring. Plantar calcaneal spurring with calcification along the course of the plantar fascia. ? No cortical erosion. ? Small tibiotalar joint effusion. ? Soft tissues are unremarkable. ? IMPRESSION: ? RIGHT FOOT: Periarticular cortical erosion along the head of the fifth metatarsal which may be seen in the setting of erosive arthropathy such as rheumatoid arthritis. ? Mild degenerative changes of the left foot. LEFT FOOT: Degenerative changes of the foot worst involving the talonavicular joint where it is advanced with complete loss of joint space. Small tibiotalar joint effusion. No cortical erosion.? ?Dictated By: Lesly England MD Assessment & Plan Assessment & Plan (1) Seropositive rheumatoid arthritis: Comment: dx 2011 ++RF HCQ 08/05. MTX added 07/2013. Enbrel started 06/2014 - tried for about 4 months but stopped because of anxiety, lightheadedness, and fatigue. 2014: SSZ added to MTX & HCQ and SSZ stopped because of GI side effects 04/2015 Enbrel restarted 06/08 - added to MTX & HCQ; HCQ discontinued 03/2016 as it wasn't needed. 12/2017: MTX stopped, patient noncompliant with lab work. Enbrel continued. Code(s): M05.9 - Rheumatoid arthritis with rheumatoid factor, unspecified Category: Medical Plan: This is a 68-year-old female with seropositive erosive RA who presents for follow-up. She was doing well overall with no active synovitis on Enbrel 50 mg weekly. Infectious screening: Hepatitis panel and T spot -ve 09/2023 Continue with Enbrel 50 mg weekly. Labs before next visit in 6 months (2) Long-term use of immunosuppressant medication: Code(s): Z79.899 - Other supervisor intermediates (current) drug therapy Category: Medical Plan: Hold Enbrel for any signs of infection (3) CHF (congestive heart failure): Code(s): I50.9 - Heart failure, unspecified Category: Medical Qualifiers: Heart failure type: systolic Heart failure chronicity: chronic Qualified Code(s): I50.22 - Chronic systolic (congestive) heart failure Plan: HFrEF with mildly reduced ejection fraction, 2D echo showed fixed defects, stress test did not show signs of ischemia. She had AFib that was cardioverted back to sinus. Her reduced ejection fraction seemed to be less likely to be related to Enbrel. Currently patient is minimally symptomatic from cardiac standpoint. Will continue to monitor patient, if her ejection fraction worsens, we can consider changing her Enbrel Plan I spent 26 minutes reviewing patient's chart, evaluating patient, ordering diagnostic workup, counseling patient and documenting in the chart Orders: Orders C Reactive Protein 6 Months M05.9 - Rheumatoid arthritis with rheumatoid factor, unspecified Complete Blood Count Auto Diff 6 Months M05.9 - Rheumatoid arthritis with rheumatoid factor, unspecified Comprehensive Met. Panel 6 Months M05.9 - Rheumatoid arthritis with rheumatoid factor, unspecified Erythrocyte Sedimentation Rate 6 Months M05.9 - Rheumatoid arthritis with rheumatoid factor, unspecified Coding Level of Care Code Est Pt Level 4 (26296) Diagnoses Seropositive rheumatoid arthritis M05.9 Long-term use of immunosuppressant medication Z79.899 Chronic systolic congestive heart failure I50.22 Heart failure type: systolic Heart failure chronicity: chronic
== END 2023-10-12 15:13 | disposition home or self-care (01) ==
LOC: HO.RHE 14:49
PROVIDERS: Visit Provider Student in an Organized Health Care Education/Training Program
DX: M05.79 Rheumatoid arthritis with rheumatoid factor of multiple sites without organ or systems involvement (principal); Z79.899 Other long term (current) drug therapy; I50.22 Chronic systolic (congestive) heart failure
CPT/HCPCS: 99214

== ENCOUNTER → 2023-10-12 14:49 | Outpatient (BNVA) | payer OTHER, SELFPAY | PROVIDERS: Visit Provider Student in an Organized Health Care Education/Training Program ==

== ENCOUNTER 2023-12-30 00:42 | Emergency (ER) | payer OTHER, SELFPAY ==
--- NOTE | 2023-12-30 | ECG_ITS ---
Test Reason : chest discomfort Blood Pressure : / mmHG Vent. Rate : 058 BPM Atrial Rate : 058 BPM P-R Int : 162 ms QRS Dur : 084 ms QT Int : 402 ms P-R-T Axes : 055 -04 032 degrees QTc Int : 394 ms Sinus bradycardia Otherwise normal ECG When compared with ECG of 28-JUL-2023 01:07, No significant change was found Referred By: Generic ED Physician Electronically Signed By:YANET CAI
[2023-12-30 00:49] VITALS: BP 175/75; PULSE 64; RESP 18; TEMP 36.6; O2SAT 97
[2023-12-30 01:09] LABS: MANUAL DIFF FLAG NO
[2023-12-30 01:10] LABS: Basophils Percent Auto 0.4 % (0-2); Eosinophils Absolute Auto 0.1 X10*3/uL (0.0-0.4); Eosinophils Percent Auto 1.6 % (0-4); Hemoglobin 11.9 g/dl (12.0-16.0); Imm Gran Abs Auto 0.01 X10*3/uL (0.00-0.03); Imm Gran Pct Auto 0.1 % (0.0-0.4); Lymphocytes Absolute Auto 3.9 X10*3/uL (1.2-4.9); Lymphocytes Percent Auto 58.3 % (20-40); Mean Corpuscular HGB Conc 33.1 g/dl (31.0-35.0); Mean Corpuscular Hemoglobin 31.6 pg (27.0-33.0); Mean Corpuscular Volume 95.5 fL (80.0-98.0); Mean Platelet Volume 10.7 fL (9.4-12.3); Monocytes Absolute Auto 0.5 X10*3/uL (0.1-1.2); Monocytes Percent Auto 7.5 % (2-11); Neutrophils Absolute Auto 2.2 x10*3/uL (2.0-8.3); Neutrophils Percent Auto 32.1 % (45-73); Platelet Count 203 X10*3/uL (160-400); Red Blood Count 3.77 X10*6/uL (4.20-5.50); Red Cell Distribution Width 12.5 % (11.0-16.0); White Blood Count 6.7 X10*3/uL (4.8-10.8)
[2023-12-30 01:25] LABS: Alanine Aminotransferase 15 U/L (0-31); Albumin Level 3.6 g/dL (3.5-5.0); Alkaline Phosphatase 103 U/L (39-117); Anion Gap 12 (12-20); Aspartate Amino Transferase 23 U/L (5-31); Blood Urea Nitrogen 13 mg/dL (9-16); Calcium 9.5 mg/dL (8.4-10.2); Carbon Dioxide 25 mmol/L (22-29); Chloride 109 mmol/L (96-108); Estimated Glomerular Filt Rate > 60; Glucose Random 97 mg/dL (60-115); Magnesium 1.9 mg/dL (1.6-2.6); Potassium 3.8 mmol/L (3.3-5.1); Sodium 142 mmol/L (135-145); Total Protein 7.3 g/dL (6.5-8.0)
[2023-12-30 01:29] LABS: Troponin-I High Sensitivity 5.2 ng/L (<3.5-17.0)
[2023-12-30 02:30] VITALS: BP 143/72; PULSE 57; RESP 16; TEMP 36.6; O2SAT 98
--- NOTE | 2023-12-30 03:18 | ED_ITS ---
HPI - General Adult General Chief complaint: General Medical Stated complaint: high blood pressure Time Seen by Provider: 12/30/23 03:17 Source: patient and family () Mode of arrival: ambulatory Limitations: no limitations History of Present Illness ED Provider: Dr. Enrike Shannon HPI narrative: 68-year-old female with a history of myocardial infarction, congestive heart failure, paroxysmal atrial fibrillation, rheumatoid arthritis who presents emergency department for evaluation of elevated blood pressures. The patient states that at around 22:00 hours she was watching TV and she had a brief episode of chest pain. She points to the center of her chest and describes the pain is a sharp pain which resolved after seconds. She states she did have nausea with no vomiting. She was concerned that her symptoms may be caused by elevated blood pressures therefore she checked her blood pressure and it was 188/111. The patient denied headache, numbness, weakness, fever, chills, rhinorrhea, cough. She states she does have occasional dyspnea on exertion but this is unchanged from her baseline. She states that recently her blood pressures were low in her doctor's had to adjust her medications. She was concerned about the elevated blood pressure reading so she came to the emergency department for evaluation. Related Data Home Medications ?Medication ?Instructions ?Recorded ?Confirmed acetaminophen 650 mg 1,300 mg PO BID 08/08/21 02/15/22 tablet,extended release (Tylenol 8 Hour) clobetasol 0.05 % topical cream 1 appl topical BID PRN Itching 08/08/21 02/15/22 bgptgvev-rix-ozemn acid 0.4 1 tab PO DAILY 08/08/21 02/15/22 mg-lycopene 300 mcg-lutein 250 mcg tablet (Centrum Silver) omeprazole 20 mg capsule,delayed 20 mg PO DAILY@0630 08/08/21 02/15/22 release triamcinolone acetonide 0.05 % 1 appl topical BID PRN Itching 08/08/21 02/15/22 topical ointment melatonin 3 mg tablet 6 mg PO BEDTIME PRN Sleep 08/11/21 02/15/22 triamcinolone acetonide 0.1 % topical 02/15/22 02/15/22 topical ointment amlodipine 5 mg tablet 5 mg PO DAILY 09/25/22 gabapentin 300 mg capsule 300 mg PO DAILY 09/25/22 apixaban 5 mg tablet (Eliquis) 5 mg PO BID 10/12/23 Previous Rx's ?Medication ?Instructions ?Recorded metoprolol tartrate 100 mg tablet 100 mg PO BID 30 days #60 tabs 08/13/21 lisinopril 20 mg tablet 20 mg PO BID #60 tabs 03/18/22 hydrochlorothiazide 25 mg tablet 25 mg PO QAM #30 tabs 03/19/22 loperamide 2 mg capsule 2 mg PO Q6H PRN loose stool #14 07/28/23 caps Enbrel SureClick 50 mg/mL (1 mL) 50 mg subcut QWEEK #4 mL 12/20/23 subcutaneous pen injector (etanercept) Allergies Allergy/AdvReac Type Severity Reaction Status Date / Time ciprofloxacin [From Cipro] Allergy Intermediate Rash Verified 12/30/23 00:53 codeine Allergy Intermediate rash Verified 12/30/23 00:53 Review of Systems 2 Review of Systems: Yes all other systems are reviewed and are negative [facility] Past Medical History [facility] Narrative: Social history: She lives with her . Medical History Osteopenia after menopause History of myocardial infarction Hypertension Long-term use of immunosuppressant medication Seropositive rheumatoid arthritis Family History Family History Father Heart problem Mother CHF (congestive heart failure) Social History Social History Household Members: Family Household Members Other:: and son Housing: House Are you a primary urgent care nurse practitioner to a significant other at home: No Do you presently have visiting nurse or other home services: No Alcohol intake: never Patient Tobacco Use Status: Never used Tobacco Years Smoked: quit 30-40 years ago Smoked in Last 30 Days: No e-Cigarette/Vaping Use: Never Used Use of substances other than those prescribed or required for medical reasons: No Advance Directives: Yes Advance Directives on File: Yes Advance Directives Date on File: 08/11/21 Do you have a plan to hurt others: No Plan service: No Current occupational status: employed 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 Exam: General: Awake, alert in no distress Head: Normocephalic, atraumatic EENT: PERRL, Lids normal, sclera normal, conjunctiva normal, nose normal , ears normal, throat without erythema or exudates Neck: Supple, no adenopathy Lung: breath sounds symmetric, no wheezing, rales or rhonchi Chest: symmetric movement, nontender Heart: regular rate and rhythm, normal S1, S2 no murmurs or rubs Abdomen: soft, non-tender, nondistended, normal bowel sounds Back: no vertebral tenderness, no CVAT Extremities: no deformities, moves all extremities symmetrically Neuro: Awake, alert, oriented, normal speech, cranial nerves intact, moves all extremities symmetrically Psych: Pleasant, cooperative Medical Decision Making Medical Decision Making MDM Narrative: 68-year-old female with a history of myocardial infarction, congestive heart failure, paroxysmal atrial fibrillation, rheumatoid arthritis who presents emergency department for evaluation of elevated blood pressures. The patient states that at around 22:00 hours she was watching TV and she had a brief episode of chest pain associated with nausea. She checked her blood pressure at home and it was 188/111 which concerned her therefore she came to the emergency department for evaluation. She states that her providers recently changed her blood pressure medications secondary to low blood pressure. Review of systems was negative. Physical examination was normal. Differential diagnosis: ?Includes but is not limited to stroke, myocardial infarction, intracranial bleed, kidney failure, liver failure, electrolyte abnormalities, anemia Course: 03:42 My interpretation patient's laboratory evaluation is as follows: Normocytic anemia with an H&H of 11.9 and 36.0. Normal WBC 6700. BUN and creatinine were normal 13 and 0.72. LFTs were normal. Patient's 12 EKG revealed a sinus bradycardia with no evidence for myocardial infarction or myocardial ischemia At this time I believe that the patient's elevated blood pressure was triggered by her brief episode of chest pain and nausea and I did discuss this with her. Patient was advised to check your blood pressures on Mondays, Wednesdays and Fridays for 2 weeks and to follow up with her PCP to review these readings. She was advised to continue medication as prescribed by your providers. She was given printed and verbal instructions and discharged home. Admission/Observation Consideration of admission/observation: Escalation of care including admission/observation considered (Yes) Lab Data MDM Lab Attestation statement: I reviewed the patient's lab results. 12/30/23 01:03 12/30/23 01:03 Labs: Lab Results 12/30/23 12/30/23 Range/Units 01:02 01:03 WBC 6.7 (4.8-10.8) X10*3/uL RBC 3.77 L (4.20-5.50) X10*6/uL Hgb 11.9 L (12.0-16.0) g/dl Hct 36.0 L (37.0-47.0) % MCV 95.5 (80.0-98.0) fL MCH 31.6 (27.0-33.0) pg MCHC 33.1 (31.0-35.0) g/dl RDW 12.5 (11.0-16.0) % Plt Count 203 (160-400) X10*3/uL MPV 10.7 (9.4-12.3) fL Immature Gran % (Auto) 0.1 (0.0-0.4) % Neut % (Auto) 32.1 L (45-73) % Lymph % (Auto) 58.3 H (20-40) % [place] % (Auto) 7.5 (2-11) % Eos % (Auto) 1.6 (0-4) % Baso % (Auto) 0.4 (0-2) % Lymph # (Auto) 3.9 (1.2-4.9) X10*3/uL [place] # (Auto) 0.5 (0.1-1.2) X10*3/uL Eos # (Auto) 0.1 (0.0-0.4) X10*3/uL Baso # (Auto) 0.0 (0.0-0.2) X10*3/uL Abs Immat Gran (auto) 0.01 (0.00-0.03) X10*3/uL Absolute Neuts (auto) 2.2 (2.0-8.3) x10*3/uL Absolute Nucleated RBC 0.000 (0.0-0.012) X10*3/uL Nucleated RBC % (auto) 0.0 (0.0-0.2) /100WBC Sodium 142 (135-145) mmol/L Potassium 3.8 (3.3-5.1) mmol/L Chloride 109 H (96-108) mmol/L Carbon Dioxide 25 (22-29) mmol/L Anion Gap 12 (12-20) BUN 13 (9-16) mg/dL Creatinine 0.72 (0.5-1.4) mg/dL Estim Creat Clear Calc 74.0 Estimated GFR > 60 Random Glucose 97 (60-115) mg/dL Calcium 9.5 (8.4-10.2) mg/dL Magnesium 1.9 (1.6-2.6) mg/dL Total Bilirubin 1.0 (0.0-1.0) mg/dL AST 23 (5-31) U/L ALT 15 (0-31) U/L Alkaline Phosphatase 103 (39-117) U/L Troponin I High Sens 5.2 (<3.5-17.0) ng/L Total Protein 7.3 (6.5-8.0) g/dL Albumin 3.6 (3.5-5.0) g/dL Independent Interpretation I performed an independent interpretation of an: EKG Interpretation: Twelve EKG done at 00:50 hours was interpreted by me as follows: Sinus bradycardia with a rate of 58, normal NC interval, QRS duration QTC interval, no ST segment elevation, no ST segment depression, no PACs, no PVCs, Q-waves in lead 3, V1 and V2. Chronic Conditions Patient?s care impacted by: Hypertension and Other (Coronary artery disease) Discharge Plan Discharge Clinical Impression: Chest pain, High blood pressure, Nausea Patient Disposition: Home, Self-Care Additional Instructions: Your blood pressures were high when you got here in the emergency department and came down without any treatment which is reassuring. Your blood work was normal including your kidney function and liver tests. Your EKG shows that you are in a normal sinus rhythm and not in atrial fibrillation. At this time, I think that your high blood pressure was related to you not feeling well and I do not think that you need any change in your medications. You should follow-up with your doctor in 2 weeks for re-evaluation. I want you to take your blood pressure is in the mornings on Sunday, Sunday and Fridays for the next 2 weeks. Write these blood pressure readings down and then show them to your doctor and your doctor can determine if you need any change in your blood pressure medications. Follow-up with your doctor in 2 days. Please return to the emergency department if your symptoms get worse or if you develop any symptoms that are concerning to you. Prescriptions: No Action Enbrel SureClick 50 mg/mL (1 mL) pen injector 50 mg subcut QWEEK Qty: 4 2RF lisinopril 20 mg tablet 20 mg PO BID Qty: 60 0RF hydrochlorothiazide 25 mg tablet 25 mg PO QAM Qty: 30 0RF melatonin 3 mg Tablet 6 mg PO BEDTIME PRN (Reason: Sleep) metoprolol tartrate 100 mg tablet 100 mg PO BID 30 Days Qty: 60 0RF loperamide 2 mg capsule 2 mg PO Q6H PRN (Reason: loose stool) Qty: 14 0RF omeprazole 20 mg capsule,delayed release(DR/EC) 20 mg PO DAILY@0630 Centrum Silver 0.4 mg-300 mcg- 250 mcg tablet 1 tab PO DAILY acetaminophen [Tylenol 8 Hour] 650 mg tablet extended release 1,300 mg PO BID clobetasol 0.05 % cream 1 appl topical BID PRN (Reason: Itching) triamcinolone acetonide 0.05 % ointment 1 appl topical BID PRN (Reason: Itching) triamcinolone acetonide 0.1 % ointment topical Eliquis 5 mg tablet 5 mg PO BID gabapentin 300 mg capsule 300 mg PO DAILY amlodipine 5 mg tablet 5 mg PO DAILY Print Language: Israeli
[2023-12-30 03:21] VITALS: BP 146/70; PULSE 60
[2023-12-30 03:42] VITALS: BP 135/82; PULSE 60; RESP 18; TEMP 36.7; O2SAT 97
[2023-12-30 03:47] VITALS: BP 135/82; PULSE 60; RESP 18; TEMP 36.7; O2SAT 97
== END 2023-12-30 03:47 | disposition home or self-care (01) ==
PROVIDERS: Emergency Provider Emergency Medicine Emergency Medical Services
DX: R07.89 Other chest pain (principal); R11.0 Nausea; I10 Essential (primary) hypertension; I48.0 Paroxysmal atrial fibrillation; Z79.01 Long term (current) use of anticoagulants; Z79.899 Other long term (current) drug therapy
CPT/HCPCS: 36415; 80053; 83735; 84484; 85025; 93005; 99284

== ENCOUNTER 2024-03-31 14:03 | Outpatient (AMB) | payer OTHER, SELFPAY ==
--- NOTE | 2024-03-31 14:04 | A.OFFVIS_ITS ---
Vital Signs 03/31/24 14:08 Height 5 ft 4 in Weight 170 lb 13.732 oz BMI 29.3 BP 130/82 Blood Pressure Location Lt brachial Position Sitting Pulse 66 Pulse Source Pulse Oximeter Pulse Oximetry (%) 99 Oxygen Delivery Method Room Air Intake Visit Reasons: RA Intake Note: Patient presents for RA. Allergies ciprofloxacin [From Cipro] Allergy (Intermediate, Verified 03/31/24 14:07) Rash codeine Allergy (Intermediate, Verified 03/31/24 14:07) rash Medication List - Last Reconciled 03/31/24 by Deep Barakat MD acetaminophen ER (Tylenol 8 Hour) 1,300 mg PO BID amlodipine 5 mg PO DAILY apixaban (Eliquis) 5 mg PO BID clobetasol 0.05% 1 appl topical BID PRN Enbrel SureClick (etanercept) 50 mg subcut QWEEK NS gabapentin 300 mg PO DAILY hydrochlorothiazide 25 mg PO QAM lisinopril 20 mg PO BID loperamide 2 mg PO Q6H PRN melatonin 6 mg PO BEDTIME PRN metoprolol tartrate 100 mg PO BID 30 days tazahlcj-zev-PZ-lycopen-lutein 0.4 mg-300 mcg- 250 mcg (Centrum Silver) 1 tab PO DAILY omeprazole 20 mg PO DAILY@0630 triamcinolone acetonide 0.05% 1 appl topical BID PRN triamcinolone acetonide 0.1% topical HPI Comments Details: This is a 68-year-old female with seropositive erosive RA who returns for follow-up. On Enbrel 50 mg weekly. She states that she is doing well overall except for pain in her feet when she walks especially the left foot. It only hurts when she walks on it. She has not noticed any significant swelling. She takes Tylenol. It does not help much, she also tried Voltaren gel, does not help much. She denies any other joint pain or swelling [facility] Medical History Osteopenia after menopause History of myocardial infarction Hypertension Long-term use of immunosuppressant medication Seropositive rheumatoid arthritis Family History Father Heart problem Mother CHF (congestive heart failure) Social History Household Members: Family Household Members Other:: and son Both parents involved: No Caregiver staying overnight: No Housing: House Are you a primary daycare manager to a significant other at home: No Do you presently have visiting nurse or other home services: No 75 years or older and lives alone: No Alcohol intake: never Patient Tobacco Use Status: Never used Tobacco Years Smoked: quit 30-40 years ago e-Cigarette/Vaping Use: Never Used Advance Directives Date on File: 08/11/21 service: No Current occupational status: employed 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 Review of Systems [facility] [place] Physical Exam Vital Signs: Last Vital Signs Pulse 66 03/31/24 14:08 BP 130/82 03/31/24 14:08 Pulse Ox 99 03/31/24 14:08 Oxygen Delivery Method Room Air 03/31/24 14:08 BMI result Body Mass Index 29.3 Const General: cooperative, healthy appearing and comfortable Nutritional Appearance: average body habitus Orientation/consciousness: patient oriented x3 Limitations: no limitations HEENT Head: Yes normocephalic and Yes atraumatic Mouth: moist mucous membranes Resp Effort & Inspection: normal respiratory effort and able to speak in complete se ntences Auscultation: clear to auscultation bilaterally Cardio Rate: regular rate Rhythm: regular rhythm Skin General skin exam: no rashes or lesions noted Neuro General: patient oriented x3 Extrem Other: Osteoarthritic changes of both hands without tenderness Reduced flexion and extension of both wrists but no tenderness or pain Normal range of motion of elbows and shoulders without pain No knee pain with flexion and extension bilaterally Mild swelling of ankles anteriorly but not tender Negative MTP squeeze test bilaterally Bilateral foot bunions Assessment & Plan Assessment & Plan (1) Seropositive rheumatoid arthritis: Comment: dx 2011 ++RF HCQ 08/05. MTX added 07/2013. Enbrel started 06/2014 - tried for about 4 months but stopped because of anxiety, lightheadedness, and fatigue. 2014: SSZ added to MTX & HCQ and SSZ stopped because of GI side effects 04/2015 Enbrel restarted 06/08 - added to MTX & HCQ; HCQ discontinued 03/2016 as it wasn't needed. 12/2017: MTX stopped, patient noncompliant with lab work. Enbrel continued. Code(s): M05.9 - Rheumatoid arthritis with rheumatoid factor, unspecified Category: Medical Plan: This is a 68-year-old female with seropositive erosive RA who presents for follow-up. Doing well overall on Enbrel 50 mg subcutaneously weekly. Has been having bilateral foot pain. I think this is rather mechanical and degenerative arthritis pain. Advised patient to wear comfortable well padded shoes. Will prescribe short course prednisone taper trial Continue with Enbrel 50 mg weekly. 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 She had AFib that was cardioverted back to sinus. Her reduced ejection fraction seemed to be less likely to be related to Enbrel. Currently patient is minimally symptomatic from cardiac standpoint. Will continue to monitor patient, if her ejection fraction worsens, we can consider changing her Enbrel Plan I spent 26 minutes reviewing patient's chart, evaluating patient, ordering diagnostic workup, counseling patient and documenting in the chart Medications: New prednisone Take 2 tabs daily for 1 week then 1 tab daily for 1 week then stop 21 tabs 0RF Coding Level of Care Code Est Pt Level 4 (42134) Complex EM visit Add On G2211 Diagnoses Seropositive rheumatoid arthritis M05.9 Long-term use of immunosuppressant medication Z79.899 Chronic systolic congestive heart failure I50.22 Heart failure type: systolic Heart failure chronicity: chronic
[2024-03-31 14:08] VITALS: BP 130/82; PULSE 66; O2SAT 99; BMI 29.3
== END 2024-03-31 14:38 | disposition home or self-care (01) ==
PROVIDERS: Visit Provider Student in an Organized Health Care Education/Training Program
DX: M05.79 Rheumatoid arthritis with rheumatoid factor of multiple sites without organ or systems involvement (principal); Z79.899 Other long term (current) drug therapy; I50.22 Chronic systolic (congestive) heart failure
CPT/HCPCS: 99214

== ENCOUNTER → 2024-03-31 14:03 | Outpatient (BNVA) | payer OTHER, SELFPAY | PROVIDERS: Visit Provider Student in an Organized Health Care Education/Training Program ==

== ENCOUNTER 2024-04-07 22:32 | Observation (INO) | payer OTHER, SELFPAY ==
--- NOTE | 2024-04-07 | ECG_ITS ---
Test Reason : SYNCOPE Blood Pressure : */* mmHG Vent. Rate : 65 BPM Atrial Rate : 65 BPM P-R Int : 150 ms QRS Dur : 90 ms QT Int : 396 ms P-R-T Axes : 57 -11 11 degrees QTcB Int : 411 ms Normal sinus rhythm Moderate voltage criteria for LVH, may be normal variant ( R in aVL , [place] product ) Borderline ECG When compared with ECG of 30-Dec-2023 00:50, No significant change was found Referred By: Generic ED Physician Electronically Signed By: Franco Murrell
[2024-04-07 22:54] LABS: MANUAL DIFF FLAG NO
[2024-04-07 22:57] LABS: Basophils Percent Auto 0.5 % (0-2); Eosinophils Percent Auto 0.5 % (0-4); Hematocrit 37.7 % (37.0-47.0); Imm Gran Abs Auto 0.02 X10*3/uL (0.00-0.03); Imm Gran Pct Auto 0.3 % (0.0-0.4); Lymphocytes Absolute Auto 2.1 X10*3/uL (1.2-4.9); Lymphocytes Percent Auto 34.4 % (20-40); Mean Corpuscular HGB Conc 34.5 g/dl (31.0-35.0); Mean Corpuscular Hemoglobin 31.9 pg (27.0-33.0); Mean Corpuscular Volume 92.4 fL (80.0-98.0); Mean Platelet Volume 10.4 fL (9.4-12.3); Monocytes Absolute Auto 0.6 X10*3/uL (0.1-1.2); Monocytes Percent Auto 9.4 % (2-11); Neutrophils Absolute Auto 3.4 x10*3/uL (2.0-8.3); Neutrophils Percent Auto 54.9 % (45-73); Platelet Count 269 X10*3/uL (160-400); Red Blood Count 4.08 X10*6/uL (4.20-5.50); Red Cell Distribution Width 12.6 % (11.0-16.0); White Blood Count 6.1 X10*3/uL (4.8-10.8)
[2024-04-07 23:25] LABS: Troponin-I High Sensitivity 4.4 ng/L (<3.5-17.0)
[2024-04-07 23:26] LABS: Alanine Aminotransferase 21 U/L (0-31); Albumin Level 3.6 g/dL (3.5-5.0); Alkaline Phosphatase 88 U/L (39-117); Anion Gap 11 (12-20); Aspartate Amino Transferase 27 U/L (5-31); Bilirubin Total 1.2 mg/dL (0.0-1.0); Blood Urea Nitrogen 17 mg/dL (9-16); Calcium 9.2 mg/dL (8.4-10.2); Carbon Dioxide 27 mmol/L (22-29); Chloride 104 mmol/L (96-108); Estimated Glomerular Filt Rate > 60; Magnesium 1.6 mg/dL (1.6-2.6); Potassium 3.9 mmol/L (3.3-5.1); Sodium 138 mmol/L (135-145); Total Protein 7.3 g/dL (6.5-8.0)
[2024-04-07 23:45] VITALS: BP 103/71; PULSE 68; RESP 18; TEMP 36.8; O2SAT 99; BMI 29.0
[2024-04-07 23:58] LABS: Glucose Random 191 mg/dL (60-115)
[2024-04-08] VITALS (10 sets, daily range): BP systolic 98–136; BP diastolic 62–83; PULSE 54–84; RESP 12–16; TEMP 36.3–36.8; O2SAT 97–99
--- NOTE | 2024-04-08 02:07 | ED.SYNCOPE ---
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 Fara Prince HPI narrative: Patient comes to the emergency room complaining of a brief syncopal episode. Patient states that earlier today, she was sitting at the table organizing her pills. Patient states that suddenly she had a syncopal episode. Patient states that she was sitting, leaned over the table, lasted for a few seconds. Patient states that she had no chest pain or shortness of breath no palpitations. Patient states that recently she has been having issues with her blood pressure dropping. Patient is working with her outreach team member dropping the doses of her medications since she regularly becomes hypotensive. At this time, patient states that she feels completely back to baseline. Patient states that she feels a bit tired. Denies chest pain or shortness of breath or fatigue with exertion Related Data Home Medications ?Medication ?Instructions ?Recorded ?Confirmed acetaminophen 650 mg 1,300 mg PO BID 08/08/21 02/15/22 tablet,extended release (Tylenol 8 Hour) clobetasol 0.05 % topical cream 1 appl topical BID PRN Itching 08/08/21 02/15/22 aaqyrhrq-qcq-tioqi acid 0.4 1 tab PO DAILY 08/08/21 02/15/22 mg-lycopene 300 mcg-lutein 250 mcg tablet (Centrum Silver) omeprazole 20 mg capsule,delayed 20 mg PO DAILY@0630 08/08/21 02/15/22 release triamcinolone acetonide 0.05 % 1 appl topical BID PRN Itching 08/08/21 02/15/22 topical ointment melatonin 3 mg tablet 6 mg PO BEDTIME PRN Sleep 08/11/21 02/15/22 triamcinolone acetonide 0.1 % topical 02/15/22 02/15/22 topical ointment amlodipine 5 mg tablet 5 mg PO DAILY 09/25/22 gabapentin 300 mg capsule 300 mg PO DAILY 09/25/22 apixaban 5 mg tablet (Eliquis) 5 mg PO BID 10/12/23 Previous Rx's ?Medication ?Instructions ?Recorded metoprolol tartrate 100 mg tablet 100 mg PO BID 30 days #60 tabs 08/13/21 lisinopril 20 mg tablet 20 mg PO BID #60 tabs 03/18/22 hydrochlorothiazide 25 mg tablet 25 mg PO QAM #30 tabs 03/19/22 loperamide 2 mg capsule 2 mg PO Q6H PRN loose stool #14 07/28/23 caps Enbrel SureClick 50 mg/mL (1 mL) 50 mg subcut QWEEK #4 mL 03/27/24 subcutaneous pen injector (etanercept) prednisone 5 mg tablet See Rx Instructions PO .COMPLEX 04/02/24 #21 tabs Allergies Allergy/AdvReac Type Severity Reaction Status Date / Time ciprofloxacin [From Cipro] Allergy Intermediate Rash Verified 04/07/24 23:46 codeine Allergy Intermediate rash Verified 04/07/24 23:46 Review of Systems Review of Systems: Constitutional : No Weight loss, No Fever, No Chills, No Night Sweats, No Fatigue, No Malaise ENT/Mouth : No Hearing loss, No Ear Pain, No Nasal Congestion, No Sinus Pain, No Hoarseness, No sore throat, No Rhinorrhea, No Swallowing Difficulty Eyes: No Eye Pain, No Swelling, No Redness, No Foreign Body, No Discharge, No Vision Changes Cardiovascular : No Chest Pain, No SOB, No Dyspnea on Exertion, No Orthopnea, No Edema, No Palpitations, complaining of a syncopal episode lasting a few seconds. Respiratory : No Cough, No Sputum, No Wheezing, No Smoke Exposure, No Dyspnea Gastrointestinal : No Nausea, No Vomiting, No Diarrhea, No Constipation, No abdominal Pain, No Hematochezia, No Melena Genitourinary : no irregular bleeding, No Dysuria, No Urinary Frequency, No Hematuria, No Urinary Incontinence, No Urgency, No Flank Pain, No Urinary Flow Changes, No Hesitancy Musculoskeletal : No joint pain, No Myalgias, No Joint Swelling Skin : No Skin Lesions, No rash Neuro : No Weakness, No Numbness, No Paresthesias, No Loss of Consciousness, No Dizziness, No Headache Psych : No Anxiety/Panic, No Depression, No SI/HI/AH/VH, No Social Issues, Heme/Lymph: No Bruising, No Bleeding,No Lymphadenopathy Endocrine : No Polyuria, No Polydipsia, No Temperature Intolerance PMFSH Past Medical History Medical History Osteopenia after menopause History of myocardial infarction Hypertension Long-term use of immunosuppressant medication Seropositive rheumatoid arthritis Family History Family History Father Heart problem Mother CHF (congestive heart failure) Social History Social History Household Members: Family Household Members Other:: and son Housing: House Are you a primary critical care transport nurse to a significant other at home: No Do you presently have visiting nurse or other home services: No Alcohol intake: never Patient Tobacco Use Status: Never used Tobacco Years Smoked: quit 30-40 years ago e-Cigarette/Vaping Use: Never Used Advance Directives: Yes Advance Directives on File: Yes Advance Directives Date on File: 08/11/21 service: No Current occupational status: employed 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 Oriented X3. No acute distress. Eyes: Pupils equal, round and reactive to light. ENT: Pharynx normal. Neck: Normal inspection. Neck supple. No lymph nodes noted. No crepitus CVS: Normal heart rate and rhythm. Pulses normal. Normal S1 and S2 Respiratory: No respiratory distress. Breath sounds normal. No Wheezing. No rales Abdomen: Soft and nontender. No rigidity. No distention. Skin: Skin warm and dry. Normal skin color. Normal skin turgor. Extremities: No lower extremity edema. No Lacerations. No Rash Neuro: Oriented X 3. No motor deficit. No sensory deficit. Moving all extremities. No slurred speech. CN 2 through 12 grossly intact Psych: calm, cooperative, normal affect Medical Decision Making Medical Decision Making MDM Narrative: My interpretation of labs, normal hematology, normal chemistry, troponin negative PT PTT INR within normal limit D-dimer negative, patient is on Eliquis and is compliant with the medications Orthostatic vitals negative I discussed the patient with Dr. De Santiago. Patient has syncopal episode with unknown reason. Patient has history of AFib and CHF. We will keep the patient for observation. 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 Patient remains asymptomatic. Differential Diagnosis Differential Diagnoses: The differential diagnosis associated with the presentation includes (Syncope, orthostatic hypotension, vasovagal syncope, cardiac arrhythmia) Admission/Observation Consideration of admission/observation: Escalation of care including admission/observation considered Consult Healthcare Provider Management of the patient was discussed with: Hospitalist Lab Data MDM Lab Attestation statement: I reviewed the patient's lab results. 04/07/24 22:50 04/07/24 22:50 Labs: Lab Results 04/07/24 04/08/24 Range/Units 22:50 02:31 WBC 6.1 (4.8-10.8) X10*3/uL RBC 4.08 L (4.20-5.50) X10*6/uL Hgb 13.0 (12.0-16.0) g/dl Hct 37.7 (37.0-47.0) % MCV 92.4 (80.0-98.0) fL MCH 31.9 (27.0-33.0) pg MCHC 34.5 (31.0-35.0) g/dl RDW 12.6 (11.0-16.0) % Plt Count 269 D (160-400) X10*3/uL MPV 10.4 (9.4-12.3) fL Immature Gran % (Auto) 0.3 (0.0-0.4) % Neut % (Auto) 54.9 (45-73) % Lymph % (Auto) 34.4 (20-40) % [place] % (Auto) 9.4 (2-11) % Eos % (Auto) 0.5 (0-4) % Baso % (Auto) 0.5 (0-2) % Lymph # (Auto) 2.1 (1.2-4.9) X10*3/uL [place] # (Auto) 0.6 (0.1-1.2) X10*3/uL Eos # (Auto) 0.0 (0.0-0.4) X10*3/uL Baso # (Auto) 0.0 (0.0-0.2) X10*3/uL Abs Immat Gran (auto) 0.02 (0.00-0.03) X10*3/uL Absolute Neuts (auto) 3.4 (2.0-8.3) x10*3/uL Absolute Nucleated RBC 0.000 (0.0-0.012) X10*3/uL Nucleated RBC % (auto) 0.0 (0.0-0.2) /100WBC PT 15.1 H (10.9-12.4) SEC INR 1.3 H (0.9-1.1) D-Dimer High Sensitivty < 150 NG/ML Sodium 138 (135-145) mmol/L Potassium 3.9 (3.3-5.1) mmol/L Chloride 104 (96-108) mmol/L Carbon Dioxide 27 (22-29) mmol/L Anion Gap 11 L (12-20) BUN 17 H (9-16) mg/dL Creatinine 0.77 (0.5-1.4) mg/dL Estim Creat Clear Calc TNP Estimated GFR > 60 Random Glucose 191 H (60-115) mg/dL Calcium 9.2 (8.4-10.2) mg/dL Magnesium 1.6 (1.6-2.6) mg/dL Total Bilirubin 1.2 H (0.0-1.0) mg/dL AST 27 (5-31) U/L ALT 21 (0-31) U/L Alkaline Phosphatase 88 (39-117) U/L Troponin I High Sens 4.4 (<3.5-17.0) ng/L Total Protein 7.3 (6.5-8.0) g/dL Albumin 3.6 (3.5-5.0) g/dL Independent Interpretation I performed an independent interpretation of an: EKG Interpretation: My interpretation of EKG: Normal sinus rhythm, heart rate 65, no ST segment depression or elevation, no T-wave inversion, QTC 411 Critical Care Time Critical Care Time Critical Care Time: Yes Total Critical Care Time: 35 Attestation: I have personally provided critical care time. Time includes review of lab data, radiology results, discussion with consultants, and monitoring for potential decompensation. Intervention performed as documented. Discharge Plan Discharge Clinical Impression: Syncope Patient Disposition: Admitted as Observation Prescriptions: No Action Enbrel SureClick 50 mg/mL (1 mL) pen injector 50 mg subcut QWEEK Qty: 4 2RF prednisone 5 mg tablet See Rx Instructions PO .COMPLEX Qty: 21 0RF Rx Instructions: Take 2 tabs daily for 1 week then 1 tab daily for 1 week then stop lisinopril 20 mg tablet 20 mg PO BID Qty: 60 0RF hydrochlorothiazide 25 mg tablet 25 mg PO QAM Qty: 30 0RF melatonin 3 mg Tablet 6 mg PO BEDTIME PRN (Reason: Sleep) metoprolol tartrate 100 mg tablet 100 mg PO BID 30 Days Qty: 60 0RF loperamide 2 mg capsule 2 mg PO Q6H PRN (Reason: loose stool) Qty: 14 0RF omeprazole 20 mg capsule,delayed release(DR/EC) 20 mg PO DAILY@0630 Centrum Silver 0.4 mg-300 mcg- 250 mcg tablet 1 tab PO DAILY acetaminophen [Tylenol 8 Hour] 650 mg tablet extended release 1,300 mg PO BID clobetasol 0.05 % cream 1 appl topical BID PRN (Reason: Itching) triamcinolone acetonide 0.05 % ointment 1 appl topical BID PRN (Reason: Itching) triamcinolone acetonide 0.1 % ointment topical Eliquis 5 mg tablet 5 mg PO BID gabapentin 300 mg capsule 300 mg PO DAILY amlodipine 5 mg tablet 5 mg PO DAILY Print Language: Taiwanese
--- NOTE | 2024-04-08 02:38 | PC.NURSE ---
Labs drawn and sent for analysis. Awaiting results. Orthostatic Vitals in progress at this time.
[2024-04-08 02:43] LABS: INTERNATIONAL NORM RATIO 1.3 (0.9-1.1); Prothrombin Time 15.1 SEC (10.9-12.4)
[2024-04-08 02:52] LABS: D Dimer High Sensitivity < 150 NG/ML
--- NOTE | 2024-04-08 04:51 | PC.NURSE ---
placed on quality assurance monitor, NSR. IV established in left AC. awaiting hospitalist admission orders.
--- NOTE | 2024-04-08 06:15 | P.HPHOSP_ITS ---
History of Present Illness Date of Service: 04/08/24 Attending physician on admission: Jordon De Santiago Chief Complaint: syncopal episode Patient is a 68-year-old female with a past medical history significant for history [place], HTN, RA on Enbrel, paroxysmal AFib on Eliquis s/p cardioversion x2, last 4 years ago with no episodes since, CHF with EF of 45% in 08/14, who presented to the ED yesterday due to a syncopal episode. She reports that she has been feeling fatigued for the past few days with some nausea but denies any congestion, sore throat, vomiting, fever, chills, cough or abdominal pain. She was sitting on his any urinary symptoms including dysuria frequency or urgency. He denies a headache or lightheadedness. Leading up to the syncopal episode she was sitting at a table organizing her medications. She denied any palpitations, chest pain or shortness of breath prior to the episode. She did not fall or hit her head. She does report urinating just prior to this episode. Review of Systems 2 Constitutional: Constitutional: Denies body ache(s), Denies chills, Reports fatigue, Denies fever(s) and Denies headache(s) Eyes: Eyes: Denies change in vision ENT: Denies headache(s), Denies nasal congestion, Denies nasal discharge and Denies sore throat Cardiovascular: Cardiovascular: Denies chest pain, Denies rapid heart rate, Denies leg edema, Denies lightheadedness and Denies dyspnea Respiratory: Respiratory: Denies chest congestion, Denies cough, Denies dyspnea and Denies wheezing Gastrointestinal: Gastrointestinal: Denies melena, Denies hematochezia, Denies constipation, Denies diarrhea, Reports nausea and Denies vomiting Genitourinary: Genitourinary: Denies dysuria and Denies urinary urgency Musculoskeletal: Musculoskeletal: Denies back pain and Denies myalgias Integumentary/Breasts: Skin/Breast: Denies rash Neurologic: Denies confusion, Denies headache(s) and Denies seizure-like activity Psychiatric: Psychiatric: Denies confusion Endocrine: Endocrine: Reports fatigue Hematologic/Lymphatic: Hematologic/Lymphatic: Denies easy bleeding and Denies easy bruising Allergic/Immunologic: Allergic/Immunologic: Denies wheezing [facility] Medical History Osteopenia after menopause History of myocardial infarction Hypertension Long-term use of immunosuppressant medication Seropositive rheumatoid arthritis Family History Father Heart problem Mother CHF (congestive heart failure) Social History Household Members: Family Household Members Other:: and son Housing: House Are you a primary acute care nurse practitioner to a significant other at home: No Do you presently have visiting nurse or other home services: No Alcohol intake: never Patient Tobacco Use Status: Never used Tobacco Years Smoked: quit 30-40 years ago e-Cigarette/Vaping Use: Never Used Advance Directives: Yes Advance Directives on File: Yes Advance Directives Date on File: 08/11/21 service: No Current occupational status: employed 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 Narrative: No smoking, alcohol or drug use Meds Allergies Allergy/AdvReac Type Severity Reaction Status Date / Time ciprofloxacin [From Cipro] Allergy Intermediate Rash Verified 04/07/24 23:46 codeine Allergy Intermediate rash Verified 04/07/24 23:46 Home Medications ?Medication ?Instructions ?Recorded ?Confirmed ?Last Taken ?Type acetaminophen 650 mg 1,300 mg PO BID 08/08/21 02/15/22 08/10/21 History tablet,extended release (Tylenol 8 Hour) clobetasol 0.05 % topical cream 1 appl topical BID PRN Itching 08/08/21 02/15/22 08/10/21 History lxjbqfoy-zha-nxytp acid 0.4 1 tab PO DAILY 08/08/21 02/15/22 08/10/21 History mg-lycopene 300 mcg-lutein 250 mcg tablet (Centrum Silver) omeprazole 20 mg capsule,delayed 20 mg PO DAILY@0630 08/08/21 02/15/22 08/10/21 History release triamcinolone acetonide 0.05 % 1 appl topical BID PRN Itching 08/08/21 02/15/22 08/10/21 History topical ointment melatonin 3 mg tablet 6 mg PO BEDTIME PRN Sleep 08/11/21 02/15/22 08/10/21 History triamcinolone acetonide 0.1 % topical 02/15/22 02/15/22 Unknown History topical ointment amlodipine 5 mg tablet 5 mg PO DAILY 09/25/22 Unknown History gabapentin 300 mg capsule 300 mg PO DAILY 09/25/22 Unknown History apixaban 5 mg tablet (Eliquis) 5 mg PO BID 10/12/23 Unknown History Physical Exam 2 Vital Signs and Narrative: Vital Signs: Last Vital Signs Temp 98.3 F 04/08/24 04:04 Pulse 57 04/08/24 04:04 Resp 16 04/08/24 04:04 BP 136/83 04/08/24 04:04 Pulse Ox 97 04/08/24 05:14 O2 Del Method Room Air 04/08/24 05:14 BMI result Body Mass Index 29.0 General: AOx3, no acute distress Resp: CTA bilaterally, no wheezing or crackles CVS: mild bradycardia, normal rhythm, no murmur GI: +BS, NT, no distention Skin: Warm, dry Neuro: Cranial nerves II-XII grossly intact bilaterally. Motor grossly intact bilaterally Extremities: No LE edema Psych: Appropriate affect Const: General: No confusion Orientation/consciousness: No confusion Neuro: General: No confusion Results Labs 04/07/24 22:50 04/07/24 22:50 Labs: Laboratory Results - last 24 hr 04/07/24 04/08/24 22:50 02:31 MCV 92.4 MCH 31.9 MCHC 34.5 RDW 12.6 Plt Count 269 D MPV 10.4 Immature Gran % (Auto) 0.3 Neut % (Auto) 54.9 Lymph % (Auto) 34.4 [place] % (Auto) 9.4 Eos % (Auto) 0.5 Baso % (Auto) 0.5 Lymph # (Auto) 2.1 [place] # (Auto) 0.6 Eos # (Auto) 0.0 Baso # (Auto) 0.0 Abs Immat Gran (auto) 0.02 Absolute Neuts (auto) 3.4 Absolute Nucleated RBC 0.000 Nucleated RBC % (auto) 0.0 PT 15.1 H INR 1.3 H D-Dimer High Sensitivty < 150 Anion Gap 11 L Estim Creat Clear Calc TNP Estimated GFR > 60 Random Glucose 191 H Calcium 9.2 Magnesium 1.6 Total Bilirubin 1.2 H AST 27 ALT 21 Alkaline Phosphatase 88 Troponin I High Sens 4.4 Total Protein 7.3 Albumin 3.6 Assessment and Plan (1) Syncope: Status: Acute Plan Patient is a 68-year-old female with a past medical history significant for history [place], HTN, RA on Enbrel, paroxysmal AFib on Eliquis s/p cardioversion x2, last 4 years ago with no episodes since, CHF with EF of 45% in 08/14, who presented to the ED yesterday due to a syncopal episode. syncope ?vasovagal - WBC normal, vitals stable, no sepsis - EKG with NSR - Trop negative - D-dimer negative - orthostatics negative - no LE edema, orthopnea, or cough suggestive of fluid overload - cardiology consult - appreciate cardiology input regarding repeat echo - add COIVD/flu/RSV testing due to fatigue - admit for obs HTN - hold BP meds as BP soft, may be over medicated paroxysmal a fib - s/p cardioversion x2, last 3-4 years ago - EKG with NSR - continue eliquis CHF, no acute exacerbation - no signs of fluid overload RA - on enbrel and prednisone for recent flare, continue taper full code VTE prophy: eliquis Patient with syncopal episode, requiring admission for observation for further workup and monitoring. Quality Stroke Does the patient have a stroke diagnosis?: No VTE Prior VTE?: No VTE Risk Level:: Medical - moderate - high VTE Device Contraindication: Treatment Not Indicated VTE Drug Contraindication: N/A - Med Ordered
--- NOTE | 2024-04-08 08:58 | PHA.MEDREC ---
Addendum entered by Sonja Garcia shae 04/08/24 09:47: med rec reviewed by pharmacist Original Note: Pharmacy Consult ? Medication Reconciliation Pharmacy has completed the medication reconciliation. Spoke to patient to confirm med list. Patient states she no longer takes HCTZ 12.5 mg, and Melatonin 6 mg. Patient confirmed Enbrel SureClick 50 mg every Sunday, last dose was 04/06/24. Patient says she is on day 6 of Prednisone taper ( 2 tabs daily X7 days, 1 tab daily X7 days) today she need 2 tabs then tomorrow she starts 1 tab daily.
[2024-04-08] MEDS: 0.9 % Sodium Chloride Flush 3 ML SYRINGE IVFLUSH (09:18)
[2024-04-08] MEDS: Apixaban 5 MG TABLET PO (09:18)
--- NOTE | 2024-04-08 09:34 | PM.DS ---
DS: Providers Provider Date of Service: 04/08/24 Date of admission: 04/08/24 06:14 Date of discharge: 04/08/24 Primary care physician: Artemio Pearce MD Consults: 04/08/24 06:14 Consult to Cardiology Routine Consulting Provider: [facility] Reason for consultation: syncope Has provider been notified: Yes DS: Diagnosis Discharge Diagnosis (1) Syncope: Status: Acute DS: Summary Hospital Course Hospital Course: admission hpi Chief Complaint: syncopal episode Patient is a 68-year-old female with a past medical history significant for history [place], HTN, RA on Enbrel, paroxysmal AFib on Eliquis s/p cardioversion x2, last 4 years ago with no episodes since, CHF with EF of 45% in 08/14, who presented to the ED yesterday due to a syncopal episode. She reports that she has been feeling fatigued for the past few days with some nausea but denies any congestion, sore throat, vomiting, fever, chills, cough or abdominal pain. She was sitting on his any urinary symptoms including dysuria frequency or urgency. He denies a headache or lightheadedness. Leading up to the syncopal episode she was sitting at a table organizing her medications. She denied any palpitations, chest pain or shortness of breath prior to the episode. She did not fall or hit her head. She does report urinating just prior to this episode. hospital course: The patient presented with a syncopal episode as described above. Workup, including ECG and cardiac enzymes, was unremarkable. No arrhythmia was noted on the monitor, and orthostatic vitals were negative. The patient's symptoms are likely due to blood pressure meds, specifically Lisiniopril 20 bid, no changing to 10 mg daily, Metoprolol 100 mg twice daily, changing to 50 mg twice daily. She's walking around without symptoms. Syncope likely related to blood pressure medicines Time Attestation Discharge Coordination Time (in mins): 35 Quality: Safe Use of Opioids Does Pt have an Active Cancer Diagnosis on the Problem List?: No Quality: Stroke Does the patient have a stroke diagnosis?: No Physical Exam Vital Signs: Vital Signs: Last Vital Signs Temp 97.6 F 04/08/24 09:10 Pulse 65 04/08/24 09:10 Resp 16 04/08/24 09:10 BP 119/62 04/08/24 09:10 Pulse Ox 99 04/08/24 09:10 O2 Del Method Room Air 04/08/24 09:10 BMI result Body Mass Index 29.0 General: AO X 3, no acute distress Resp: CTA bilateral CVS: S1,S2,RRR GI: +BS, NT, no distention Skin: No rash Neuro: motor grossly intact Psych: appropriate affect DS: Data Data Completed and Pending Labs on day of discharge: Laboratory Results - last 24 hr 04/07/24 04/08/24 22:50 02:31 WBC 6.1 RBC 4.08 L Hgb 13.0 Hct 37.7 MCV 92.4 MCH 31.9 MCHC 34.5 RDW 12.6 Plt Count 269 D MPV 10.4 Immature Gran % (Auto) 0.3 Neut % (Auto) 54.9 Lymph % (Auto) 34.4 [place] % (Auto) 9.4 Eos % (Auto) 0.5 Baso % (Auto) 0.5 Lymph # (Auto) 2.1 [place] # (Auto) 0.6 Eos # (Auto) 0.0 Baso # (Auto) 0.0 Abs Immat Gran (auto) 0.02 Absolute Neuts (auto) 3.4 Absolute Nucleated RBC 0.000 Nucleated RBC % (auto) 0.0 PT 15.1 H INR 1.3 H D-Dimer High Sensitivty < 150 Sodium 138 Potassium 3.9 Chloride 104 Carbon Dioxide 27 Anion Gap 11 L BUN 17 H Creatinine 0.77 Estim Creat Clear Calc TNP Estimated GFR > 60 Random Glucose 191 H Calcium 9.2 Magnesium 1.6 Total Bilirubin 1.2 H AST 27 ALT 21 Alkaline Phosphatase 88 Troponin I High Sens 4.4 Total Protein 7.3 Albumin 3.6 Discharge Plan Discharge Anticipated Discharge Date/Time: 04/08/24 09:32 Patient Disposition: Home, Self-Care Discharge Diagnosis: syncope Referrals: Artemio Pearce MD [Primary Care Provider] - 1 Week Discharge Medications: New metoprolol tartrate 50 mg tablet 50 mg PO BID Qty: 60 0RF lisinopril 10 mg Tablet 10 mg PO DAILY Qty: 90 0RF Protocol: Hold for SBP< HOLD for SBP < : 90 Continued prednisone 5 mg tablet See Taper PO DAILY Taper: Prednisone 10 mg daily for 1 Day and 0 Hour 5 mg daily for 7 Days Rx Instructions: Take 2 tabs daily for 1 week then 1 tab daily for 1 week then stop Enbrel SureClick 50 mg/mL (1 mL) pen injector 50 mg subcut KEENAN omeprazole 20 mg capsule,delayed release(DR/EC) 20 mg PO DAILY@0630 Centrum Silver 0.4 mg-300 mcg- 250 mcg tablet 1 tab PO DAILY acetaminophen [Tylenol 8 Hour] 650 mg tablet extended release 1,300 mg PO BID PRN (Reason: Fever Or Pain) triamcinolone acetonide 0.1 % ointment 1 appl topical BID PRN (Reason: Rash) Eliquis 5 mg tablet 5 mg PO BID Discontinued lisinopril 20 mg tablet 20 mg PO BID Qty: 60 0RF metoprolol tartrate 100 mg tablet 100 mg PO BID 30 Days Qty: 60 0RF amlodipine 5 mg tablet 2.5 mg PO DAILY Discharge Orders: Discharge Order (Routine); Ordered 04/08/24 Ordered By: Everett Lopez Diet: Advance to usual diet Activity on Discharge: Use Splints or Immobilizers Stand Alone Forms: Patient Portal Discharge page Print Language: Kinyarwanda Care Plan Goals: recovery from syncope Health Concerns: syncope Plan of Treatment: stay well hydrated follow up with your doctor in a week avoid driving, or operating machinery within next week stop taking Norvasc Lisinopril changed to 10 mg daily Metoprolol changed to 50 mg twice daily Assessment: see above
[2024-04-08 10:03] LABS: Influenza A PCR NEGATIVE (Negative); Influenza B PCR NEGATIVE (Negative); Resp Syncy Virus RNA Qual PCR NEGATIVE (Negative); SARS COV2 PCR INHOUSE NEGATIVE (Negative)
[2024-04-08 11:29] LABS: Glucose, Whole Blood 194 mg/dL (60-115)
--- NOTE | 2024-04-08 11:29 | MHC.CM.PN ---
CM met with Patient at bedside in the ED, and addressed GORDON with her, providing Patient with the original and a copy will be placed on the chart. Patient lives in a house with her and she required no services nor DME IMPORT COORDINATION AND PR[employer]. Home/self care is the goal and CM has initiated and will follow for dc planning. PCP is part of Dr. Pearce's practice (she was unsure of name) and will transport to home. Daughter/Chanel is the HCP.
[2024-04-08] MEDS: Multivitamin TABLET 1 TAB PO (11:33)
--- NOTE | 2024-04-08 14:01 | P.CONCA_ITS ---
History of Present Illness History of Present Illness Date of Service: 04/08/24 Requesting physician: Everett Lopez Chief complaint: Syncope Narrative: [age] year female who has known history of mild cardiomyopathy and follows with Dr. Turk at [facility]. She is presenting with few 2nd episode of losing consciousness. This is quite questionable. She said all day she was feeling somewhat down and foggy. She previously had low blood pressure and her medications were adjusted. She said she was sitting down and then she may have passed out for few seconds. Story is quite unclear. She said she checked her blood pressure at home it was 90 / 39. Denying any chest discomfort shortness of breath. Clinically not in heart failure. [facility] Past Medical History Medical History Osteopenia after menopause History of myocardial infarction Hypertension Long-term use of immunosuppressant medication Seropositive rheumatoid arthritis Family History Family History Father Heart problem Mother CHF (congestive heart failure) Social History Social History Household Members: Family Household Members Other:: and son Both parents involved: No Caregiver staying overnight: No Housing: House Are you a primary foster care case manager to a significant other at home: No Do you presently have visiting nurse or other home services: No 75 years or older and lives alone: No Alcohol intake: never Patient Tobacco Use Status: Never used Tobacco Years Smoked: quit 30-40 years ago e-Cigarette/Vaping Use: Never Used Advance Directives Date on File: 08/11/21 service: No Current occupational status: employed 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 Meds Allergies Allergy/AdvReac Type Severity Reaction Status Date / Time ciprofloxacin [From Cipro] Allergy Intermediate Rash Verified 04/07/24 23:46 codeine Allergy Intermediate rash Verified 04/07/24 23:46 Active Medications: Current Medications Acetaminophen (Acetaminophen 325 Mg Tablet) 650 mg PO Q6H PRN PRN Reason: Pain, Mild 1-3,fever,headache Amlodipine Besylate (Amlodipine Besylate 2.5 Mg Tablet) 2.5 mg PO DAILY RONEL; Protocol Last Admin: 04/08/24 11:34 Dose: Not Given Apixaban (Apixaban 5 Mg Tablet) 5 mg PO BID RONEL Last Admin: 04/08/24 09:18 Dose: 5 mg Calcium Carbonate (Calcium Carbonate 750 Mg Tab.Chew) 750 mg PO Q4H PRN PRN Reason: Heartburn Lisinopril (Lisinopril 10 Mg Tablet) 10 mg PO DAILY [facility]; Protocol Magnesium Hydroxide (Milk Of Magnesia 30 Ml Oral.Susp) 30 ml PO DAILY PRN PRN Reason: Constipation Melatonin (Melatonin 3 Mg Tablet) 6 mg PO BEDTIME PRN PRN Reason: Insomnia Metoprolol Tartrate (Metoprolol Tartrate 50 Mg Tablet) 50 mg PO BID [facility]; Protocol Last Admin: 04/08/24 11:34 Dose: Not Given Multivitamins/Vitamin C (Multivitamin Tablet) 1 tab PO DAILY [facility] Last Admin: 04/08/24 11:33 Dose: 1 tab Omeprazole (Omeprazole 20 Mg Capsule.Dr) 20 mg PO DAILY@06 [facility] Last Admin: 04/08/24 11:35 Dose: Not Given Ondansetron HCl (Ondansetron Hcl 4 Mg/2 Ml Vial) 4 mg IVPUSH Q8H PRN PRN Reason: Nausea and Vomiting Prednisone (Prednisone 5 Mg Tablet) 10 mg PO DAILY [facility]; Taper Stop: 04/17/24 08:59 Sodium Chloride (0.9 % Sodium Chloride Flush 3 Ml Syringe) 3 ml IVFLUSH QSHIFT [facility] Last Admin: 04/08/24 09:18 Dose: 3 ml Triamcinolone Acetonide (Triamcinolone Acet 0.1 % Oint 15 Gm Tube) 1 appl TOPICAL BID PRN PRN Reason: Rash Home Medications ?Medication ?Instructions ?Recorded ?Confirmed ?Last Taken ?Type acetaminophen 650 mg 1,300 mg PO BID PRN Fever Or Pain 08/08/21 04/08/24 08/10/21 History tablet,extended release (Tylenol 8 Hour) bragvfpa-hms-zituj acid 0.4 1 tab PO DAILY 08/08/21 04/08/24 04/07/24 History mg-lycopene 300 mcg-lutein 250 mcg tablet (Centrum Silver) omeprazole 20 mg capsule,delayed 20 mg PO DAILY@0630 08/08/21 04/08/24 04/07/24 History release triamcinolone acetonide 0.1 % 1 appl topical BID PRN Rash 02/15/22 04/08/24 Unknown History topical ointment apixaban 5 mg tablet (Eliquis) 5 mg PO BID 10/12/23 04/08/24 04/07/24 History etanercept 50 mg/mL (1 mL) 50 mg subcut KEENAN 04/08/24 04/08/24 04/06/24 History subcutaneous pen injector (Enbrel SureClick) prednisone 5 mg tablet See Taper PO DAILY 04/08/24 04/08/24 04/07/24 History Physical Exam 2 Vital Signs: Vital Signs: Last Vital Signs Temp 98.0 F 04/08/24 13:57 Pulse 70 04/08/24 13:57 Resp 16 04/08/24 13:57 BP 131/64 04/08/24 13:57 Pulse Ox 97 04/08/24 13:57 O2 Del Method Room Air 04/08/24 13:57 BMI result Body Mass Index 29.0 GENERAL APPEARANCE: in no acute distress, pleasant. NECK: no carotid bruit, no jugular venous distention. SKIN: no suspicious lesions, warm and dry. HEART: no murmurs, regular rate and rhythm. LUNGS: clear to auscultation bilaterally. ABDOMEN: soft, nontender. EXTREMITIES: no edema. PERIPHERAL PULSES: equal. NEUROLOGIC: No gross deficits, AAO X 3 Objective Labs and Meds 04/07/24 22:50 04/07/24 22:50 Lab results: Laboratory Results - last 24 hr 04/07/24 04/07/24 04/08/24 22:50 22:55 02:31 WBC 6.1 RBC 4.08 L Hgb 13.0 Hct 37.7 MCV 92.4 MCH 31.9 MCHC 34.5 RDW 12.6 Plt Count 269 D MPV 10.4 Immature Gran % (Auto) 0.3 Neut % (Auto) 54.9 Lymph % (Auto) 34.4 [place] % (Auto) 9.4 Eos % (Auto) 0.5 Baso % (Auto) 0.5 Lymph # (Auto) 2.1 [place] # (Auto) 0.6 Eos # (Auto) 0.0 Baso # (Auto) 0.0 Abs Immat Gran (auto) 0.02 Absolute Neuts (auto) 3.4 Absolute Nucleated RBC 0.000 Nucleated RBC % (auto) 0.0 PT 15.1 H INR 1.3 H D-Dimer High Sensitivty < 150 Sodium 138 Potassium 3.9 Chloride 104 Carbon Dioxide 27 Anion Gap 11 L BUN 17 H Creatinine 0.77 Estim Creat Clear Calc TNP Estimated GFR > 60 POC Glucose 194 H Random Glucose 191 H Calcium 9.2 Magnesium 1.6 Total Bilirubin 1.2 H AST 27 ALT 21 Alkaline Phosphatase 88 Troponin I High Sens 4.4 Total Protein 7.3 Albumin 3.6 Influenza Type A (PCR) Influenza Type B (PCR) RSV RNA Qual (PCR) SARS-CoV-2 RNA (RT-PCR) 04/08/24 09:08 WBC RBC Hgb Hct MCV MCH MCHC RDW Plt Count MPV Immature Gran % (Auto) Neut % (Auto) Lymph % (Auto) [place] % (Auto) Eos % (Auto) Baso % (Auto) Lymph # (Auto) [place] # (Auto) Eos # (Auto) Baso # (Auto) Abs Immat Gran (auto) Absolute Neuts (auto) Absolute Nucleated RBC Nucleated RBC % (auto) PT INR D-Dimer High Sensitivty Sodium Potassium Chloride Carbon Dioxide Anion Gap BUN Creatinine Estim Creat Clear Calc Estimated GFR POC Glucose Random Glucose Calcium Magnesium Total Bilirubin AST ALT Alkaline Phosphatase Troponin I High Sens Total Protein Albumin Influenza Type A (PCR) NEGATIVE Influenza Type B (PCR) NEGATIVE RSV RNA Qual (PCR) NEGATIVE SARS-CoV-2 RNA (RT-PCR) NEGATIVE Assessment and Plan (1) Syncope: Status: Acute (2) Essential hypertension: Status: Acute Plan Pleasant 68 year female with history of paroxysmal atrial fibrillation status post cardioversion in the past for which she has been on apixaban therapy presenting for feeling tired and weak in the setting of low blood pressure. It is unclear whether she actually passed out or not she is saying she may have lost consciousness while sitting in a chair for few seconds. In any case her blood pressure was low at home and was low on admission. Her blood pressure medications were adjusted recently due to low blood pressures. Agree with decreasing the lisinopril and metoprolol. She will follow-up with Dr. Turk. Thank you for allowing me to participate in the care of your patient. Please feel free to contact me if you have any questions. Procedures Date of Service Date of Service: 04/08/24
--- NOTE | 2024-04-08 14:41 | MHC.CM.PN ---
Patient has been medically cleared for dc to home today, self care.
== END 2024-04-08 15:08 | disposition home or self-care (01) ==
LOC: HO.ED 04-08 04:00 → HO.EDOVER 04-08 06:20
PROVIDERS: Physician Assistant; Admitting Provider Student in an Organized Health Care Education/Training Program; Emergency Provider Emergency Medicine; PCP Internal Medicine; Visit Provider Internal Medicine
DX: R55 Syncope and collapse (principal); M05.9 Rheumatoid arthritis with rheumatoid factor, unspecified; I25.2 Old myocardial infarction; I48.0 Paroxysmal atrial fibrillation; I11.0 Hypertensive heart disease with heart failure; I50.9 Heart failure, unspecified; I42.9 Cardiomyopathy, unspecified; Z03.818 Encounter for observation for suspected exposure to other biological agents ruled out; Z79.899 Other long term (current) drug therapy; Z79.01 Long term (current) use of anticoagulants
CPT/HCPCS: 0241U; 36415; 80053; 82947; 83735; 84484; 85025; 85379; 85610; 93005; 99222; 99285

== ENCOUNTER → 2024-04-07 22:45 | Outpatient (BNV) | payer OTHER, SELFPAY | PROVIDERS: Admitting Provider Student in an Organized Health Care Education/Training Program; Emergency Provider Emergency Medicine; PCP Internal Medicine; Visit Provider Internal Medicine Cardiovascular Disease | DX: R55 Syncope and collapse (principal) | CPT/HCPCS: 93010 ==

== ENCOUNTER → 2024-04-08 06:14 | Outpatient (BNV) | payer OTHER, SELFPAY | PROVIDERS: Admitting Provider Student in an Organized Health Care Education/Training Program; Emergency Provider Emergency Medicine; Visit Provider Physician Assistant | DX: R55 Syncope and collapse (principal) | CPT/HCPCS: 99223 ==

== ENCOUNTER → 2024-04-08 06:14 | Outpatient (BNV) | payer OTHER, SELFPAY | PROVIDERS: Admitting Provider Student in an Organized Health Care Education/Training Program; Emergency Provider Emergency Medicine; PCP Internal Medicine; Visit Provider Internal Medicine Cardiovascular Disease | DX: R55 Syncope and collapse (principal); I10 Essential (primary) hypertension | CPT/HCPCS: 99222 ==

== ENCOUNTER 2024-08-04 11:19 | Outpatient (REF) | payer OTHER, SELFPAY ==
--- OUTSIDE RECORDS SUMMARY | 2024-08-04 12:12 | XMS_ITS | Clinical Summary ---
Author Organization [facility] [employer] [facility] Address [address] [facility] [place] [address] Phone Care Team Providers Care Gis Analyst Name Role Phone Jm Blue MD Primary Care Provider Allergies Active Allergy Reactions Criticality Noted Date Comments Ciprofloxacin Hcl Nausea Only 02/18/2024 Codeine 12/08/2005 Hydrocortisone 12/10/2020 Medications calcium carbonate-zakiya calciferol (Oyster Shell Calcium-Vit D3) 500 mg-10 mcg (400 unit) per tablet TAKE ONE TABLET BY MOUTH TWICE A DAY 4 Active multivitamin with minerals (CENTRUM) tablet Take by mouth daily. Active acetaminophen (TYLENOL) 500 mg tablet Take 500 mg by mouth as needed. Active clotrimazole-be tamethasone (LOTRISONE) lotion Apply 1 Dose topically 2 times daily for 14 days. 4 Active etanercept (EnbreL SureClick) 50 mg/mL (1 mL) injection pen Inject 50 mg as directed every 7 days. 1 Active hydrOXYzine HCL (ATARAX) 10 mg tablet Take 1 Tablet by mouth at bedtime for 7 days, THEN 2 Tablets at bedtime for 360 days. 4 Active omeprazole (PriLOSEC) [address] capsule Take 1 capsule (20 mg total) by mouth 1 (one) time each day. 4 Active clobetasoL (TEMOVATE) 0.05 % cream APPLY SPARINGLY TO AFFECTED AREA(S) TWO TIMES A DAY NEEDED Active Eliquis 5 mg tablet TAKE ONE TABLET BY MOUTH TWICE A DAY 180 tablet 3 5 Active lisinopriL (PRINIVIL,ZESTR IL) 10 mg tablet TAKE ONE TABLET BY MOUTH EVERY DAY 90 tablet 1 5 Active metoprolol tartrate (LOPRESSOR) 50 mg tablet TAKE ONE TABLET BY MOUTH TWICE A DAY 180 tablet 1 5 Active Active Problems Problem Noted Date Diagnosed Date Mixed hyperlipidemia 06/17/2024 Assessment & Plan (06/17/2024 2:49 PM EDT): Patient's last LDL cholesterol was 81. This is above the goal of less than 70. Lipids were last checked in 2022 I will order an updated lipid panel. Syncope 04/10/2024 Assessment & Plan (06/17/2024 2:49 PM EDT): Patient denies any recurrent syncope. She is due to have an echocardiogram repeated as ordered last office visit. This will be arranged for later this week. Assessment & Plan (04/10/2024 1:16 PM EST): Appears she was admitted to [facility] with episode of syncope that occurred while sitting at the kitchen table doing her weekly pills. She had no warning simply passed out. No trauma is not quite clear to me what took place at home she did go to the hospital immediately her daughter finally talked her into it when she arrived there supposedly she had low blood pressure but I have no records to evaluate. Her metoprolol and lisinopril were decreased. She was discharged after being held for a day over the weekend with no testing. And set up the patient for a 14-day R OCT monitor. And we will set up an echocardiogram. Have asked her to stop taking her lisinopril altogether and let her pressure come up should be back to see me after the testing is done and we may need to adjust medical therapy. On exam there is no evidence of orthostasis Orders: Cardiac event monitor; Future Transthoracic echocardiogram (TTE) complete with PRN contrast, bubble, strain, and 3D order panel; Future DJD (degenerative joint disease) 02/18/2024 Osteopenia 02/18/2024 Seropositive rheumatoid arth ritis ([facility] V24, CMS/[facility] V28) 02/18/2024 Vitamin D deficiency 02/18/2024 HFrEF (heart failure with re duced ejection fraction) ([facility] V24, [facility] V28) 03/21/2023 Overview (02/11/2024): Last Assessment & Plan: Patient has mild HFrEF. Possibly secondary to A-fib. Nuclear stress testing in the past has been negative for ischemia even in the setting of fixed defects identified on echocardiography. Our plan is to repeat the echocardiogram in 6 months she denies any chest pain or pressure or discomfort. I do not plan on sending her for another stress test at this time she is asymptomatic from a coronary standpoint. CAD (coronary artery disease) 12/12/2022 Overview (02/11/2024): Last Assessment & Plan: She has a history of silent anterior CA. Stress echocardiogram completed 09/05/2022 that was unrevealing for any ischemic changes with her size and a normal resting echo with preserved EF and no regional wall motion abnormalities. She offers no new or concerning symptoms. Her LDL is at goal off statin. She is a former smoker and was encouraged to remain abstinent. We will continue with beta-nicko as ordered, the patient current medical therapies. Patient advised to seek emergency medical attention by calling 911 if they were to develop severe dyspnea, chest pain that did not resolve with rest, or if they were to faint. Assessment & Plan (06/17/2024 2:49 PM EDT): Patient has history of coronary artery disease as noted on previous echocardiogram and nuclear stress testing. She denies any exertional anginal symptoms. She continues On beta-nicko for cardioprotection. I have reviewed with the patient the importance of a heart healthy lifestyle which includes eating a low-fat low-salt diet, getting regular exercise, maintaining a healthy weight, not smoking, and following up with routine medical care. ANKUR on CPAP 10/03/2021 Overview (02/11/2024): Last Assessment & Plan: Patient reports compliance with CPAP and is aware of the importance of this given her history of atrial fibrillation. Atrial fibrillation ([facility] V24, [facility] V28) 0 08/18/2021 Overview (02/11/2024): Last Assessment & Plan: Patient has had periods of paroxysmal atrial fibrillation. No recent episodes symptomatically. Patient has a CHADS2 score of 4 and because of that I have left her on chronic anticoagulation. Should she have breakthrough she will be cardioverted in the emergency room fairly quickly Assessment & Plan (06/17/2024 2:49 PM EDT): Patient has history of paroxysmal atrial fibrillation status post cardioversions in the past. Recent cardiac monitoring did not reveal any recurrent atrial fibrillation. She continues on anticoagulation with Eliquis given her elevated [id number] score of 4 representing a 4.8% risk for thromboembolism. She will continue on metoprolol 50 mg twice daily. Assessment & Plan (04/10/2024 1:16 PM EST): History of A-fib CHADS2 score of 4 remains anticoagulated. No symptomatic breakthrough no indication that the syncopal episodes are due to prolonged SNRT Heartburn 06/21/2018 HTN (hypertension) 10/18/2012 Overview (02/11/2024): Last Assessment & Plan: Patient's blood pressure is 104/74 today; she has endorsed rare and quickly resolving lightheadedness but also daily fatigue that she feels has improved since cardioversion/resolution of atrial fibrillation however remains persistent. The symptoms may be related to her blood pressure, and she would like to try decreasing amlodipine to see if this improves her symptoms and energy level. She reports she is currently taking 5 mg daily, she will try cutting the amlodipine back to 2.5 mg daily. She does have a blood pressure cuff at home, and will monitor her blood pressure there, contacting the office for any further questions or concerns. She was encouraged to bring her blood pressure cuff with her to her next appointment to correlate with in office blood pressure values to ensure it is functioning properly. No function from 09/2022 was within normal limits. She has follow-up planned with Dr. Turk for 01/2023 and will call sooner as needed. She was encouraged to follow a low-salt diet and increase activity as tolerated. Assessment & Plan (06/17/2024 2:49 PM EDT): Patient's blood pressure is elevated today with a reading of 140/90. Home blood pressure readings are much better. Previous office visits also indicated controlled blood pressure readings. At this time she will continue to monitor her blood pressures at home and continue with lisinopril as prescribed. Allergic rhinitis 01/10/2006 Depression 12/08/2005 Resolved Problems Problem Noted Date Diagnosed Date Resolved Date Hypomagnesemia 05/28/2024 06/17/2024 Right-sided headache 05/28/2024 025 Abnormal echocardiogram 02/18/202405/25 Allergic rhinitis 02/18/2024 06/17/2024 Anterior myocardial infarcti on ([facility] V24, [facility] V28) 02/18/2024 06/17/2024 Apnea 02/18/2024 06/17/2024 Atrial fibrillation (CMS/HCC V24, CMS/[facility] V28) 02/18/2024 06/17/2024 CAD (coronary artery disease) 02/18/2024 06/17/2024 Depression 02/18/2024 06/17/2024 Difficulty breathing 02/18/2024 025 Fatigue 02/18/2024 06/17/2024 H. pylori infection 02/18/2024 06/18/19 Heartburn 02/18/2024 06/17/2024 Hematuria 02/18/2024 06/17/2024 HFrEF (heart failure with re duced ejection fraction) ([facility] V24, [facility] V28) 02/18/2024 HTN (hypertension) 02/18/2024 Lightheadedness 02/18/2024 06/17/2024 ANKUR on CPAP 02/18/2024 06/17/2024 Peripheral edema 02/18/2024 06/17/2024 Shortness of breath on exertion 02/18/2024 06/17/2024 Fatigue 12/12/2022 06/17/2024 Lightheadedness 12/12/2022 06/17/2024 Peripheral edema 12/12/2022 06/17/2024 Overview (02/11/2024): Last Assessment & Plan: Patient has lower extremity edema right greater than left. Most likely secondary to orthopedic issues. No evidence of congestive heart failure on exam. I have recommended that she purchase elastic stockings for support knee-high's to try to diminish the peripheral edema identified. Difficulty breathing 04/05/2022 025 Apnea 08/23/2021 06/17/2024 Osteopenia 08/04/2021 06/17/2024 Anterior myocardial infarcti on ([facility] V24, [facility] V28) 12/10/2020 06/17/2024 Overview (02/11/2024): Last Assessment & Plan: Patient with vague chest symptoms. Possibly ischemic previous myocardial infarction that was silent. Patient be sent for stress echocardiogram to assess for underlying progressive ischemic disease Abnormal echocardiogram 12/08/202005/25 Shortness of breath on exertion 12/08/2020 06/17/2024 DJD (degenerative joint disease) 09/12/2017 06/17/2024 Seropositive rheumatoid arth ritis ([facility] V24, [facility] V28) 10/14/2012 06/17/2024 Overview (02/11/2024): Onset 2011,RF positive. Hydroxychloroquine started 08/05. Methotrexate added July 2013. Enbrel started June 2014 - tried for about 4 months but stopped because of anxiety, lightheadedness, and fatigue. 2014: sulfasalazine added to methotrexate; hydroychloroquine and sulfasalazine stopped because of GI side effects in April 2015 Enbrel restarted 06/08 - added to methotrexate and hydoxychloroquine; hydroxychloroquine discontinued March 2016 as it wasn't needed. December 2017: Methotrexate stopped, patient noncompliant with lab work. Enbrel continued. H. pylori infection 05/03/2012 06/18/19 25 Vitamin D deficiency 08/09/2011 025 Hematuria 11/23/2009 06/17/2024 Overview (02/11/2024): Cysto reportedly negative X 2 Encounters Date Type Department Care Team Description 06/19/2024 3:00 PM EDT Ancillary Procedure [facility] Cardiology [facility] [address] [place] [id number] 06/17/2024 2:10 PM EDT Office Visit [facility] Cardiology [address] [place] [phone] Merced Velasquez NP Coronary artery disease involving telida coronary artery of telida heart without angina pectoris (Primary Dx); Atrial fibrillation, unspecified type ([facility] V24, [facility] V28); Primary hypertension; Syncope, unspecified syncope type; Mixed hyperlipidemia 05/28/2024 2:30 PM EST Office Visit [address] [phone] Jm Blue MD Primary hypertension (Primary Dx); HFrEF (heart failure with reduced ejection fraction) ([facility] V24, [facility] V28); Coronary artery disease due to lipid rich plaque; Paroxysmal atrial fibrillation ([facility] V24, [facility] V28); ANKUR on CPAP; Seropositive rheumatoid arthritis ([facility] V24, [facility] V28); Osteopenia, unspecified location; Hypomagnesemia; Right-sided headache; Encounter for osteoporosis screening in asymptomatic postmenopausal patient from Last 3 Months Immunizations Name Administration Dates Next Due Influenza Quadravalent, MDCK , 0.5ml, preservative free (Flucelvax) 6mo and older 01/09/2019 Influenza trivalent, 0.5mL ( Fluad) 65yo and older 12/20/2022,01/04/2021 Influenza trivalent, 0.5mL, preservative free (Fluarix; FluLaval; Fluzone) ages 6mo and older (Afluria) 3 years and older 12/31/2015,12/29/2014,01/27/2014,12/04,12/29/2010,12/09/2009 Influenza, Unspecified 12/20/2022,01/04/2021, [facility] SARS-CoV-2 COVID -19, vector-nr, rS-Ad26, preservative free 05/02/2021,07/03/2020 PPD Test 05/27/2014, 3,07/28/2011,04/08,04/17/2007,04/26/2006 Pneumococcal polysaccharide 23 valent (Pneumovax 23) 2yo and older 05/12/2021,05/12/2021 SARS-COV-2 (COVID-19) Vaccin e, Unspecified 02/21/2010 Td Tetanus diptheria (Tdvax) 7yo and older 01/10/2006 Td, Unspecified 01/10/2006 Tdap Tetanus diptheria acell ular pertussis (Boostrix; Adacel) 7yo and older 09/18/2012,09/18/2012 Surgical History Surgery Date Site/Laterality Comments TUBAL LIGATION PROCEDURE: HISTORICAL TUBAL LIGATION COLONOSCOPY 02/21/10 PROCEDURE: HISTORICAL COLONOSCOPY; COMMENT: normal; repeat in ten years Medical History Medical History Date Comments Depressive disorder, not els ewhere classified 12/08/2005 DX:Depressive disorder, not elsewhere classified Allergic rhinitis, cause unspecified 01/10/2006 DX:Allergic rhinitis, cause unspecified Tubal ligation status 01/10/2006 DX:Tubal l igation status Benign liver cyst DX:Benign live r cyst; COMMENT: seen on ultrasound and CT scan 07/01 Fractured metatarsal bone - 1992 DX:Fra ctured metatarsal bone; COMMENT: right 5th metatarsal Hematuria 11/23/2009 DX:Hematuria Rheumatoid arthritis(714.0) 10/14/2012 DX:R heumatoid arthritis(714.0); COMMENT: Onset 2011,RF positive. Hydroxychloroquine started 08/05 Essential hypertension DX:Essent ial hypertension Apnea 08/23/2021 Difficulty breathing 04/05/2022 Shortness of breath on exertion 12/08/2020 Anterior myocardial infarcti on (CMS/HCC V24, CMS/HCC V28) 12/10/2020 Last Assessment & Plan: Pat ient with vague chest symptoms. Possibly ischemic previous myocardial infarction that was silent. Patient be sent for stress echocardiogram to assess for underlying progressive ischemic disease H. pylori infection 02/18/2024 Right-sided headache 05/28/2024 Family History Medical History Relation Name Comments Breast cancer Aunt m 20 49 Mother's Side Arthritis Father Heart attack Father age 68 Parkinson's Disease Maternal Grandfather Arthritis Mother Hypertension Mother Other: CA Ovarian, Cervical Other Neg Hx Prostate cancer Paternal Grandfather Relation Name Status Comments Aunt m 20 49 Alive Daughter 1 Alive Daughter 2 Alive Father Alive Maternal Grandfather Maternal Grandmother Mother Alive Other Paternal Grandfather Paternal Grandmother Son 1 Alive Son 2 Alive Son 3 Alive Son 4 Alive Social History Tobacco Use Types Packs/Day Years Used Date Smoking Tobacco: Former Cigarettes Q uit: 03/26/1984 Smokeless Tobacco: Never Tobacco Cessation:Counseling Given: Not Answered Alcohol Use Standard Drinks/Week Comments Not Currently 0 (1 standard drink = 0.6 oz pur e alcohol) Comments Unknown Sex and Gender Information Value Date Recorded Sex Assigned at Not on file Legal Sex Female 9:01 AM EST Gender Identity Not on file Sexual Orientation Not on file Obstetrics History Last Filed Vital Signs Vital Sign Reading Time Taken Comments Blood Pressure 165/93 06/19/2024 3:50 PM EDT Pulse 64 06/17/2024 2:13 PM EDT Temperature 36.3 ??C (97.4 ??F) 05/28/2024 2:26 PM ES T Respiratory Rate 16 05/28/2024 2:26 PM EST Oxygen Saturation 96% 06/17/2024 2:13 PM EDT Inhaled Oxygen Concentration - - Weight 78.5 kg (173 lb) 06/19/2024 3:50 PM EDT Height 162.6 cm (5' 4 ) 06/19/2024 3:50 PM EDT Body Mass Index 29.7 06/19/2024 3:50 PM EDT Plan of Treatment Upcoming Encounters Date Type Department Care Team (Late st Contact Info) Description 12/01/2024 10:30 AM EDT Office Visit Adult Medicine [address] [phone] Jm Blue MD [address] [place] [id number] 12/31/2024 1:00 PM EDT Office Visit [facility] Cardiology [facility] [address] [facility] [address] [place] [address] Jesús Turk MD [address] [place] [address] [address]IVE [address] [place] [address] Health Maintenance Due Date Last Done Comments Zoster Vaccines (1 of 2) 07/03/2003 RSV Immunization Adult Patients (1 - Risk 60-74 years 1-dose series) 2013 Depression Screening 03/04/2022 Falls Risk Assessment 03/04/2022 Social Influencers of Health Screening 03/04/2022 Pneumococcal Vaccine: 50+ Years (2 of 2 - PCV) 05/12/2022 05/12/2021, 05/12/2021 DTaP,Tdap,and Td Vaccines (5 - Td or Tdap) 09/18/2022 09/18/2012, 09/18/2012, 01/10/2006, Additional history exists COVID-19 Vaccine ( season) 2023 05/02/2021, 07/03/2020, 02/21/2010 Breast Cancer Screening 08/10/2024 08/11/19 23, 08/04/2021, 02/07/2020, Additional history exists Colorectal Cancer Screening: Stool Based Tests (FOBT/FIT) 09/21/2024 09/22/2023, 09/22/2023, 09/22/2023 Influenza Vaccine (Season Ended) 2024 12/20/2022, 12/20/2022, 01/04/2021, Additional history exists Hypertension/CHF/CAD Annual BMP Blood Test 03/31/2025 03/31/2024, 09/04/2023, 09/04/2023, Additional history exists Cholesterol Screening (Lipid Panel) 12/27/2027 12/26/2022, 12/26/2022 Osteoporosis Screening (Bone Density Screening) 08/05/2031 08/04/2021 Hepatitis C Screening Completed 03/31/2024 , 03/08/2020, 03/08/2020 HIB Vaccines Aged Out No longer eligi ble based on patient's age to complete this topic HPV Vaccines Aged Out No longer eligi ble based on patient's age to complete this topic Hepatitis A Vaccines Aged Out No long er eligible based on patient's age to complete this topic Hepatitis B Vaccines Aged Out No long er eligible based on patient's age to complete this topic IPV Vaccines Aged Out No longer eligi ble based on patient's age to complete this topic MMR Vaccines Aged Out No longer eligi ble based on patient's age to complete this topic Meningococcal ACWY Vaccine Aged Out N o longer eligible based on patient's age to complete this topic Meningococcal B Vaccine Aged Out No l onger eligible based on patient's age to complete this topic RSV Immunization Patients Under 20 months Aged Out No longer eligible based on patient's age to complete this topic Varicella Vaccines Aged Out No longer eligible based on patient's age to complete this topic Procedures Procedure Name Priority Date/Time Associated Diagnosis Comments TRANSTHORACIC ECHOCARDIOGRAM (TTE) COMPLETE Routine 06/19/2024 3:50 PM EDT Syncope, unspecified syncope type ECG 12-LEAD Routine 06/17/2024 2:49 PM EDT Syncope, unspecified syncope type Atrial fibrillation, unspecified type (CMS/HCC V24, CMS/HCC V28) HEPATITIS PANEL, ACUTE WITH REFLEX TO CONFIRMATION Routine 03/31/2024 3:22 PM EST Encounter for screening for other viral diseases Rheumatoid arthritis with rheumatoid factor, unspecified (CMS/HCC) COMPREHENSIVE METABOLIC PANEL Routine 03/31/2024 3:22 PM EST Encounter for screening for other viral diseases Rheumatoid arthritis with rheumatoid factor, unspecified (CMS/HCC) HM STOOL BASED TEST Routine 09/22/2023 LIPID PANEL Routine 12/26/2022 SCREENING MAMMOGRAPHY BI 2-VIEW BREAST INC CAD Routine 08/10/2022 3:32 PM EDT Encounter for screening mammogram for malignant neoplasm of breast DXA BONE DENSITY STUDY 1+ SITS AXIAL SKEL Routine 08/04/2021 3:58 PM EDT Encounter for general adult medical examination without abnormal findings from Last 3 Months or Most Recently Relevant to Health Maintenance Results * (ABNORMAL) TRANSTHORACIC ECHOCARDIOGRAM (TTE) COMPLETE (06/19/2024 3:50 PM EDT) LV EDV (A2C) 66 mL CV PACS LV EDV (A4C) 56 mL CV PACS LV Diastolic Volume (BP) 60 46 - 106 mL CV PACS LV ESV (A2C) 34 mL CV PACS LV ESV (A4C) 25 mL CV PACS LV Systolic Volume (BP) 29 14 - 42 mL CV PACS IVSD 1.1(A) 0.6 - 0.9 cm CV PACS LVIDD 4.7 3.8 - 5.2 cm CV PACS LVIDS 3.6(A) 2.2 - 3.5 cm CV PACS LVOT Diameter 1.9 cm CV PACS LVOT Mean Ash 0.6 m/s CV PACS LVOT Mean Grad 2 mmHg CV PACS LVOT Mean Grad 2 mmHg CV PACS LVOT Peak VTI 20.7 cm CV PACS LVOT Peak Ash 1.0 m/s CV PACS LVOT Peak Gradient 4 mmHg CV PACS LVPWD 1.1(A) 0.6 - 0.9 cm CV PACS MV E' Tissue Velocity Lateral 7 cm/s CV PACS MV E' Tissue Velocity Septal 5 cm/s CV PACS Ejection Fraction (A2C) 48 % CV PACS Ejection Fraction (A4C) 54 % CV PACS Ejection Fraction (BP) 51 % CV PACS LVOT Area 2.8 cm2 CV PACS LVOT Stroke Volume 59 mL CV PACS Left Atrium Minor [place] 6.1 cm CV PACS Left Atrium Major [place] 5.9 cm CV PACS LA Area Sys (A2C) 25 cm2 CV PACS LA Area Sys (A4C) 21 cm2 CV PACS LA Volume (BP) 73 mL CV PACS LA Size 4.6 cm CV PACS RA Area 17.5 cm2 CV PACS RA 2D Volume 44 mL CV PACS AV Mean Gradient 3 mmHg CV PACS AV Mean Gradient 3 mmHg CV PACS AV Mean Gradient 3 mmHg CV PACS AV Mean Gradient 3 mmHg CV PACS Ao VTI 31.9 cm CV PACS AV Peak Ash 1.4 m/s CV PACS AV Peak Gradient 7 mmHg CV PACS AV Area Continuity Equation 1.8 cm2 CV PACS AV Area Peak Velocity 2.1 cm2 CV PACS Aortic Arch 2.4 cm CV PACS Ascending Aorta 3.6 cm CV PACS Aortic Sinus Valsalva 3.6 cm CV PACS IVC Proximal 2.4 cm CV PACS MV Deceleration [place] 5.8 m/s2 CV PACS E Wave Deceleration Time 164 119 - 242 ms CV PACS MV PHT 48 ms CV PACS MV Peak A Ash 1.05 m/s CV PACS MV Peak E Ash 0.96 m/s CV PACS MV Mean Gradient 2 mmHg CV PACS MV Mean Gradient 2 mmHg CV PACS MV VTI 37.7 cm CV PACS Mitral Valve Max Velocity 1.2 m/s CV PACS MV Peak Gradient 5 mmHg CV PACS MV Area PHT 4.6 cm2 CV PACS MV Area Continuity Equation 1.6 cm2 CV PACS PV Acceleration Time 150 ms CV PACS PV Mean Gradient 1 mmHg CV PACS PV VTI 18.4 cm CV PACS PV Peak Velocity 0.8 m/s CV PACS PV Peak Gradient 2 mmHg CV PACS RV Diastolic Basal Dimension 3.6 2.5 - 4.1 cm CV PACS RV S' 10 cm/s CV PACS TAPSE 30 mm CV PACS TR Peak Velocity 2.99 m/s CV PACS TR Peak Gradient 36 mmHg CV PACS E/E' Ratio Septal 19 CV PACS E/E' Ratio Averaged 16 CV PACS Relative Wall Thickness ratio 0.47 CV PACS LVOT:AV VTI Index 0.65 CV PACS FS 23 % CV PACS LV Mass 2D 188 g CV PACS MV VTI:LVOT VTI ratio 1.8 CV PACS LVOT flow 170 mL/s CV PACS AV Velocity Ratio 0.71 CV PACS E/A Ratio 0.9 CV PACS E/E' Ratio Lateral 14 CV PACS BSA 1.88 m2 CV PACS LV Diastolic Volume Index (BP) 33 29 - 61 mL/m2 CV PACS LV Systolic Volume Index (BP) 16 8 - 24 mL/m2 CV PACS LV EDV Index (A4C) 30 mL/m2 CV PACS LV ESV Index (A4C) 14 mL/m2 CV PACS LV EDV Index (A2C) 36 mL/m2 CV PACS LV ESV Index (A2C) 18 mL/m2 CV PACS LA Volume Index (BP) 40 mL/m2 CV PACS LVIDD Index 2.55 cm/m2 CV PACS LVIDS Index 1.96 cm/m2 CV PACS LV Mass Index 2D 102(A) 44 - 88 g/m2 CV PACS LVOT Stroke Index 32 mL/m2 CV PACS LA Dimension Index 2D 2.5 cm/m2 CV PACS RA 2D Volume Index 24 15 - 27 mL/m2 CV PACS VERONICA Index (VTI) 1.00 cm2/m2 CV PACS VERONICA Index (Pk Ash) 1.14 cm2/m2 CV PACS Ascending Aorta Index 1.96 cm/m2 CV PACS Right Ventricular Peak Systolic Pressure 44 mmHg CV PACS Est. RA Pressure 8 mmHg CV PACS Anatomical Region Laterality Modality Ultrasound Narrative 06/22/2024 4:59 PM EDT ?Left ventricle cavity size is normal. Left ventricular systolic function is low normal with an ejection fraction of 50-55%. ?Regional LV wall motion abnormalities noted. See wall scoring diagram. ?Left ventricle mild concentric hypertrophy. ??Mild diastolic dysfunction elevated left atrial filling pressure ?Right ventricle cavity is normal. ?Aortic valve leaflets are mildly thickened. ?Mildly elevated right ventricular systolic pressure. ?The Sinus of Valsalva is dilated (3.6 cm). The ascending aorta is dilated (3.6 cm). ?Mild mitral annular calcification ?Mild to moderate tricuspid insufficiency with borderline pulmonary hypertension ?Mild mitral insufficiency ?Compared to previous study dated 02/07/2023. ??No change in the size of the ascending aorta. ??No significant change in overall LV systolic function though the previously identified possible infarct is no longer identified Left Ventricle Left ventricle cavity size is normal. There is mild concentric hypertrophy. Systolic function is low normal with an ejection fraction of 50-55%. Right Ventricle Right ventricle cavity appears normal. Left Atrium Left atrium cavity is mildly dilated. Right Atrium Right atrium cavity is normal. IVC/SVC Inferior vena cava structure is normal. RA pressures is estimated to be 8 mmHg (IVC diameter <21 mm and decreases <50% during inspiration). Mitral Valve The leaflets are mildly thickened. There is mild annular calcification. There is trace regurgitation. There is no evidence of mitral valve stenosis. Tricuspid Valve Tricuspid valve structure is normal. There is mild regurgitation with a central jet. The right ventricular systolic pressure is mildly elevated. Aortic Valve Number of aortic valve cusps cannot be determined. The leaflets are mildly thickened. There is trace regurgitation with a centrally directed jet. There is no evidence of aortic valve stenosis. Pulmonic Valve The pulmonic valve was not well visualized. There is no pulmonic valve regurgitation. Ascending Aorta The Sinus of Valsalva is(3.6 cm). The ascending aorta is(3.6 cm). Pericardium Pericardium appears normal. There is no pericardial effusion. Study Details Overall the study quality was adequate. Wall Scoring Baseline Score Index: 2.00 The following segments are hypokinetic: basal anteroseptal, basal inferoseptal and basal inferior. Other segments could not be evaluated. us Jesús Turk MD CV ECHO PROCEDURES Final Resul t * ECG 12 lead (06/17/2024 2:49 PM EDT) Pathologist [facility] Ventricular Rate ECG 64 BPM GEMUSE Atrial Rate 64 BPM GEMUSE P-R Interval 158 ms GEMUSE QRS Duration 84 ms GEMUSE Q-T Interval 412 ms GEMUSE QTc 425 ms GEMUSE P Wave [place] 57 degrees GEMUSE R [place] 22 degrees GEMUSE T [place] 24 degrees GEMUSE ECG Interpretation Normal sinus rhythm with sinus arrhythmia Borderline ECG When compared with ECG of 17-NOV-2022 13:37, No significant change was found Confirmed by PENNY ROBIN ([id number]) on 06/18/2024 1:55:02 PM GEMUSE 06/17/2024 2:24 PM EDT 06/18/2024 1:55 PM EDT us Merced Velasquez NP ECG ORDERABLES Edited Resul t - Final GEMUSE * Hepatitis panel, acute with reflex to confirmation (03/31/2024 3:22 PM EST) Pathologist [facility] Hepatitis B Surface Ag Negative Negative LAB CHEMISTRY METHOD 03/31/2024 8:[address] [facility] Hepatitis A Antibody IgM Negative Negative LAB CHEMISTRY METHOD 03/31/2024 8:26 PM [facility] Hep B Core IgM Negative Negative LAB CHEMISTRY METHOD 03/31/2024 8:26 PM [facility] Hepatitis C Antibody Negative Negative LAB CHEMISTRY METHOD 03/31/2024 8:26 PM [facility] Blood Venous blood specimen / Unknown 03/31/2024 3:22 PM EST 03/31/2024 4:47 PM EST us Deep Barakat MD LAB BLOOD ORDERABLES Final Res ult [facility] [address] [place] [address], [place] [phone] * Comprehensive metabolic panel (03/31/2024 3:22 PM EST) Sodium 140 133 - 145 mmol/L LAB CHEMISTRY METHOD 03/31/2024 7:24 PM [facility] Potassium 4.0 3.5 - 5.5 mmol/L LAB CHEMISTRY METHOD 03/31/2024 7:24 PM [facility] Chloride 107 96 - 110 mmol/L LAB CHEMISTRY METHOD 03/31/2024 7:24 PM [facility] CO2 29 21 - 32 mmol/L LAB CHEMISTRY METHOD 03/31/2024 7:24 PM [facility] Anion Gap 4 3 - 11 LAB CHEMISTRY METHOD 03/31/2024 7:24 PM [facility] Glucose 91 70 - 100 mg/dL LAB CHEMISTRY METHOD 03/31/2024 7:24 PM [facility] BUN 14 5 - 25 mg/dL LAB CHEMISTRY METHOD 03/31/2024 7:24 PM [facility] Creatinine 0.70 0.50 - 1.10 mg/dL LAB CHEMISTRY METHOD 03/31/2024 7:[address] [facility] eGFR 93 >=60 mL/min/1. 73m2 LAB CHEMISTRY METHOD 03/31/2024 7:24 PM [facility] Comment:Calculation based on the??Chronic Kidney Disease Epidemiology Collaboration (CKD-EPI) equation refit??without adjustment for race. BUN/Creatinine Ratio 20.0 LAB CHEMISTRY METHOD 03/31/2024 7:24 PM [facility] Calcium 9.3 8.5 - 10.5 mg/dL LAB CHEMISTRY METHOD 03/31/2024 7:24 PM [facility] AST (SGOT) 22 10 - 42 unit/L LAB CHEMISTRY METHOD 03/31/2024 7:24 PM [facility] ALT (SGPT) 21 10 - 60 unit/L LAB CHEMISTRY METHOD 03/31/2024 7:24 PM [facility] Alkaline Phosphatase 101 42 - 121 unit/L LAB CHEMISTRY METHOD 03/31/2024 7:24 PM [facility] Total Protein 7.3 6.0 - 8.0 g/dL LAB CHEMISTRY METHOD 03/31/2024 7:24 PM [facility] Albumin 3.4 3.2 - 5.0 g/dL LAB CHEMISTRY METHOD 03/31/2024 7:24 PM [facility] Total Bilirubin 1.1 0.0 - 1.4 mg/dL LAB CHEMISTRY METHOD 03/31/2024 7:24 PM [facility] Blood Venous blood specimen / Unknown 03/31/2024 3:22 PM EST 03/31/2024 4:47 PM EST us Deep Barakat MD LAB BLOOD ORDERABLES Final Res ult [facility] [address] [place] [address], [place] [phone] * Hm Stool Based Tests (FOBT/FIT) (09/22/2023) Pathologist [facility] Colorectal Cancer Screening: Stool Based Tests no interpretation , abstracted us Historical Provider HEALTH MAINTENANCE Final Result * Lipid panel (12/26/2022) [facility] LDL/HDL Ratio 3 <=4 Triglycerides 61 <=150 mg/dL Cholesterol 157 <=200 mg/dL HDL 64 >=40 mg/dL LDL Cholesterol 81 <=100 mg/dL Blood Venous blood specimen / Unknown us Historical Provider LAB BLOOD ORDERABLES Emmy l Result * SCREENING MAMMOGRAPHY BI 2-VIEW BREAST INC CAD (08/10/2022 3:32 PM EDT) Anatomical Region Laterality Modality Radiographic Vania ging 08/04/2021 3:22 PM EDT Narrative 08/11/2022 12:56 PM EDT This is a summary report. The complete report is available in the patient's medical record. If you cannot access the medical record, please contact the sending organization for a detailed fax or copy. BILATERAL 3D DIGITAL SCREENING MAMMOGRAM History: Routine screening. ??No current breast complaints. ??Family history of breast cancer in aunt Comparison: Multiple priors dating back to 02/01/2019 Technique: Bilateral full-field digital 3D mammography was performed using standard CC and MLO projections, right breast exaggerated cc view CAD was used to evaluate this mammogram. Findings: Density: ??There are scattered areas of fibroglandular density-B RIGHT: No suspicious masses, groups of microcalcification or areas of architectural distortion identified. Stable typically benign parenchymal asymmetries LEFT: No suspicious masses, groups of microcalcifications or areas of architectural distortion identified. Stable typically benign parenchymal asymmetries IMPRESSION: : 1. ??No mammographic evidence of malignancy. BI-RADS Category 2 benign findings Recommendation: Routine annual screening mammography is recommended Procedure Note Reddy Olsen MD - 04/30/2023 This is a summary report. The complete report is available in thepatient's medical record. If you cannot access the medical record, pleasecontact the sending organization for a detailed fax or copy. BILATERAL 3D DIGITAL SCREENING MAMMOGRAM History: Routine screening. No current breast complaints. Family historyof breast cancer in aunt Comparison: Multiple priors dating back to 02/01/2019 Technique: Bilateral full-field digital 3D mammography was performed usingstandard CC and MLO projections, right breast exaggerated cc view CAD was used to evaluate this mammogram. Findings: Density: There are scattered areas of fibroglandular density-B RIGHT: No suspicious masses, groups of microcalcification or areas ofarchitectural distortion identified. Stable typically benign parenchymalasymmetries LEFT: No suspicious masses, groups of microcalcifications or areas ofarchitectural distortion identified. Stable typically benign parenchymalasymmetries IMPRESSION: : 1. No mammographic evidence of malignancy. BI-RADS Category 2 benign findings Recommendation: Routine annual screening mammography is recommended us Jm Blue MD IMG XR PROCEDURES Final Res ult * DXA BONE DENSITY STUDY 1+ SITS AXIAL SKEL (08/04/2021 3:58 PM EDT) Anatomical Region Laterality Modality Bone Densitometr y 05/12/2021 9:20 AM EST Narrative 08/04/2021 4:57 PM EDT BONE DENSITY ? Lumbar Spine T-score is -0.9 ?? (SD relative to 20-29 y/o adult) Z-score is +1.1 ??(SD relative to age matched peers) This is normal by criteria defined by the WHO. Left Hip T-score is -2.3 Z-score is -0.9 This is consistent with osteopenia by criteria defined by the WHO. Impression: Based on the World Health Organization criteria, Altagracia Webster should be classified as having osteopenia. This patient has a 14% risk of major osteoporotic fracture and a 2.5% risk of hip fracture over the next 10 years. (World Health Organization Fracture Risk Assessment) [facility] Department of Internal Medicine recommends using National Osteoporosis Foundation (NOF) guidelines in treatment decisions related to osteoporosis. NOF guidelines suggest considering treatment for postmenopausal women and men aged 50 or older presenting with the following: History of hip or vertebral fracture. T-score less than or equal to -2.5 (DXA) at the femoral neck, total hip, or spine, after appropriate evaluation to exclude secondary causes. Low bone mass (T-score between -1.0 and -2.5 at the femoral neck or spine) AND a 10-year probability of a hip fracture greater than or equal to 3% OR a 10-year probability of a major osteoporosis-related fracture greater than or equal to 20% based on the [place]-adapted WHO algorithm Please note that all treatment decisions require clinical judgment and consideration of individual patient factors, including patient preferences, co-morbidities, previous drug use, risk factors not captured in the FRAX model (e.g., frailty, falls, vitamin D deficiency, increased bone turnover, interval significant decline in bone density) and possible under- or over-estimation of fracture risk by FRAX. Procedure Note Sherrill Sweeney MD - 03/14/2022 BONE DENSITY Lumbar Spine T-score is -0.9 (SD relative to 20-29 y/o adult) Z-score is +1.1 (SD relative to age matched peers) This is normal by criteria defined by the WHO. Left Hip T-score is -2.3 Z-score is -0.9 This is consistent with osteopenia by criteria defined by the WHO. Impression: Based on the World Health Organization criteria, Altagracia Webster shouldbe classified as having osteopenia. This patient has a 14% risk of majorosteoporotic fracture and a 2.5% risk of hip fracture over the next 10years. (World Health Organization Fracture Risk Assessment) [facility] Department of Internal Medicine recommendsusing National Osteoporosis Foundation (NOF) guidelines in treatmentdecisions related to osteoporosis. NOF guidelines suggest consideringtreatment for postmenopausal women and men aged 50 or older presentingwith the following: History of hip or vertebral fracture. T-score less than or equal to -2.5 (DXA) at the femoral neck, total hip,or spine, after appropriate evaluation to exclude secondary causes. Low bone mass (T-score between -1.0 and -2.5 at the femoral neck or spine)AND a 10-year probability of a hip fracture greater than or equal to 3% ORa 10-year probability of a major osteoporosis-related fracture greaterthan or equal to 20% based on the [place]-adapted WHO algorithm Please note that all treatment decisions require clinical judgment andconsideration of individual patient factors, including patientpreferences, co-morbidities, previous drug use, risk factors not capturedin the FRAX model (e.g., frailty, falls, vitamin D deficiency, increasedbone turnover, interval significant decline in bone density) and possibleunder- or over-estimation of fracture risk by FRAX. Artemio Pearce MD IMG DXA PROCEDURES Final Resu lt from Last 3 Months or Most Recently Relevant to Health Maintenance Insurance MEDICARE [facility] Care Teams Gis Analyst Relationship Specialty Start Date End Date Jm Blue MD [address] [place] [id number] PCP - General Internal Medicine 11/01/21
--- OUTSIDE RECORDS SUMMARY | 2024-08-04 12:12 | XMS_ITS | Encounter Summary ---
Author Organization [facility] Address [address] [place] [address] Care Team Providers Care Microeconomics Professor Name Role Phone Jm Blue MD Primary Care Provider [phone] Encounter Details Date Type Department Care Team (Late Contact Info) Description 03/31/2024 Lab Requisition [facility] - Main Lab [address] [facility] [place] [address] Deep Barakat MD [address] [place] [address] [place] [address] Encounter for screening for other viral diseases; Rheumatoid arthritis with rheumatoid factor, unspecified (CMS/HCC V24, CMS/HCC V28) Social History Tobacco Use Types Packs/Day Years Used Date Smoking Tobacco: Former Cigarettes Q uit: 03/26/1984 Smokeless Tobacco: Never Alcohol Use Standard Drinks/Week Comments Not Currently 0 (1 standard drink = 0.6 oz pur e alcohol) Comments Unknown Sex and Gender Information Value Date Recorded Sex Assigned at Not on file Legal Sex Female 9:01 AM EST Gender Identity Not on file Sexual Orientation Not on file documented as of this encounter Plan of Treatment Upcoming Encounters Date Type Department Care Team (Late Contact Info) Description 12/01/2024 10:30 AM EDT Office Visit Adult Medicine [address] [phone] Jm Blue MD [address] [place] [id number] 12/31/2024 1:00 PM EDT Office Visit [facility] Cardiology [facility] [address] [place] [phone] Jesús Turk MD [address] [place] [address] [address] [place] [address] documented as of this encounter Procedures Procedure Name Priority Date/Time Associated Diagnosis Comments HEPATITIS PANEL, ACUTE WITH REFLEX TO CONFIRMATION Routine 03/31/2024 3:22 PM EST Encounter for screening for other viral diseases Rheumatoid arthritis with rheumatoid factor, unspecified (CMS/HCC) CYCLIC CITRULLINATED PEPTIDE, IGG AND IGA Routine 03/31/2024 3:22 PM EST Encounter for screening for other viral diseases Rheumatoid arthritis with rheumatoid factor, unspecified (CMS/HCC) CBC WITH AUTO DIFFERENTIAL Routine 03/31/2024 3:22 PM EST Encounter for screening for other viral diseases Rheumatoid arthritis with rheumatoid factor, unspecified (CMS/HCC) SEDIMENTATION RATE Routine 03/31/2024 3: 22 PM EST Encounter for screening for other viral diseases Rheumatoid arthritis with rheumatoid factor, unspecified (CMS/HCC) CBC AND DIFFERENTIAL Routine 03/31/2024 3:22 PM EST Encounter for screening for other viral diseases Rheumatoid arthritis with rheumatoid factor, unspecified (CMS/HCC) C-REACTIVE PROTEIN Routine 03/31/2024 3: 22 PM EST Encounter for screening for other viral diseases Rheumatoid arthritis with rheumatoid factor, unspecified (CMS/HCC) COMPREHENSIVE METABOLIC PANEL Routine 03/31/2024 3:22 PM EST Encounter for screening for other viral diseases Rheumatoid arthritis with rheumatoid factor, unspecified (CMS/HCC) documented in this encounter Results * (ABNORMAL) CBC auto differential (03/31/2024 3:22 PM EST) WBC 6.9 4.8 - 10.8 K/[facility] LAB HEMETOLOGY METHOD 03/31/2024 7:24 PM [facility] RBC 3.80 3.80 - 4.80 M/mcL LAB HEMETOLOGY METHOD 03/31/2024 7:24 PM [facility] Hemoglobin 11.9 11.5 - 16.0 g/dL LAB HEMETOLOGY METHOD 03/31/2024 7:24 PM [facility] Hematocrit 37.6 35.0 - 47.0 % LAB HEMETOLOGY METHOD 03/31/2024 7:24 PM [facility] MCV 99.2(H) 79.0 - 98.0 FL LAB HEMETOLOGY METHOD 03/31/2024 7:24 PM [facility] MCH 31.4 27.0 - 32.0 pcg LAB HEMETOLOGY METHOD 03/31/2024 7:24 PM [facility] MCHC 31.6(L) 32.0 - 37.0 g/dL LAB HEMETOLOGY METHOD 03/31/2024 7:24 PM [facility] RDW 12.9 11.0 - 15.0 % LAB HEMETOLOGY METHOD 03/31/2024 7:24 PM [facility] Platelets 243 130 - 400 K/mcL LAB HEMETOLOGY METHOD 03/31/2024 7:24 PM [facility] MPV 11.2(H) 7.0 - 11.0 FL LAB HEMETOLOGY METHOD 03/31/2024 7:24 PM [facility] NRBC 0.0 <1.0 % LAB HEMETOLOGY METHOD 03/31/2024 7:24 PM [facility] NRBC Absolute 0.00 <0.10 K/mcL LAB HEMETOLOGY METHOD 03/31/2024 7:24 PM [facility] Neutrophils Relative 39.2 % LAB HEMETOLOGY METHOD 03/31/2024 7:24 PM [facility] Lymphocytes Relative 48.7 % LAB HEMETOLOGY METHOD 03/31/2024 7:24 PM [facility] Monocytes Relative 8.4 % LAB HEMETOLOGY METHOD 03/31/2024 7:24 PM [facility] Eosinophils Relative 3.2 % LAB HEMETOLOGY METHOD 03/31/2024 7:24 PM [facility] Basophils Relative 0.4 % LAB HEMETOLOGY METHOD 03/31/2024 7:24 PM [facility] Immature Granulocytes Relative 0.1 % LAB HEMETOLOGY METHOD 03/31/2024 7:24 PM [facility] Neutrophils Absolute 2.69 1.50 - 7.00 K/mcL LAB HEMETOLOGY METHOD 03/31/2024 7:24 PM [facility] Lymphocytes Absolute 3.35 1.00 - 5.00 K/mcL LAB HEMETOLOGY METHOD 03/31/2024 7:24 PM [facility] Monocytes Absolute 0.58 0.20 - 1.00 K/mcL LAB HEMETOLOGY METHOD 03/31/2024 7:24 PM [facility] Eosinophils Absolute 0.22 0.00 - 0.50 K/mcL LAB HEMETOLOGY METHOD 03/31/2024 7:24 PM [facility] Basophils Absolute 0.03 0.00 - 0.20 K/mcL LAB HEMETOLOGY METHOD 03/31/2024 7:24 PM [facility] Immature Granulocytes Absolute 0.01 0.00 - 0.03 K/mcL LAB HEMETOLOGY METHOD 03/31/2024 7:24 PM [facility] Blood Venous blood specimen / Unknown 03/31/2024 3:22 PM EST 03/31/2024 4:47 PM EST us Deep Barakat MD LAB BLOOD ORDERABLES Final Res ult Performing Organization Address [facility]/ZIP Co de Phone Number [facility] [address] [place] [address], [place] [phone] * (ABNORMAL) Cyclic citrullinated peptide, IgG and IgA (03/31/2024 3:22 PM EST) [facility] CCP AB Quant 366(H) <20 Units LAB CHEMISTRY METHOD 04/01/2024 1:41 PM EST [facility] Cyclic Citrullinated Peptide (CCP) Antibody Positive (A) Negative LAB CHEMISTRY METHOD 04/01/2024 1:41 PM EST [facility] Blood Venous blood specimen / Unknown 03/31/2024 3:22 PM EST 03/31/2024 4:47 PM EST Deep Barakat MD LAB BLOOD ORDERABLES Final Res ult Performing Organization Address [facility]/ZIP Co de Phone Number [facility] [address] [place] [address], [place] [phone] * C-reactive protein (03/31/2024 3:22 PM EST) [facility] C-Reactive Protein <0.29 <=0.50 mg/dL LAB CHEMISTRY METHOD 03/31/2024 7:24 PM EST [facility] Blood Venous blood specimen / Unknown 03/31/2024 3:22 PM EST 03/31/2024 4:47 PM EST Deep Barakat MD LAB BLOOD ORDERABLES Final Res ult Performing Organization Address City/[facility]/ZIP Co de Phone Number [facility] [address] [place] [address], [place] [phone] * Hepatitis panel, acute with reflex to confirmation (03/31/2024 3:22 PM EST) [facility] Hepatitis B Surface Ag Negative Negative LAB CHEMISTRY METHOD 03/31/2024 8:26 PM [facility] Hepatitis A Antibody IgM Negative Negative LAB CHEMISTRY METHOD 03/31/2024 8:26 PM [facility] Hep B Core IgM Negative Negative LAB CHEMISTRY METHOD 03/31/2024 8:26 PM [facility] Hepatitis C Antibody Negative Negative LAB CHEMISTRY METHOD 03/31/2024 8:26 PM [facility] Blood Venous blood specimen / Unknown 03/31/2024 3:22 PM EST 03/31/2024 4:47 PM EST us Deep Barakat MD LAB BLOOD ORDERABLES Final Res ult [facility] [address] [place] [address], [place] [phone] * Comprehensive metabolic panel (03/31/2024 3:22 PM EST) Sodium 140 133 - 145 mmol/L LAB CHEMISTRY METHOD 03/31/2024 7:24 PM [facility] Potassium 4.0 3.5 - 5.5 mmol/L LAB CHEMISTRY METHOD 03/31/2024 7:24 PM [facility] Chloride 107 96 - 110 mmol/L LAB CHEMISTRY METHOD 03/31/2024 7:24 PM [facility] CO2 29 21 - 32 mmol/L LAB CHEMISTRY METHOD 03/31/2024 7:24 PM [facility] Anion Gap 4 3 - 11 LAB CHEMISTRY METHOD 03/31/2024 7:24 PM [facility] Glucose 91 70 - 100 mg/dL LAB CHEMISTRY METHOD 03/31/2024 7:24 PM [facility] BUN 14 5 - 25 mg/dL LAB CHEMISTRY METHOD 03/31/2024 7:24 PM [facility] Creatinine 0.70 0.50 - 1.10 mg/dL LAB CHEMISTRY METHOD 03/31/2024 7:24 PM [facility] eGFR 93 >=60 mL/min/1. 73m2 LAB CHEMISTRY METHOD 03/31/2024 7:24 PM [facility] Comment:Calculation based on the??Chronic Kidney Disease Epidemiology Collaboration (CKD-EPI) equation refit??without adjustment for race. BUN/Creatinine Ratio 20.0 LAB CHEMISTRY METHOD 03/31/2024 7:24 PM [facility] Calcium 9.3 8.5 - 10.5 mg/dL LAB CHEMISTRY METHOD 03/31/2024 7:24 PM [facility] AST (SGOT) 22 10 - 42 unit/L LAB CHEMISTRY METHOD 03/31/2024 7:24 PM [facility] ALT (SGPT) 21 10 - 60 unit/L LAB CHEMISTRY METHOD 03/31/2024 7:24 PM [facility] Alkaline Phosphatase 101 42 - 121 unit/L LAB CHEMISTRY METHOD 03/31/2024 7:24 PM [facility] Total Protein 7.3 6.0 - 8.0 g/dL LAB CHEMISTRY METHOD 03/31/2024 7:24 PM [facility] Albumin 3.4 3.2 - 5.0 g/dL LAB CHEMISTRY METHOD 03/31/2024 7:24 PM [facility] Total Bilirubin 1.1 0.0 - 1.4 mg/dL LAB CHEMISTRY METHOD 03/31/2024 7:24 PM [facility] Blood Venous blood specimen / Unknown 03/31/2024 3:22 PM EST 03/31/2024 4:47 PM EST us Deep Barakat MD LAB BLOOD ORDERABLES Final Res ult [facility] [address] [place] [address], * Sedimentation rate (03/31/2024 3:22 PM EST) Sed Rate 15 0 - 30 mm/hr LAB HEMETOLOGY METHOD 03/31/2024 7:31 PM EST [facility] Blood Venous blood specimen / Unknown 03/31/2024 3:22 PM EST 03/31/2024 4:47 PM EST us Deep Barakat MD LAB BLOOD ORDERABLES Final Res ult [facility] [address] [place] [address], documented in this encounter Visit Diagnoses Diagnosis Encounter for screening for other viral diseases Rheumatoid arthritis with rheumatoid factor, unspecified (CMS/HCC V24, CMS/HCC V28) documented in this encounter Additional Health Concerns Infection Onset Date Last Indicated Resolved Time Respiratory Rule-Out 04/30/2024 04/30/2024 025 11:29 PM EST COVID-19 Rule-Out 04/30/2024 04/30/2024 04/30/2024 11:29 PM EST Influenza 04/30/2024 04/30/2024 05/24/2024 7:04 PM EST documented as of this encounter Care Teams Microeconomics Professor Relationship Specialty Start Date End Date Jm Blue MD [address] [place] [id number] PCP - General Internal Medicine 11/01/21 documented as of this encounter
[2024-08-04 12:27] LABS: MANUAL DIFF FLAG NO
[2024-08-04 12:59] LABS: Basophils Percent Auto 0.7 % (0-2); Eosinophils Absolute Auto 0.2 X10*3/uL (0.0-0.4); Eosinophils Percent Auto 4.9 % (0-4); Hematocrit 34.2 % (37.0-47.0); Hemoglobin 11.2 g/dl (12.0-16.0); Imm Gran Abs Auto 0.01 X10*3/uL (0.00-0.03); Imm Gran Pct Auto 0.2 % (0.0-0.4); Lymphocytes Absolute Auto 2.5 X10*3/uL (1.2-4.9); Lymphocytes Percent Auto 56.3 % (20-40); Mean Corpuscular HGB Conc 32.7 g/dl (31.0-35.0); Mean Corpuscular Hemoglobin 31.2 pg (27.0-33.0); Mean Corpuscular Volume 95.3 fL (80.0-98.0); Mean Platelet Volume 11.6 fL (9.4-12.3); Monocytes Absolute Auto 0.5 X10*3/uL (0.1-1.2); Monocytes Percent Auto 10.8 % (2-11); Neutrophils Absolute Auto 1.2 x10*3/uL (2.0-8.3); Neutrophils Percent Auto 27.1 % (45-73); Platelet Count 197 X10*3/uL (160-400); Red Blood Count 3.59 X10*6/uL (4.20-5.50); Red Cell Distribution Width 12.7 % (11.0-16.0); White Blood Count 4.5 X10*3/uL (4.8-10.8)
[2024-08-04 13:40] LABS: Erythrocyte Sedimentation Rate 12 MM/HR (0-20)
[2024-08-04 14:11] LABS: Rheumatoid Factor 17.5 IU/mL (<15.0)
[2024-08-04 15:05] LABS: Alanine Aminotransferase 12 U/L (0-31); Albumin Level 3.4 g/dL (3.5-5.0); Alkaline Phosphatase 72 U/L (39-117); Anion Gap 11 (12-20); Aspartate Amino Transferase 31 U/L (5-31); Bilirubin Total 1.5 mg/dL (0.0-1.0); Blood Urea Nitrogen 11 mg/dL (9-16); C Reactive Protein 0.26 mg/dL (< or = 0.50); Calcium 8.7 mg/dL (8.4-10.2); Carbon Dioxide 24 mmol/L (22-29); Chloride 110 mmol/L (96-108); Estimated Glomerular Filt Rate > 60; Glucose Random 77 mg/dL (60-115); Potassium 3.8 mmol/L (3.3-5.1); Sodium 141 mmol/L (135-145); Total Protein 6.5 g/dL (6.5-8.0)
[2024-08-05 08:09] LABS: HBS Num1 0.21 mIU/mL (0-7.99); HBc Num1 0.28 S/CO (0.00-0.79); HBsAGNum1 0.46 S/CO (0.00-0.99); Hepatitis A Antibody IgM 0.13 Index (0-0.79); Hepatitis B Core Antibody Nonreactive (Nonreactive); Hepatitis B Surface Antigen Negative (Negative); ~HepC Num1 0.18 S/CO (0.00-0.79); ~Hepatitis A Antibody IgM Nonreactive (Nonreactive); ~Hepatitis B Surface Antibody NONREACTIVE (Nonreactive); ~Hepatitis C Antibody Nonreactive (Nonreactive)
[2024-08-05 21:44] LABS: Cyclic Citrullinated Peptide >250 UNITS
[2024-08-07 02:14] LABS: TS Negative Control Passed; TS Panel A 0; TS Panel B 0; TS Positive Control Passed; TSpotTB Negative (Negative)
== END 2024-08-04 11:20 | disposition home or self-care (01) ==
LOC: HO.10HDL 11:19
PROVIDERS: Visit Provider Student in an Organized Health Care Education/Training Program
DX: M05.9 Rheumatoid arthritis with rheumatoid factor, unspecified (principal); Z79.899 Other long term (current) drug therapy
CPT/HCPCS: 36415; 80053; 85025; 85652; 86140; 86200; 86431; 86481; 86704; 86706; 86709; 86803; 87340

== ENCOUNTER 2025-01-01 12:08 | Outpatient (REF) | payer OTHER, SELFPAY ==
[2025-01-01 13:59] LABS: Alanine Aminotransferase 15 U/L (0-31); Aspartate Amino Transferase 25 U/L (5-31); Estimated Glomerular Filt Rate > 60
[2025-01-01 14:11] LABS: Hematocrit 35.9 % (37.0-47.0); Hemoglobin 11.9 g/dl (12.0-16.0); Imm Gran Abs Auto 0.01 X10*3/uL (0.00-0.03); Imm Gran Pct Auto 0.2 % (0.0-0.4); Lymphocytes Absolute Auto 3.2 X10*3/uL (1.2-4.9); MANUAL DIFF FLAG SCAN; Mean Corpuscular HGB Conc 33.1 g/dl (31.0-35.0); Mean Corpuscular Hemoglobin 32.5 pg (27.0-33.0); Mean Corpuscular Volume 98.1 fL (80.0-98.0); NRBC Abs Auto 0.000 X10*3/uL (0.0-0.012); NRBC Pct Auto 0.0 /100WBC (0.0-0.2); Platelet Count 245 X10*3/uL (160-400); Red Blood Count 3.66 X10*6/uL (4.20-5.50); SCAN SMEAR FLAG 1; White Blood Count 5.2 X10*3/uL (4.8-10.8)
== END 2025-01-01 12:09 | disposition home or self-care (01) ==
LOC: HO.10HDL 12:08
PROVIDERS: Visit Provider Student in an Organized Health Care Education/Training Program
DX: M05.9 Rheumatoid arthritis with rheumatoid factor, unspecified (principal); Z79.899 Other long term (current) drug therapy
CPT/HCPCS: 36415; 82565; 84450; 84460; 85025; 85652; 86140

== ENCOUNTER 2025-01-02 14:26 | Outpatient (AMB) | payer OTHER, SELFPAY ==
--- NOTE | 2025-01-02 14:31 | A.OFFVIS_ITS ---
Vital Signs 01/02/25 14:34 Height 5 ft 4 in Weight 168 lb 3.403 oz BMI 28.9 BP 110/80 Blood Pressure Location Rt brachial Position Sitting Pulse 98 Pulse Source Pulse Oximeter Pulse Oximetry (%) 99 Oxygen Delivery Method Room Air Intake Visit Reasons: RA Intake Note: Patient last seen by Doctor Deep Barakat on 03/31/24. Presents today for RA follow up. Accompanied by: Self / Same As Patient Allergies ciprofloxacin (From Cipro) Allergy (Intermediate, Verified 01/02/25 14:35) Rash codeine Allergy (Intermediate, Verified 01/02/25 14:35) rash Medication List - Last Reconciled 01/02/25 by Anna Scott MD acetaminophen ER (Tylenol 8 Hour) 1,300 mg PO BID PRN apixaban (Eliquis) 5 mg PO BID etanercept (Enbrel SureClick) 50 mg subcut KEENAN lisinopril 10 mg See Protocol PO DAILY metoprolol tartrate 50 mg PO BID afghpnez-snc-HF-lycopen-lutein 0.4 mg-300 mcg- 250 mcg (Centrum Silver) 1 tab PO DAILY omeprazole 20 mg PO DAILY@0630 triamcinolone acetonide 0.1% 1 appl topical BID PRN HPI Comments Details: Patient is a 69-year-old female with AFib on Eliquis, hypertension, GERD, hyperlipidemia complicated by coronary artery disease, congestive heart failure, osteopenia, polyarticular osteoarthritis and seropositive rheumatoid arthritis here today for follow up Interval History: Patient last seen 03/31/[address] Barakat - On Enbrel 50mg SC weekly - She states that she is doing well overall except for pain in her feet when she walks especially the left foot. It only hurts when she walks on it. She has not noticed any significant swelling. She takes Tylenol. It does not help much, she also tried Voltaren gel, does not help much. She denies any other joint pain or swelling - Given a prednisone taper trial Today - On Enbrel 50mg SC weekly - States that the prednisone trial helped her feet - Doing well with her joints overall - Concerned about her heart because she has had to have several cardioversions but continues to revert to Afib Rheumatologic History: dx 2011 ++RF HCQ 08/05. MTX added 07/2013. Enbrel started 06/2014 - tried for about 4 months but stopped because of anxiety, lightheadedness, and fatigue. 2014: SSZ added to MTX & HCQ and SSZ stopped because of GI side effects 04/2015 Enbrel restarted 06/08 - added to MTX & HCQ; HCQ discontinued 03/2016 as it wasn't needed. 12/2017: MTX stopped, patient noncompliant with lab work. Enbrel continued. History from DrBryan :Minerva The patient presents for evaluation of her rheumatoid arthritis. She was last seen at [facility] in February. She has remained on Enbrel 50 mg weekly. There is occasional but short-lived pains in the fingers, wrists, and knees. She has some ibuprofen available but uses it only once or twice a week. There have been no adverse effects from the Enbrel. She had a recent bone density test. This showed some osteopenia. Current Rheumatology Medication(s): Enbrel 50mg SC every week [facility] Medical History Osteopenia after menopause History of myocardial infarction Hypertension Long-term use of immunosuppressant medication Seropositive rheumatoid arthritis Family History Father Heart problem Mother CHF (congestive heart failure) Social History Household Members: Family Household Members Other:: and son Both parents involved: No Caregiver staying overnight: No Housing: House Are you a primary wound care coordinator to a significant other at home: No Do you presently have visiting nurse or other home services: No 75 years or older and lives alone: No Alcohol intake: never Patient Tobacco Use Status: Never used Tobacco Years Smoked: quit 30-40 years ago e-Cigarette/Vaping Use: Never Used Advance Directives Date on File: 08/11/21 service: No Current occupational status: employed 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 Review of Systems Const Details: Review of Systems Constitutional: Denies fever, chills, weight loss ENT: Denies vision changes, eye pain or eye redness, dental caries, dry mouth GI: Denies nausea, vomiting, diarrhea, abdominal pain, change in BM Pulm: Denies SOB, SZYMANSKI, hemoptysis, wheezing Cards: Denies chest pain, palpitations Skin: Denies Raynaud's, rash, nail changes, photosensitivity, SALES REPRESENTATIVE BUSINESS COURSES: Denies headaches, weakness, paresthesias, recurrent falls MSK: as per HPI All other systems reviewed and are unremarkable except noted above Physical Exam Exam Exam: Vital signs reviewed Physical Examination CONSTITUITIONAL Patient alert and cooperative. Well appearing and in no apparent painful distress MSK Hands * Right Hand: Able to make a fist. No swelling or tenderness to palpation of the MCPs, PIPs or DIPs. * Left Hand: Able to make a fist. No swelling or tenderness to palpation of the MCPs, PIPs or DIPs. * Herbedens nodes noted bilaterally Wrists * Right Wrist: Slightly decreased ROM to flexion. No swelling or TTP * Left Wrist: Slightly decreased ROM to flexion. No swelling or TTP Elbows * Right Elbow: Full ROM. No swelling or TTP. No TTP of the medial epicondyle. No TTP of the lateral epicondyle * Left Elbow: Full ROM. No swelling or TTP. No TTP of the medial epicondyle. No TTP of the lateral epicondyle Shoulders * Right shoulder: Full ROM. No swelling noted. No TTP of the AC joint. No TTP of the subacromial bursa. No TTP of the posterior shoulder * Left shoulder: Full ROM. No swelling noted. No TTP of the AC joint. No TTP of the subacromial bursa. No TTP of the posterior shoulder Knees * Right knee: Full ROM. No swelling noted. No TTP of the knee joint line. No TTP of pes anserine bursa * Left knee: Full ROM. No swelling noted. No TTP of the knee joint line. No TTP of pes anserine bursa. * Crepitations felt bilaterally Ankles * Right ankle: Good ankle dorsiflexion and plantar flexion. No swelling. No TTP of the ankle joint * Left ankle: Good ankle dorsiflexion and plantar flexion. No swelling. No TTP of the ankle joint Feet * Right foot: Negative squeeze test * Left foot: Negative squeeze test Tender points? * No tenderness to palpation of the bilateral trapezius, supraspinatus, anterior costochondral junctions, bilateral suboccipital muscle insertions SKIN No rashes Results Reviewed Results Reviewed: Laboratory Tests 08/04/24 01/01/25 Unknown 12:15 WBC 5.2 RBC 3.66 L Hgb 11.9 L Hct 35.9 L Plt Count 245 ESR 9 Sodium 141 Potassium 3.8 Chloride 110 H Carbon Dioxide 24 BUN 11 Creatinine 0.61 0.72 AST 31 25 ALT 12 15 C-Reactive Protein 0.26 0.24 Laboratory Tests 08/04/24 Unknown Rheumatoid Factor 17.5 H Cycl Citrul Peptide IgG >250 H Laboratory Tests 08/04/24 11:21 Hepatitis A IgM Ab Nonreactive Hep Bs Antigen Negative Hep Bs Antibody NONREACTIVE Hep B Core Total Ab Nonreactive Hepatitis C Ab (EIA) Nonreactive TB Test (T-Spot) Com Negative Assessment & Plan Assessment & Plan (1) Seropositive rheumatoid arthritis: Comment: dx 2011 ++RF HCQ 08/05. MTX added 07/2013. Enbrel started 06/2014 - tried for about 4 months but stopped because of anxiety, lightheadedness, and fatigue. 2014: SSZ added to MTX & HCQ and SSZ stopped because of GI side effects 04/2015 Enbrel restarted 06/08 - added to MTX & HCQ; HCQ discontinued 03/2016 as it wasn't needed. 12/2017: MTX stopped, patient noncompliant with lab work. Enbrel continued. Code(s): M05.9 - Rheumatoid arthritis with rheumatoid factor, unspecified Category: Medical Plan: #Seropositive RA Patient is a 69 year old female with seropositive RA here today for follow up. Discussed with patient that Enbrel can exacerbate her underlying heart failure and that an agent like Actemra might be better for her. Discussed Actemra with patient. Patient would like to do a trial off immunosuppression because of her concern for the side effects of the other injectable immunosuppression agents. Since she is currently in remission we can do a trial. But I discussed restarting Hydroxychloroquine 200mg bid to atleast have some immunosuppression on board and she is amenable Plan - Stop Enbrel - Restart Hydroxychloroquine 200mg bid - RTC 3 months - Labs before visit: CBC, CMP, ESR, CRP (2) Osteopenia: Code(s): M85.80 - Other specified disorders of bone density and structure, unspecified site Qualifiers: Osteopenia location: unspecified Qualified Code(s): M85.80 - Other specified disorders of bone density and structure, unspecified site Plan: #Osteopenia Known osteopenia, no DEXA seen Plan - DEXA scan ordered (3) Encounter for monitoring of hydroxychloroquine therapy: Code(s): Z51.81 - Encounter for therapeutic drug level monitoring; Z79.899 - Other long-term (current) drug therapy Plan: #Long-term Use of Hydroxychloroquine Discussed with patient the risks and benefits of hydroxychloroquine in managing the rheumatic condition Benefits include: - Reduced pain, reduce mortality, maintenance of remission and reduction of flares Risks include: - GI upset, skin hyperpigmentation, retinal toxicity (especially after more than 5 years of use), myopathy Advised yearly ophthalmology visits Plan This is my first visit with the patient. I spent 40 minutes reviewing the record and labs, taking a history, examining the patient, discussing the treatment plan, ordering diagnostic work up and documenting in the medical record Orders: Orders Comprehensive Met. Panel 3 Months Z79.899 - Other long-term (current) drug therapy XR DEXA axial skeleton Today M81.0 - Age-related osteoporosis without current pathological fracture Complete Blood Count Auto Diff 3 Months Z79.899 - Other terminal carman (current) drug therapy C Reactive Protein 3 Months Z79.899 - Other long-term (current) drug therapy Erythrocyte Sedimentation Rate 3 Months Z79.899 - Other long-term (current) drug therapy Medications: New hydroxychloroquine (Sovuna) 200 mg PO BID 180 tabs 1RF M05.9 - Rheumatoid arthritis with rheumatoid factor, unspecified Discontinued etanercept (Enbrel SureClick) Discontinued Reason: Doctor's Order 50 mg subcut KEENAN 4 mL 4RF M05.9 - Rheumatoid arthritis with rheumatoid factor, unspecified Coding Level of Care Code Est Pt Level 5 (29721) Complex EM visit Add On G2211 Diagnoses Seropositive rheumatoid arthritis M05.9 Osteopenia, unspecified location M85.80 Osteopenia location: unspecified Encounter for monitoring of hydroxychloroquine therapy Z51.81; Z79.89
[2025-01-02 14:34] VITALS: BP 110/80; PULSE 98; O2SAT 99; BMI 28.9
== END 2025-01-02 15:10 | disposition home or self-care (01) ==
LOC: HO.RHES 14:27
PROVIDERS: PCP Internal Medicine; Visit Provider Student in an Organized Health Care Education/Training Program
DX: M05.79 Rheumatoid arthritis with rheumatoid factor of multiple sites without organ or systems involvement (principal); M85.80 Other specified disorders of bone density and structure, unspecified site; Z51.81 Encounter for therapeutic drug level monitoring; Z79.899 Other long term (current) drug therapy
CPT/HCPCS: 99215; G2211